=== PATIENT | female | born 1995 | race Caucasian/White ===

== ENCOUNTER 2022-03-02 09:20 | Outpatient (CLI) | payer BC, SELFPAY ==
[2022-03-02 14:36] LABS: Chloride* 97 mmol/L (96-114); Potassium* 4.1 mmol/L (3.6-5.1); Sodium* 136 mmol/L (135-149)
[2022-03-02 14:38] LABS: Creatinine* 0.6 mg/dL (0.5-1.5); Estimated Glomerular Filt Rate 128 ml/min
[2022-03-02 14:39] LABS: Blood Urea Nitrogen* 14 mg/dL (5-24); Calcium* 9.5 mg/dL (8.4-10.6); Carbon Dioxide* 29 mmol/L (20-32); Glucose* 89 mg/dL (60-115)
== END 2022-03-02 09:21 | disposition home or self-care (01) ==
LOC: LONREF 09:21
PROVIDERS: PCP Family Medicine; Visit Provider Family Medicine
DX: Z01.818 Encounter for other preprocedural examination (principal)
CPT/HCPCS: 80048

== ENCOUNTER 2022-06-27 10:02 | Outpatient (CLI) | payer BC, SELFPAY ==
--- NOTE | 2022-06-27 10:15 | CRLHL7_ITS ---
For Patients: As a result of the Century Cures Act, medical imaging exams and procedure reports are released immediately into your electronic medical record. You may view this report before your referring provider. If you have questions, please contact your health care provider. Indication: Infertility Technique: Hysterosalpingogram. Fluoroscopic time 39 seconds. IMPRESSION: Normal patency of the fallopian tubes with spillage into the peritoneum. No endometrial cavity filling defect. Dictated by Surinder De Guzman MD @ 06/27/2022 11:45:31 AM (Electronically Signed)
--- NOTE | 2022-06-27 10:58 | W.PM.GYNPROC ---
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 Infertility 2. Patent fallopian tubes bilaterally. NAME OF PROCEDURE: Hysterosalpingogram. ANESTHESIA: None. COMPLICATIONS: None. PROCEDURE: After obtaining verbal consent, the patient was placed in the dorsal lithotomy position on the x-ray table. An open-sided bivalve speculum was introduced into the vagina and the cervix easily visualized. The cervix and vagina were then prepped with Betadine. The posterior lip of the cervix was grasped with a single-tooth tenaculum for traction. Os binder/cervical dilator used: No. A balloon tipped double-lumen catheter was then gently inserted through the cervical opening into the uterine cavity to the level of the fundus. The balloon was insufflated with 3 mL of air. The tenaculum and speculum were removed. The patient was repositioned in the supine position, covered, and the radiologist was called to the room. A hysterosalpingogram was then performed. A total of 20 cc of Optiray 300 water soluble contrast dye was injected through the double-lumen catheter under moderate pressure. There was immediate fill of both fallopian tubes and free spillage of dye on both sides. The balloon was deflated and 10 additional cc was injected to visualize the entirety of the uterine cavity. Normal uterine cavity contour. The catheter was removed. The patient tolerated the procedure well, though she did have moderate cramping discomfort during and just after the procedure. She was discharged to home in stable condition and make an appointment with her physician to review all of her lab results and procedure results.
== END 2022-06-27 10:03 | disposition home or self-care (01) ==
LOC: RAD 10:02
PROVIDERS: PCP Family Medicine; Visit Provider Obstetrics & Gynecology
DX: N97.1 Female infertility of tubal origin (principal)
CPT/HCPCS: 58340; 74740; A4649; Q9967

== ENCOUNTER 2022-08-04 15:57 | Outpatient (CLI) | payer BC, SELFPAY | END 2022-08-04 15:58 | disposition home or self-care (01) | LOC: NFLDREF 08-09 21:54 | PROVIDERS: PCP Family Medicine; Referring Provider Family Medicine; Visit Provider Obstetrics & Gynecology | DX: N97.0 Female infertility associated with anovulation (principal) | CPT/HCPCS: 84144 ==

== ENCOUNTER 2022-12-29 08:20 | Outpatient (CLI) | payer BC, SELFPAY ==
--- NOTE | 2022-12-29 08:15 | CRLHL7_ITS ---
For Patients: As a result of the Century Cures Act, medical imaging exams and procedure reports are released immediately into your electronic medical record. You may view this report before your referring provider. If you have questions, please contact your health care provider. INDICATION: First trimester scan, establish dates. COMPARISON: None. TECHNIQUE: Real-time johnson-scale imaging of the pelvis was performed. FINDINGS: Sonographic imaging demonstrates a single living intrauterine gestation. The embryo demonstrates a regular cardiac rate measuring 168 beats per minute. The embryo`s crown-rump length measurement of 1.9 cm corresponds to a gestational age of 8 weeks 3 days with a sonographic due date of 08/07/2023. There is a normal-appearing yolk sac. There are no gross abnormalities noted within the embryo at this early state of development. The gestational sac has a normal appearance. There is no evidence of a perigestational hemorrhage. The amount of fluid within the sac appears appropriate for gestational age. The cervix is closed. The myometrium appears normal. The ovaries are of normal size. Corpus luteal cyst left ovary. There are no suspicious fluid collections noted in the cul-de-sac. IMPRESSION: Normal first trimester OB ultrasound exam. Gestational age calculated at 8 weeks 3 days with a sonographic due date of 08/07/2023. Dictated by Surinder De Guzman MD @ 12/29/2022 9:45:27 AM (Electronically Signed)
== END 2022-12-29 08:21 | disposition home or self-care (01) ==
LOC: US 08:21
PROVIDERS: PCP Family Medicine; Visit Provider Advanced Practice Midwife
DX: Z34.91 Encounter for supervision of normal pregnancy, unspecified, first trimester (principal); Z3A.08 8 weeks gestation of pregnancy
CPT/HCPCS: 76817; 82565; 82570; 84156; 84450; 84460; 84550; 86703; 86803; 86850; 86900; 86901; 87086; 87340

== ENCOUNTER 2022-12-29 09:20 | Outpatient (CLI) | payer BC, SELFPAY | END 2022-12-29 09:21 | disposition home or self-care (01) | PROVIDERS: PCP Family Medicine; Visit Provider Advanced Practice Midwife | DX: Z34.91 Encounter for supervision of normal pregnancy, unspecified, first trimester (principal); Z3A.08 8 weeks gestation of pregnancy | CPT/HCPCS: 82565; 82570; 84156; 84450; 84460; 84550; 86592; 86703; 86762; 86787; 86803; 86850; 86900; 86901; 87086; 87340 ==

== ENCOUNTER 2023-01-24 11:28 | Outpatient (CLI) | payer BC, SELFPAY | END 2023-01-24 11:29 | disposition home or self-care (01) | LOC: NFLDREF 11:42 | PROVIDERS: PCP Family Medicine; Visit Provider Obstetrics & Gynecology | DX: Z34.91 Encounter for supervision of normal pregnancy, unspecified, first trimester (principal); Z3A.12 12 weeks gestation of pregnancy | CPT/HCPCS: 84450; 84460; 87491; 87591 ==

== ENCOUNTER 2023-02-28 13:44 | Outpatient (CLI) | payer BC, SELFPAY | END 2023-02-28 13:45 | disposition home or self-care (01) | LOC: NFLDREF 13:45 | PROVIDERS: PCP Family Medicine; Visit Provider Internal Medicine | DX: R00.2 Palpitations (principal) | CPT/HCPCS: 84443 ==

== ENCOUNTER 2023-03-23 07:24 | Outpatient (CLI) | payer BC, SELFPAY ==
--- NOTE | 2023-03-23 07:15 | CRLHL7_ITS ---
For Patients: As a result of the Century Cures Act, medical imaging exams and procedure reports are released immediately into your electronic medical record. You may view this report before your referring provider. If you have questions, please contact your health care provider. INDICATION: 2nd trimester anatomical survey. TECHNIQUE: Ultrasound OB pelvis transabdominal. Real-time johnson-scale imaging of the fetus was performed as well as color Doppler and spectral Doppler analysis of the umbilical artery. COMPARISON: December 29, 2022. FINDINGS: There is a single living intrauterine gestation. heart activity: Regular cardiac rate of 154 beats per minute. Orientation: Variable. Placenta: Anterior. No previa. Amniotic fluid volume: Normal. Deepest pocket 5 cm. Cervix: 4 cm. Biometry: Biparietal diameter: 20 weeks 3 days, 46 percentile. Head circumference: 20 weeks 2 days, 29th percentile. Abdominal circumference: 21 weeks 0 days, 57th percentile. Femoral length: 19 weeks 6 days, 21st percentile. The composite ultrasound gestational age is calculated at 20 weeks 4 days with an estimated sonographic due date of August 06, 2023. The weight is estimated at 356 grams, the 39th percentile. Anatomical Survey: 4 chamber heart: Visualized. Stomach: Visualized. Kidneys: Visualized. Bladder: Visualized. Spine: Visualized. Sacrum: Visualized. 4 extremities: Visualized. Cord insertion: Visualized. 3V cord: Visualized. Face: Visualized. Nose: Visualized. Lips: Visualized. Cerebellum: Visualized. Cisterna Magna: Visualized. Lateral ventricles: Visualized. IMPRESSION: 1. Single viable intrauterine . 2. No intrinsic abnormalities noted on anatomic survey. Dictated by Art Teresa MD @ 03/24/2023 10:51:26 AM (Electronically Signed)
== END 2023-03-23 07:25 | disposition home or self-care (01) ==
LOC: US 07:25
PROVIDERS: PCP Family Medicine; Visit Provider Obstetrics & Gynecology
DX: Z34.92 Encounter for supervision of normal pregnancy, unspecified, second trimester (principal); Z3A.20 20 weeks gestation of pregnancy
CPT/HCPCS: 76805; 87086

== ENCOUNTER 2023-05-16 10:07 | Outpatient (CLI) | payer BC, SELFPAY ==
--- OUTSIDE RECORDS SUMMARY | 2023-05-17 11:08 | XMS_ITS | Encounter Summary ---
Author Name Unknown Organization [facility] Address [address] [place] [address] Care Team Providers Care Herb Doctor Name Role Phone Jessenia Lott APRN C.N.P. Primary Care Pro vider Reason for Referral * Medication Prior Authorization - Closed Specialty Diagnoses / Procedures Referred By Shabnam zapata Referred To Contact Chai Saab D.O. [facility] [place] [address] Referral ID Status Reason Start Date Expiration Date Visits Re quested Visits Authorized [id number] Closed 1 1 Reason for Visit * Reason Comments Flank Pain Pt states pain/urgen cy/frequency that started on monday. Back pain and pelvic pain started on Monday afternoon. Encounter Details Date Type Department Care Team (Late st Contact Info) Description 12/03/2022 8:32 AM CDT - 12/03/2022 12:20 PM CDT Emergency [facility] [address] [place] [phone] Chai Saab D.O. [address] [place] [phone] Pyelonephritis Acute (Primary Dx); Cystitis Hemorrhagic Discharge Disposition: Home or Self Care Social History Tobacco Use Types Packs/Day Years Used Date Smoking Tobacco: Never Smokeless Tobacco: Never Alcohol Use Standard Drinks/Week Comments Yes 0 (1 standard drink = 0.6 oz pur e alcohol) Social Humiliation, Afraid, Rape, and Kick questionnair e Answer Date Recorded Within the last year, have y ou been afraid of your partner or ex-partner? No 12/14/2021 Within the last year, have y ou been humiliated or emotionally abused in other ways by your partner or ex-partner? No Within the last year, have y ou been kicked, hit, slapped, or otherwise physically hurt by your partner or ex-partner? No 12/14/2021 Within the last year, have y ou been raped or forced to have any kind of sexual activity by your partner or ex-partner? No 12/14/2021 Social Connection and Isolat ion Panel [NHANES] Answer Date Recorded In a typical week, how many times do you talk on the phone with family, friends, or neighbors? More than three times a week 12/14/2021 How often do you get togethe r with friends or relatives? Three times a week 12/14/2021 How often do you attend [facility] or church services? 1 to 4 times per year 12/14/2021 Do you belong to any clubs o r organizations such as mormonism groups, unions, fraternal or athletic groups, or school groups? No 12/14/2021 How often do you attend meet ings of the clubs or organizations you belong to? Never 12/14/2021 Are you , , di vorced, , never , or living with a partner? Living with partner 12/14/2021 AUDIT-C Answer Date Recorded Q1: How often do you have a drink containing alc ohol? 2-3 times a week 12/14/2021 Q2: How many drinks containi ng alcohol do you have on a typical day when you are drinking? 1 or 2 12/14/2021 Q3: How often do you have si x or more drinks on one occasion? Never 12/14/2021 Overall Financial Resource Strain (CARDIA) Answe r Date Recorded How hard is it for you to pa y for the very basics like food, housing, medical care, and heating? Not hard at all 12/14/2021 PHQ-2 Answer Date Recorded PHQ-2 Score 0 05/18/2021 [facility] - Occupational Stress Questionnaire Answer Date Recorded Do you feel stress - tense, restless, nervous, or anxious, or unable to sleep at night because your mind is troubled all the time - these days? Only a little 12/14/2021 Exercise Vital Sign Answer Date Recorde d On average, how many days pe r week do you engage in moderate to strenuous exercise (like a brisk walk)? 3 days 12/14/2021 On average, how many minutes do you engage in exercise at this level? 30 min 12/14/2021 Hunger Vital Sign Answer Date Recorded Within the past 12 months, y ou worried that your food would run out before you got the money to buy more. Never true 12/15/19 Within the past 12 months, t he food you bought just didn't last and you didn't have money to get more. Never true 12/14/2021 PRAPARE - Transportation Answer Date Re corded In the past 12 months, has l ack of transportation kept you from medical appointments or from getting medications? No 11/23 In the past 12 months, has l ack of transportation kept you from meetings, work, or from getting things needed for daily living? No 12/14/2021 Housing Stability Vital Sign Answer Zaki e Recorded In the last 12 months, was t here a time when you were not able to pay the mortgage or rent on time? No 12/14/2021 In the last 12 months, how many places have you lived? 1 12/14/2021 In the last 12 months, was t here a time when you did not have a steady place to sleep or slept in a intermediate (including now)? No 12/14/2021 Nutrition Answer Date Recorded Nutrition: EVOO Fat Source No 12/14 On average, how many serving s of fruits and vegetables do you eat per day (serving size is equal to 1 cup or approximately the size of a tennis ball)? 0-1 12/14/2021 Dental Answer Date Recorded Dental: Regular Dentist Yes 05/18/19 Employment Answer Date Recorded Employment status Employed and actively working without restrictions 12/14/2021 Education Answer Date Recorded What is the highest level of school you have completed or the highest degree you have received? 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 - 12/03/2022 9:58 AM CDT You were seen in the emergency department for evaluation of your symptoms. Your ultrasound is most consistent with early that is complicated by clinical early pyelonephritis. Urine and blood cultures are pending. A dose of antibiotics and IV fluids were given here. Please utilize the painmedication as prescribed. You may take up to 1000 mg of Tylenol every 6 hours and your pain medication also has Tylenol in it and should be factor into this total. The pain medication has a small component of narcotics in it and you should not drive or do anything important as it can make you sleepy/slow reflexes and executive functioning. Please do follow-up with your primary care and obstetricsteams this week where a repeat beta quant/ hormone test and ultrasound should be considered. * Attachments The following attachments cannot be sent through Care Everywhere. * Pyelonephritis During (Pashto) documented in this encounter Medications at Time of Discharge Medication Sig Dispensed Refills Start Date End Date amoxicillin (AMOXIL) 500 mg capsuleIndications:Katy tis Media Acute Serous Right Take 2 capsules (1,000 mg total) by mouth 2 (two) times a day. 40 capsule 0 08/08/2021 dextroamphetamine-amph etamine (ADDERALL) 20 mg tablet Take 20 mg by mouth daily. 0 07/02/2021 naproxen (NAPROSYN) 500 mg tabletIndications:Pain Back Take 1 tablet twice daily with food for the next 5 days and then take twice daily as needed for pain. 24 tablet 0 06/02/2022 113/iron/lmfol/omeg3s ( [id number] ORAL) Take 1 tablet by mouth daily. 0 12/11/2018 spironolactone (ALDACTONE) 50 mg tablet Take 1 tablet by mouth daily. 100 mg in the AM and 50 mg in the PM 0 05/18/2021 SUMATRIPTAN SUCCINATE ORAL 50 mg as needed. 0 11/08/2021 cephalexin (KEFLEX) 500 mg capsule Take 2 capsules (1,000 mg total) by mouth every 12 (twelve) hours for 10 days. 40 capsule 0 12/03/2022 12/13/2022 HYDROcodone-acetaminop hen (NORCO) 5-325 mg per tabletIndications:Acut e Pain Take 1 tablet by mouth every 4 (four) hours as needed for pain for up to 3 days Indication: Acute Pain. 12 tablet 0 12/03/2022 12/06/2022 documented as of this encounter ED Notes * Chai Saab D.O. - 12/03/2022 8:55 AM CDT SUBJECTIVE CHIEF COMPLAINT / REASON FOR VISIT: Flank Pain (Pt states pain/urgency/frequency that started on monday. Back pain and pelvic pain started on Monday afternoon. ) HISTORY OF PRESENT ILLNESS Carmen Madrigal is a 27 y.o. 001 female who presents to the Emergency Department with a chief complaint of bilateral flank pain and abdominal pain. The patient is currently going to infertility treatments by use of letrozole. The patient took Tylenol at 03:00 and noted a slight improvement in her pain but notes a constant 5/10 pain. The patient notes on Monday, 3 days prior, patient hadburning, frequency, and urge with urination. The patient went to urgent care yesterday and was toldshe had a normal urinalysis. A speculum exam and wet prep was also performed and reported as negative. Patient without subjective or objective fevers. Patient has not yet had her first trimester ultrasound and LMP was 1 month prior on October 30. The patient notes her pelvic pain and flank pain worsened yesterday and did not have flank pain at her urgent care visit yesterday. REVIEW OF SYSTEMS Constitutional: Negative for fever. HENT: Negative for congestion. Respiratory: Negative for cough and shortness of breath. Cardiovascular: Negative for chest pain. Gastrointestinal: Positive for abdominal pain. Negative for nausea and vomiting. Genitourinary: Positive for dysuria, flank pain, frequency and urgency. Negative for hematuria. Musculoskeletal: Negative for back pain. Skin: Negative for rash. Allergic/Immunologic: Negative for immunocompromised state. Neurological: Negative for headaches. Psychiatric/Behavioral: Negative for confusion. ALLERGIES / CONTRAINDICATIONS Reviewed in medical record. CURRENT MEDICATIONS Reviewed in medical record. MEDICAL HISTORY History reviewed. No pertinent past medical history. There are no problems to display for this patient. SURGICAL HISTORY History reviewed. No pertinent surgical history. FAMILY HISTORY Reviewed in chart. SOCIAL HISTORY Social History Tobacco Use Smoking status: Never Smokeless tobacco: Never Substance Use Topics Alcohol use: Yes Comment: Social Social History Substance and Sexual Activity Drug Use Never OBJECTIVE INITIAL VITAL SIGNS: Initial Vitals Temperature 12/03/22 0834 37.5 ??C Pulse Rate 12/03/22 0834 67 Heart Rate -- Resp Rate 12/03/22 0834 16 Blood Pressure 12/03/22 0834 122/81 SpO2 12/03/22 0834 98 % Pain Score 12/03/22 0827 5 - Moderate pain PHYSICAL EXAMINATION Constitutional: Nursing note and vitals reviewed. No distress. HENT: Head: Normocephalic and atraumatic. Nose: Nose normal. No nasal discharge. Mouth/Throat: Mucous membranes are dry. Eyes: Conjunctivae are normal. Cardiovascular: Normal rate and regular rhythm. Pulmonary/Chest: Effort normal and breath sounds normal. There is normal air entry. No respiratory distress. Abdominal: Soft. exhibits no distension. There is abdominal tenderness (Mild diffuse). There is no rebound and no guarding. Trace bilateral CVA tenderness Musculoskeletal: General: Normal range of motion. Neurological: Alert and oriented to person, place, and time. Skin: Skin is intact and normal color. She is not diaphoretic. Psychiatric: She has a normal mood and affect. Behavior is normal. ED COURSE: ED Course as of 12/03/22 1204 Sat Dec 03, 2022 0927 us 0956 Ultrasound on-call coming into the facility. Patient's pain improved. Did discuss with obstetrics on-call who recommended ultrasound to rule out ectopic. Urine culture pending. Patient with dry oral mucosa and will place IV to give IV fluids and first dose of antibiotics. Blood cultures obtained from that draw. 1202 Ultrasounds reassuring given quant and patient's exam. Patient feeling much better at this time. Patient will require repeat beta quant and ultrasound at OB follow-up and patient advised to contact OB on Monday to update with this ED visit. Strict ED return precautions given. 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 Narcotic precautions also given. Abdominal exam remains benign and reassuring. VSS. Final Diagnoses: as of 12/03/22 1204 Pyelonephritis Acute Cystitis Hemorrhagic INTERVENTIONS: Medications sodium chloride 0.9 % injection 3 mL (has no administration in time range) sodium chloride 0.9 % injection 10 mL (has no administration in time range) sodium chloride 0.9 % injection 3 mL (3 mL intravenous Given 12/03/22 0914) HYDROcodone-acetaminophen 5-325 mg per tablet 2 tablet (NORCO) (2 tablets oral Given 12/03/22 0851) NaCl 0.9 % bolus 1,000 mL ( intravenous Restarted 12/03/22 1102) cefTRIAXone injection 2 g (ROCEPHIN) (2 g intravenous Given 12/03/22 1014) DIAGNOSTICS LABS: Labs Reviewed CBC WITH DIFFERENTIAL, B - Abnormal Result Value Hemoglobin 12.6 Hematocrit 36.9 Erythrocytes 3.92 MCV 94.1 RBC Distrib Width 11.8 (*) Platelet Count 185 Leukocytes 9.4 Neutrophils 7.34 (*) Lymphocytes 1.33 Monocytes 0.66 Eosinophils 0.10 Basophils 0.01 COMPREHENSIVE METABOLIC PANEL, S/P - Abnormal Potassium, P 3.6 Sodium, P 139 Chloride, P 102 Bicarbonate, P 26 Anion Gap, P 11 BUN (Blood Urea Nitrogen), P 11 Creatinine 0.66 Estimated GFR (eGFR) >90 Calcium, Total, P 9.6 Glucose, P 95 Protein, Total, P 7.5 Albumin, P 4.5 Aspartate Aminotransferase (AST), P 22 Alkaline Phosphatase, P 37 Alanine Aminotransferase (ALT), P 15 Bilirubin, Total, P 1.6 (*) URINALYSIS WITH MICROSCOPIC - Abnormal Source Urine, Urine, Midstream Clarity Cloudy (*) Color Yellow Blood Large (*) Nitrite Positive (*) Leukocyte Esterase Small (*) Protein >=300 (*) Glucose Negative Ketones, QI(U) Negative Bilirubin Negative pH 7.0 Specific [place] 1.020 Urobilinogen 0.2 White Blood Cells 51-100 (*) Red Blood Cells 51-100 (*) Dysmorphic Red Blood Cells <=25 Squamous Cells Occ-3 Bacteria Present (*) HUMAN CHORIONIC GONADOTROPIN (HCG), RADHA, - Abnormal HCG, Quantitative, , P 398 (*) BACTERIAL CULTURE, AEROBIC + SUSC, URINE BACTERIA / AUBRIE CULTURE, BLOOD Narrative: Specimen Information: Specimen ID: [id number] Specimen Source: Blood, Peripheral IV Specimen Comment: Specimen Source Site: Blood Specimen Collection Start Date: 12/03/2022 10:02 AM Specimen Received Date: 12/03/2022 10:18 AM Specimen ID: [id number] Specimen Source: Blood, Peripheral IV Specimen Comment: Specimen Source Site: Blood Specimen Collection Start Date: 12/03/2022 10:02 AM Specimen Received Date: 12/03/2022 10:18 AM Specimen ID: [id number] Specimen Source: Blood, Peripheral IV Specimen Comment: Specimen Source Site: Blood Specimen Collection Start Date: 12/03/2022 10:02 AM Specimen Received Date: 12/03/2022 10:18 AM BACTERIA / AUBRIE CULTURE, BLOOD Narrative: Specimen Information: Specimen ID: [id number] Specimen Source: Blood, Peripheral Draw Specimen Comment: Specimen Source Site: Blood Specimen Collection Start Date: 12/03/2022 10:14 AM Specimen Received Date: 12/03/2022 10:20 AM Specimen ID: [id number] Specimen Source: Blood, Peripheral Draw Specimen Comment: Specimen Source Site: Blood Specimen Collection Start Date: 12/03/2022 10:14 AM Specimen Received Date: 12/03/2022 10:20 AM Specimen ID: [id number] Specimen Source: Blood, Peripheral Draw Specimen Comment: Specimen Source Site: Blood Specimen Collection Start Date: 12/03/2022 10:14 AM Specimen Received Date: 12/03/2022 10:20 AM ABORH, RBC ABO Group A Rh Type POS LACTATE, B/P Lactate, P 0.7 ECG: RADIOLOGY: US OB First Trimester and Transvaginal Final Result of unknown location. No evidence of intrauterine . Possibilities include an intrauterine too early to be identified, miscarriage, or ectopic that is not seen. No positive findings of ectopic . US Kidneys Bilateral with Bladder Final Result Normal kidneys. PROCEDURES: None ASSESSMENT / PLAN I reviewed previous medical records including documentation from previous visits and lab results. The patient is a pleasant 27 y.o. female who presents to the emergency department with a chief complaint of abdominal pain, bilateral flank pain, urinary frequency, urge, and dysuria in the setting of early . The patient is currently undergoing fertility treatments and tested positive yeste rday patient has not yet had ultrasound to confirm IUP or rule out heterotopic. The patient's presentation is complicated by and infertility treatments. A broad differential appropriate for patient's underlying medical conditions, chief complaint, HPI,and physical exam was considered however the patient's clinical presentation is most consistent with developing pyelonephritis. The patient is in no acute cardiopulmonary distress and is nontoxic in appearance. The patient is hemodynamically stable. Disposition pending workup. Workup will begin with labs, urinalysis, and discussion with OB. Ultrasound on- call in currently unavailable. Did discuss the importance of ultrasound for both flank pain and determining location of to be critically important for patient bedside ultrasound unlikely to be helpful and exam is not consistent with acutely surgical process/peritoneal space filled with blood. Will begin treating patient's symptoms with p.o. Meno as discussions of pain control in first trimester discuss and very limited improvement with Tylenol 6 hours prior. Disposition pending aforementioned workup. DIAGNOSIS: Final diagnoses: [N10] Pyelonephritis Acute [N30.90] Cystitis Hemorrhagic ED DISCHARGE MEDS: ED Prescriptions Medication Sig Dispense Start Date End Date Auth. Provider cephalexin (KEFLEX) 500 mg capsule Take 2 capsules (1,000 mg total) by mouth every 12 (twelve) hours for 10 days. 40 capsule 12/03/2022 12/13/2022 Chai Saab D.O. HYDROcodone-acetaminophen (NORCO) 5-325 mg per tablet Take 1 tablet by mouth every 4 (four) hours as needed for pain for up to 3 days Indication: Acute Pain. 12 tablet 12/03/2022 12/06/2022 Chai Saab D.O. DISPOSITION: Home FOLLOW UP: PCP Chai Saab D.O. Emergency Medicine Chai Saab D.O. 12/03/22 1205 documented in this encounter Plan of Treatment Not on file documented as of this encounter Procedures Procedure Name Priority Date/Time Associated Diagnosis Comments US OB FIRST TRIMESTER AND TRANSVAGINAL RAD - Semiurgent (Fast; most ED patients; some inpatients) 12/03/2022 11:05 AM CDT US KIDNEYS BILATERAL WITH BLADDER RAD - Semiurgent (Fast; most ED patients; some inpatients) 12/03/2022 11:05 AM CDT BACTERIA / AUBRIE CULTURE, BLOOD STAT 12/03/2022 10:14 AM CDT LACTATE, B/P STAT 12/03/2022 10:14 AM CDT BACTERIA / AUBRIE CULTURE, BLOOD STAT 12/03/2022 10:02 AM CDT BACTERIAL CULTURE, AEROBIC + SUSC, URINE STAT 12/03/2022 9:09 AM CDT URINALYSIS WITH MICROSCOPIC STAT 12/03/2022 9:09 AM CDT ABORH, RBC STAT 12/03/2022 8:56 AM CDT CBC WITH DIFFERENTIAL, B STAT 12/03/2022 8:56 AM CDT HUMAN CHORIONIC GONADOTROPIN (HCG), RADHA, STAT 12/03/2022 8:56 AM CDT COMPREHENSIVE METABOLIC PANEL, S/P STAT 12/03/2022 8:56 AM CDT documented in this encounter Results * US OB First Trimester and Transvaginal (12/03/2022 11:05 AM CDT) Anatomical Region Laterality Modality Body, Ultrasound OB RST LOS, Ultrasound ARZ LOS, Ultrasound FLA LOS N/A Ultrasound 12/03/2022 11:5 5 AM CDT Impressions 12/03/2022 11:59 AM CDT of unknown location. No evidence of intrauterine . Possibilities include an intrauterine too early to be identified, miscarriage, or ectopic that is not seen. No positive findings of ectopic . Narrative 12/03/2022 11:59 AM CDT EXAM: US OB FIRST TRIMESTER AND TRANSVAGINAL COMPARISON: None TECHNIQUE: Transabdominal and Transvaginal FINDINGS: Number of Gestations: Single Gestational age and DIRK by LMP or OB/EHR assignment: 4 w 6 d, DIRK: 08/06/2023 INTRAUTERINE Pole: Not seen Gestational Sac: Not seen Yolk Sac: Not seen Uterus: Thickened endometrium. Trace fluid in the endometrial canal. Right Ovary/Adnexa: Normal. Left Ovary/Adnexa: 1.3 cm corpus luteum. Intraperitoneal Fluid: Trace. Procedure Note Jack Castillo M.D. - 12/03/2022 EXAM: US OB FIRST TRIMESTER AND TRANSVAGINAL COMPARISON: None TECHNIQUE: Transabdominal and Transvaginal FINDINGS: Number of Gestations: Single Gestational age and DIRK by LMP or OB/EHR assignment: 4 w 6 d, DIRK:08/06/2023 INTRAUTERINE Pole: Not seen Gestational Sac: Not seen Yolk Sac: Not seen Uterus: Thickened endometrium. Trace fluid in the endometrial canal. Right Ovary/Adnexa: Normal. Left Ovary/Adnexa: 1.3 cm corpus luteum. Intraperitoneal Fluid: Trace. IMPRESSION: of unknown location. No evidence of intrauterine .Possibilities include an intrauterine too early to be identified, miscarriage,or ectopic that is not seen. No positive findings of ectopic . Chai Saab D.O. IMG OB US PROCEDURE S * US Kidneys Bilateral with Bladder (12/03/2022 11:05 AM CDT) Anatomical Region Laterality Modality Abdomen, Renal, Ultrasound R ST LOS, Ultrasound ARZ LOS, Ultrasound FLA LOS Bilateral Ultrasound 12/03/2022 11:5 2 AM CDT Impressions 12/03/2022 11:54 AM CDT Normal kidneys. Narrative 12/03/2022 11:54 AM CDT EXAM: US KIDNEYS BILATERAL WITH BLADDER COMPARISON: None FINDINGS: Right kidney: 11.2 cm Cortical thickness: Normal. Parenchymal echogenicity: Normal. Collecting system: No hydronephrosis. Masses: None detected. Left kidney: 9.9 cm Cortical thickness: Normal. Parenchymal echogenicity: Normal. Collecting system: No hydronephrosis. Masses: None detected. Bladder: Nondistended. Procedure Note Jack Castillo M.D. - 12/03/2022 EXAM: US KIDNEYS BILATERAL WITH BLADDER COMPARISON: None FINDINGS: Right kidney: 11.2 cm Cortical thickness: Normal. Parenchymal echogenicity: Normal. Collecting system: No hydronephrosis. Masses: None detected. Left kidney: 9.9 cm Cortical thickness: Normal. Parenchymal echogenicity: Normal. Collecting system: No hydronephrosis. Masses: None detected. Bladder: Nondistended. IMPRESSION: Normal kidneys. Chai Saab D.O. IMG US PROCEDURES * Lactate, baseline (12/03/2022 10:14 AM CDT) Lactate, P 0.7 0.5 - 2.2 mmol/L 12/03/2022 10:39 AM CDT NPRG Blood (Blood, Venous) 12/03/2022 10:14 AM CDT 12/03/2022 10:19 AM CDT Chai Saab D.O. LAB BLOOD NON ADD-O N [facility] [address] [place] [address], [place] [address] [place] [address] * Bacteria / Aubrie Culture, Blood #2 (12/03/2022 10:14 AM CDT) Bacteria/Alise da Culture, Blood No growth after 5 day/s of incubation. 12/08/2022 11:03 AM CDT NPRG Blood (Blood, Peripheral Draw) 12/03/2022 10:14 AM CDT 12/03/2022 10:20 AM CDT Comment:Specimen Source Site : Blood Chai Saab D.O. LAB MICROBIOLOGY - GENERAL ORDERABLES Performing Organization Address City/[facility]/ZIP Co de Phone Number [facility] [address] [place] [address], [place] [address] [place] [address] * Bacteria / Aubrie Culture, Blood #1 (12/03/2022 10:02 AM CDT) Bacteria/Alise da Culture, Blood No growth after 5 day/s of incubation. 12/08/2022 11:03 AM CDT NPRG Blood (Blood, Peripheral IV) 12/03/2022 10:02 AM CDT 12/03/2022 10:18 AM CDT Comment:Specimen Source Site : Blood Chai Saab D.O. LAB MICROBIOLOGY - GENERAL ORDERABLES Performing Organization Address City/[facility]/ZIP Co de Phone Number [facility] [address] [place] [address], [place] [address] [place] [address] * (ABNORMAL) Bacterial Culture, Aerobic + Susceptibility, Urine (12/03/2022 9:09 AM CDT) [facility] Urine Culture ESCHERICHIA COLI >100,000 cfu/mL (A) 12/05/2022 8:48 AM CDT MKTO Urine (Urine, Midstream) 12/03/2022 9:09 AM CDT 12/03/2022 5:01 PM CDT Comment:Specimen Source Site : Urine Narrative Organism Antibiotic Method Susceptibility Escherichia coli Ampicillin SUSCEPTIBILITY, VENUS (MCG/ML) <=2 mcg/mL: Susceptible Escherichia coli Ampicillin + Sulbactam SUSCEPTI BILITY, VENUS (MCG/ML) <=2 mcg/mL: Susceptible Escherichia coli Piperacillin + Tazobactam SUSCE PTIBILITY, VENUS (MCG/ML) <=4 mcg/mL: Susceptible Escherichia coli Cefazolin SUSCEPTIBILITY, VENUS (MCG/ML) <=4 mcg/mL: Susceptible Comment: The interpretation applies to uncomplicated urinary tract infections only. It also applies to these oral cephalosporins: cefuroxime, cephalexin, and cefprozil. Escherichia coli Ceftazidime SUSCEPTIBILITY, VENUS (MCG/ML) <=1 mcg/mL: Susceptible Escherichia coli Ceftriaxone SUSCEPTIBILITY, VENUS (MCG/ML) <=1 mcg/mL: Susceptible Escherichia coli Cefepime SUSCEPTIBILITY, VENUS (MCG/ML) <=1 mcg/mL: Susceptible Escherichia coli Aztreonam SUSCEPTIBILITY, VENUS (MCG/ML) <=1 mcg/mL: Susceptible Escherichia coli Ertapenem SUSCEPTIBILITY, VENUS (MCG/ML) <=0.5 mcg/mL: Susceptible Escherichia coli Meropenem SUSCEPTIBILITY, VENUS (MCG/ML) <=0.25 mcg/mL: Susceptible Escherichia coli Gentamicin SUSCEPTIBILITY, VENUS (MCG/ML) <=1 mcg/mL: Susceptible Escherichia coli Tobramycin SUSCEPTIBILITY, VENUS (MCG/ML) <=1 mcg/mL: Susceptible Escherichia coli Levofloxacin SUSCEPTIBILITY, VENUS (MCG/ML) <=0.12 mcg/mL: Susceptible Escherichia coli Nitrofurantoin SUSCEPTIBILITY, VENUS (MCG/ML) <=16 mcg/mL: Susceptible Escherichia coli Trimethoprim + Sulfamethoxazole SUSCEPTIBILITY, VENUS (MCG/ML) <=20 mcg/mL: Susceptible Chai Saab D.O. LAB MICROBIOLOGY - GENERAL ORDERABLES [facility] [address] [place] [address], [facility] MKTO [facility] [place] [address] [place] [address] * (ABNORMAL) Urinalysis with Microscopic: Urine, Midstream (12/03/2022 9:09 AM CDT) Source Urine, Urine, Midstream 12/03/2022 9:09 AM CDT NPRG Clarity Cloudy(A) Clear 12/03/2022 9:12 AM CDT NPRG Color Yellow 12/03/2022 9:12 AM CDT NPRG Comment: ----REFERENCE VALUE---- Colorless Yellow [place] Blood Large(A) Negative 12/03/2022 9:12 AM CDT NPRG Nitrite Positive(A) Negative 12/03/2022 9:12 AM CDT NPRG Leukocyte Esterase Small(A) Negative 12/03/2022 9:12 AM CDT NPRG Protein >=300(A) mg/dL 12/03/2022 9:12 AM CDT NPRG Comment: ----REFERENCE VALUE---- Negative Trace Glucose Negative Negative mg/dL 12/03/2022 9:12 AM CDT NPRG Ketones, QI(U) Negative Negative mg/dL 12/03/2022 9:12 AM CDT NPRG Bilirubin Negative Negative 12/03/2022 9:12 AM CDT NPRG pH 7.0 5.0 - 8.0 12/03/2022 9:12 AM CDT NPRG Specific [place] 1.020 1.001 - 1.035 12/03/2022 9:12 AM CDT NPRG Urobilinogen 0.2 0.2 - 1.0 mg/dL 12/03/2022 9:12 AM CDT NPRG White Blood Cells 51-100(A) /hpf 12/03/2022 9:25 AM CDT NPRG Comment: ----REFERENCE VALUE---- Males: 0-3 Females: 0-10 Unknown: 0-10 Red Blood Cells 51-100(A) 0 - 2 /hpf 9:25 AM CDT NPRG Dysmorphic Red Blood Cells <=25 <=25 % 12/03/2022 9:25 AM CDT NPRG Squamous Cells Occ-3 /hpf 12/03/2022 9:25 AM CDT NPRG Bacteria Present(A) None Seen 12/03/2022 9:25 AM CDT NPRG Urine (Urine, Midstream) 12/03/2022 9:09 AM CDT 12/03/2022 9:09 AM CDT Chai Saab D.O. LAB URINE ORDERABLE S Performing Organization Address City/[facility]/ZIP Co de Phone Number [facility] [address] [place] [address], [facility] NPRG [place] [address] [place] [address] * ABO/Rh, RBC (12/03/2022 8:56 AM CDT) ABO Group A 12/03/2022 10: 13 AM CDT NPRG Rh Type POS 12/03/2022 10: 13 AM CDT NPRG Blood (Blood, Venous) 12/03/2022 8:56 AM CDT 12/03/2022 9:00 AM CDT Chai Saab D.O. LAB BLOOD BANK TEST ORDERABLES Performing Organization Address [facility] Co de Phone Number [facility] [address] [place] [address], [facility] NPRG [address] [address] * (ABNORMAL) hCG (Human Chorionic Gonadotropin), Quantitative, (12/03/2022 8:56 AM CDT) HCG, Quantitative, , P 398(H) <5 IU/L 12/03/2022 9:22 AM CDT NPRG Blood (Blood, Venous) 12/03/2022 8:56 AM CDT 12/03/2022 9:00 AM CDT Chai Saab D.O. LAB BLOOD ADD-ON Performing Organization Address City/[facility]/ZIP Co de Phone Number [facility] [address] [place] [address], [place] NPRG [facility] [address] [place] [address] * (ABNORMAL) Comprehensive Metabolic Panel (12/03/2022 8:56 AM CDT) Potassium, P 3.6 3.6 - 5.2 mmol/L 12/03/2022 9:24 AM CDT NPRG Sodium, P 139 135 - 145 mmol/L 12/03/2022 9:24 AM CDT NPRG Chloride, P 102 98 - 107 mmol/L 12/03/2022 9:24 AM CDT NPRG Bicarbonate, P 26 22 - 29 mmol/L 12/03/2022 9:24 AM CDT NPRG Anion Gap, P 11 7 - 15 12/03/2022 9:24 AM CDT NPRG BUN (Blood Urea Nitrogen), P 11 6 - 21 mg/dL 12/03/2022 9:24 AM CDT NPRG Creatinine 0.66 0.59 - 1.04 mg/dL 12/03/2022 9:24 AM CDT NPRG Estimated GFR (eGFR) >90 >=60 mL/min/BS A 12/03/2022 9:24 AM CDT NPRG Comment: Estimated GFR calculated using the 2020 CKD_EPI creatinine equation. Calcium, Total, P 9.6 8.6 - 10.0 mg/dL 12/03/2022 9:24 AM CDT NPRG Glucose, P 95 70 - 140 mg/dL 12/03/2022 9:24 AM CDT NPRG Protein, Total, P 7.5 6.3 - 7.9 g/dL 12/03/2022 9:24 AM CDT NPRG Albumin, P 4.5 3.5 - 5.0 g/dL 12/03/2022 9:24 AM CDT NPRG Aspartate Aminotransferase (AST), P 22 8 - 43 U/L 12/03/2022 9:24 AM CDT NPRG Alkaline Phosphatase, P 37 35 - 104 U/L 12/03/2022 9:24 AM CDT NPRG Alanine Aminotransferase (ALT), P 15 7 - 45 U/L 12/03/2022 9:24 AM CDT NPRG Bilirubin, Total, P 1.6(H) <=1.2 mg/dL 12/03/2022 9:24 AM CDT NPRG Blood (Blood, Venous) 12/03/2022 8:56 AM CDT 12/03/2022 9:00 AM CDT Chai Saab D.O. LAB BLOOD ADD-ON [facility] [address] [place] [address], [facility] NPRG [facility] [address] [place] [address] * (ABNORMAL) CBC with Differential, Blood (12/03/2022 8:56 AM CDT) Hemoglobin 12.6 11.6 - 15.0 g/dL 12/03/2022 9:05 AM CDT NPRG Hematocrit 36.9 35.5 - 44.9 % 12/03/2022 9:05 AM CDT NPRG Erythrocytes 3.92 3.92 - 5.13 x10(12)/L 12/03/2022 9:05 AM CDT NPRG MCV 94.1 78.2 - 97.9 fL 12/03/2022 9:05 AM CDT NPRG RBC Distrib Width 11.8(L) 12.2 - 16.1 % 12/03/2022 9:05 AM CDT NPRG Platelet Count 185 157 - 371 x10(9)/L 12/03/2022 9:05 AM CDT NPRG Leukocytes 9.4 3.4 - 9.6 x10(9)/L 12/03/2022 9:05 AM CDT NPRG Neutrophils 7.34(H) 1.56 - 6.45 x10(9)/L 12/03/2022 9:05 AM CDT NPRG Lymphocytes 1.33 0.95 - 3.07 x10(9)/L 12/03/2022 9:05 AM CDT NPRG Monocytes 0.66 0.26 - 0.81 x10(9)/L 12/03/2022 9:05 AM CDT NPRG Eosinophils 0.10 0.03 - 0.48 x10(9)/L 12/03/2022 9:05 AM CDT NPRG Basophils 0.01 0.01 - 0.08 x10(9)/L 12/03/2022 9:05 AM CDT NPRG Blood (Blood, Venous) 12/03/2022 8:56 AM CDT 12/03/2022 9:00 AM CDT Chai Saab D.O. LAB BLOOD ADD-ON [facility] [address] [place] [address], [place] NPRG [facility] [address] [place] [address] documented in this encounter Visit Diagnoses Diagnosis Pyelonephritis Acute- Primary Cystitis Hemorrhagic documented in this encounter Administered Medications Inactive Administered Medications - up to 3 most recent administrations Medication Order MAR Action Action Date Dose Rate Site cefTRIAXone injection 2 g (ROCEPHIN) 2 g, intravenous, Once, On 12/03/22 at 0955, For 1 dose, If needed, reconstitute vial per package insert instructions. See IVAG for administration guidelines., Drug Monitoring Program: Pharmacist to adjust medication dosing based on indication and drug clearance factors., Indications: Upper UTI (pyelonephritis) Given 12/03/2022 10:14 AM CDT 2 g HYDROcodone-acetaminophen 5-325 mg per tablet 2 tablet (NORCO) 2 tablet, oral, Once, On 12/03/22 at 0849, For 1 dose Given 12/03/2022 8:51 AM CDT 2 tablets NaCl 0.9 % bolus 1,000 mL 1,000 mL, intravenous, at 1,000 mL/hr, Administer over 1 Hours, Once, On 12/03/22 at 0955, For 1 dose Restarted 12/03/2022 11:02 AM CDT 1000 mL/hr New Bag 12/03/2022 10:15 AM CDT 1,000 mL 1000 mL/hr sodium chloride 0.9 % injection 10 mL 10 mL, intravenous, As needed, line care, Starting on 12/03/22 at 0846, Peripheral Intravenous Catheter and Rapid Infusion Catheter, prior to blood sampling, post blood transfusion or post blood sampling sodium chloride 0.9 % injection 3 mL 3 mL, intravenous, As needed, line care, Starting on 12/03/22 at 0846, Prior to and following infusion and between multiple consecutive infusions: sodium chloride 0.9 % injection sodium chloride 0.9 % injection 3 mL 3 mL, intravenous, Every 12 hours scheduled, First dose on 12/03/22 at 0900, Peripheral Intravenous Catheter and Rapid Infusion Catheter, when no infusion to maintain patency Given 12/03/2022 9: 14 AM CDT 3 mL documented in this encounter Active and Recently Administered Medications Times are shown in CDT. Scheduled Medication Order 12/01/2022 12/02/2022 12/03/2022 cefTRIAXone injection 2 g (ROCEPHIN) (COMPLETED) 2 g, intravenous, Once, On 12/03/22 at 0955, For 1 dose, If needed, reconstitute vial per package insert instructions. See IVAG for administration guidelines., Drug Monitoring Program: Pharmacist to adjust medication dosing based on indication and drug clearance factors., Indications: Upper UTI (pyelonephritis) 1014 (Given - Provid er: Josue Fuller RBlancaN.) HYDROcodone-acetaminophen 5-325 mg per tablet 2 tablet (NORCO) (COMPLETED) 2 tablet, oral, Once, On 12/03/22 at 0849, For 1 dose 0851 (Given - Provid er: Josue Fuller RBlancaNBlanca) NaCl 0.9 % bolus 1,000 mL (COMPLETED) 1,000 mL, intravenous, at 1,000 mL/hr, Administer over 1 Hours, Once, On 12/03/22 at 0955, For 1 dose 1015 (New Bag - Prov ider: Josue Fuller R.N.)1025 (Stopped - Provider: Josue Fuller R.N.)1102 (Restarted - Provider: Josue Fuller R.N.)1200 (Stopped - Provider: Lashawn Pradhan R.N.) sodium chloride 0.9 % injection 3 mL 3 mL, intravenous, Every 12 hours scheduled, First dose on 12/03/22 at 0900, Peripheral Intravenous Catheter and Rapid Infusion Catheter, when no infusion to maintain patency 0914 (Given - Provid er: Josue R Alina, R.N.) PRN Medication Order 12/01/2022 12/02/2022 12/03/2022 sodium chloride 0.9 % injection 10 mL 10 mL, intravenous, As needed, line care, Starting on 12/03/22 at 0846, Peripheral Intravenous Catheter and Rapid Infusion Catheter, prior to blood sampling, post blood transfusion or post blood sampling sodium chloride 0.9 % injection 3 mL 3 mL, intravenous, As needed, line care, Starting on 12/03/22 at 0846, Prior to and following infusion and between multiple consecutive infusions: sodium chloride 0.9 % injection documented in this encounter Care Teams Herb Doctor Relationship Specialty Start Date End Date Jessenia Lott APRN, C.N.P. [facility] [place] [phone] PCP - General Family Medicine 05/17/21 documented as of this encounter
--- OUTSIDE RECORDS SUMMARY | 2023-05-17 11:08 | XMS_ITS | Clinical Summary ---
Author Name Unknown Organization [facility] Address [address] [place] [address] Care Team Providers Care Bristle Machine Operator Name Role Phone Jessenia Lott APRN, C.N.P. Primary Care Pro vider Source Comments Patient records contain information from all sites at [facility]. For routine questions regarding patient records, call [phone] during business hours, M-F 8:00 AM - 5:00 PM Central Time. Record requests for emergency care only can be directed to [phone] at any time.[facility] Allergies No known active allergies Medications Medication Sig Dispensed Refills Start Date End Date Status spironolactone (ALDACTONE) 50 mg tablet Take 1 tablet by mouth daily. 100 mg in the AM and 50 mg in the PM 0 05/18/2021 Active 113/iron/lmfol/ome g3s ( 921-[id number]-[id number]-OM EG3 ORAL) Take 1 tablet by mouth daily. 0 12/11/2018 Active dextroamphetamine- amphetamine (ADDERALL) 20 mg tablet Take 20 mg by mouth daily. 0 07/02/2021 Active amoxicillin (AMOXIL) 500 mg capsuleIndications :Otitis Media Acute Serous Right Take 2 capsules (1,000 mg total) by mouth 2 (two) times a day. 40 capsule 0 08/08/2021 Active Additional Information Patient not taking.Reported on 06/02/2022 SUMATRIPTAN SUCCINATE ORAL 50 mg as needed. 0 11/08/2021 Acti ve cyclobenzaprine (FLEXERIL) 5 mg tabletIndications: Pain Back Take 1 tablet (5 mg total) by mouth 3 (three) times a day as needed for muscle spasms for up to 7 days. 20 tablet 0 06/02/2022 Active naproxen (NAPROSYN) 500 mg tabletIndications: Pain Back Take 1 tablet twice daily with food for the next 5 days and then take twice daily as needed for pain. 24 tablet 0 06/02/2022 Active Active Problems Comments Yes No known active problems Immunizations Name Administration Dates Next Due HepB Adult 12/10/2019,10/09/2019,07/22/2019 Influenza (Nasal), Unspecified 02/08/2019 MMR 07/22/2019 Tdap 10/03/2018 JOSE 07/22/2019 influenza vaccine quad (FLUZ ONE/FLUARIX) (6 months and older)(PF) 01/15/2020 Social History Tobacco Use Types Packs/Day Years Used Date Smoking Tobacco: Never Smokeless Tobacco: Never Tobacco Cessation:Counseling Given: Not Answered Alcohol Use Standard Drinks/Week Comments Yes 0 [...] week 12/14/2021 How often do you attend [facility] or scientologist services? 1 to 4 times per year 12/14/2021 Do you belong to any clubs o r organizations such as amish groups, unions, fraternal or athletic groups, or [...] Answer Date Recorded PHQ-2 Score 0 05/18/2021 [facility] of Occupat ional Health - Occupational Stress Questionnaire Answer Date Recorded [...] money to buy more. Never true 12/15/19 22 Within the past 12 months, t he [...] place to sleep or slept in a retirement (including now)? No 12/14/2021 Nutrition Answer Date [...] Sex Assigned at Female 04/30/2021 10:45 AM NEWS PRODUCTION SUPERVISOR Gender Identity Female 04/30/2021 10:45 AM NEWS PRODUCTION SUPERVISOR Sexual Orientation Straight 04/30/2021 10 :45 AM NEWS PRODUCTION SUPERVISOR Last Filed Vital Signs Vital Sign Reading [...] Mass Index 20.74 12/03/2022 8:34 AM CDT Plan of Treatment Health Maintenance Due Date Last Done Comments HIV Screening 1996 Hepatitis C Screening 1996 COVID-19 Vaccine (#1) 01/30/1997 HPV Vaccines (1 - 2-dose series) 2005 Varicella Vaccines (2 of 2 - 13+ 2-dose series) 08/19/2019 07/22/2019 Influenza Vaccine (#1) 2023 0, 02/08/2019 Depression Screening (Annual PHQ-2) 04/24/2023 Creatinine Level (Kidney Function Test) 12/04/2023 12/03/2022, 05/18/2021, 12/30/2018 Potassium Level 12/04/2023 12/03/2022, 05/18/2021, 12/30/2018 Sodium Level 12/04/2023 12/03/2022, 05/18/2021, 12/30/2018 Cervical Cancer Screening 05/28/20242021, 11/01/2019, 12/03/2018 (Performed elsewhere) DTaP,Tdap,and Td Vaccines (2 - Td or Tdap) 10/03/2028 10/03/2018 RSV vaccine - (32-36 weeks) or 60+ years (1 - 1-dose 60+ series) 2056 Hepatitis B Vaccines Completed 12/10/2019, 10/09/2019, 07/22/2019 Chlamydia and Gonorrhea Screening Discontinued 05/28/2021 Pneumococcal vaccine (0-64 years) Aged Out No longer eligible b ased on patient's age to complete this topic Care Teams Bristle Machine Operator Relationship Specialty Start Date End Date Jessenia Lott APRN, C.N.P. [address] [place] [phone] PCP - General Family Medicine 05/17/21
--- OUTSIDE RECORDS SUMMARY | 2023-05-17 11:08 | XMS_ITS | Encounter Summary ---
Author Name Unknown Organization [facility] Address [address] [place] [address] Care Team Providers Care Regional Environmental Manager Name Role Phone Jessenia Lott APRN, C.N.P. Primary Care Pro vider Reason for Visit * Reason Onset Date Comments Flank Pain 12/03/2022 Encounter Details Date Type Department Care Team (Late st Contact Info) Description 12/03/2022 Nurse Triage Department of Family Medicine in [place], [place] [address] [place] [phone] Traci Vargas, R.NBlanca [address] [place] [phone] Flank Pain Social History Tobacco Use Types Packs/Day Years [...] week 12/14/2021 How often do you attend chur or voodoo services? 1 to 4 times per year 12/14/2021 Do you belong to any clubs o r organizations such as sabianism groups, unions, fraternal or athletic groups, or [...] Answer Date Recorded PHQ-2 Score 0 05/18/2021 [facility] [place] of Occupat ional Health - Occupational Stress [...] place to sleep or slept in a long-term (including now)? No 12/14/2021 Nutrition Answer Date [...] Sex Assigned at Female 04/30/2021 10:45 AM RECEPTIONIST NURSE Gender Identity Female 04/30/2021 10:45 AM RECEPTIONIST NURSE Sexual Orientation Straight 04/30/2021 10 :45 AM RECEPTIONIST NURSE documented as of this encounter Miscellaneous Notes * Telephone Encounter - Traci Vargas R.N. - 12/03/2022 6:30 AM CDT Chief Complaint / Reason for Call Patient is a 27 y.o. female calling regarding Flank Pain. Assessment Concern: pain with urination, constant flank pain (5/10) Present for: 3 days, flank pain 12 hours Home cares tried: was seen in (said urine was clear), Tylenol Calling to request: advice The recommended disposition is See a health care provider within 24 hours. She will come to . Encouraged call back with new, worsening, or persistent symptoms. Reason for Disposition Flank pain (Exception: Pain that is only present with movement.) Protocols used: - Back [id number]-GLNPM-BO Care Advice Patient/Caregiver understands and will follow care advice?: Yes, able to teach back PAIN MEDICINE DURING - ACETAMINOPHEN: * For pain relief, you can take acetaminophen (e.g., Tylenol). * It is an jbgn-nlx-ometmvo (OTC) pain drug. You can buy it at the drugstore. * Generally, it is best to avoid medicine use during . However, acetaminophen is considered safe during . * ACETAMINOPHEN - REGULAR STRENGTH TYLENOL: Take 650 mg (two 325 mg pills) by mouth every 4 to 6 hours as needed. Each Regular Strength Tylenol pill has 325 mg of acetaminophen. The most you should take each day is 3,250 mg (10 pills a day). * ACETAMINOPHEN - EXTRA STRENGTH TYLENOL: Take 1,000 mg (two 500 mg pills) every 8 hours as needed.Each Extra Strength Tylenol pill has 500 mg of acetaminophen. The most you should take each day is 3,000 mg (6 pills a day). CALL BACK IF: * Fever occurs * You become worse documented in this encounter Plan of Treatment Not on file documented as of this encounter Visit Diagnoses Not on filedocumented in this encounter Care Teams Regional Environmental Manager Relationship Specialty Start Date End Date Jessenia Lott APRN, C.N.P. [place] [phone] PCP - General Family Medicine 05/17/21 documented as of this encounter
--- OUTSIDE RECORDS SUMMARY | 2023-05-17 11:08 | XMS_ITS ---
Author Name Unknown Organization [facility] Address [address] [place] [address] Care Team Providers Care Motor Grader Operator Name Role Phone Unavailable Unavailable Unavailable Surgery Details Not on file Complications Check Surgery Details section. Procedure Estimated Blood Loss Check Surgery Details section. Procedure Findings Check Surgery Details section. Procedure Specimens Taken Check Surgery Details section.
--- OUTSIDE RECORDS SUMMARY | 2023-05-17 11:08 | XMS_ITS | Encounter Summary ---
Author Name Unknown Organization [facility] Address [address] [place] [address] Care Team Providers Care Stenographer Print Shop Name Role Phone Jessenia Lott APRN, C.N.P. Primary Care Pro vider Reason for Visit * Reason Onset Date Comments Left Without Being Seen 05/12/2023 Encounter Details Date Type Department Care Team (Late st Contact Info) Description 12/03/2022 8:30 AM CDT Office Visit Urgent Care, [facility], in [place], [place] [address] [place] [phone] Procedure And Treatment Not Carried Out Due To Patient Leaving Prior To Being Seen By Health Care Provider (Primary Dx) Social History Tobacco Use Types Packs/Day Years [...] How often do you attend chur or hinduism services? 1 to 4 times per year 12/14/2021 Do you belong to any clubs o r organizations such as confucianist groups, unions, fraternal or athletic groups, or [...] Answer Date Recorded PHQ-2 Score 0 05/18/2021 [facility] of Occupat ional Health - Occupational Stress [...] place to sleep or slept in a half-way (including now)? No 12/14/2021 Nutrition Answer Date [...] Sex Assigned at Female 04/30/2021 10:45 AM INSURANCE SALES ASSOCIATE Gender Identity Female 04/30/2021 10:45 AM INSURANCE SALES ASSOCIATE Sexual Orientation Straight 04/30/2021 10 :45 AM INSURANCE SALES ASSOCIATE documented as of this encounter Progress Notes * Mary Jane Rodrigues, DIRECTOR DESIGN - 12/03/2022 8:30 AM CDT Carmen Madrigal was scheduled and checked in for an appointment but left before being seen. RANCE SALES ASSOCIATE documented in this encounter Plan of Treatment Not on file documented as of this encounter Visit Diagnoses Diagnosis Procedure And Treatment Not Carried Out Due To Patient Leaving Prior To Being Seen By Health Care Provider- Primary documented in this encounter Care Teams Stenographer Print Shop Relationship Specialty Start Date End Date Jessenia Lott APRN, C.N.P. [address] [place] [phone] PCP - General Family Medicine 05/17/21 documented as of this encounter
--- OUTSIDE RECORDS SUMMARY | 2023-05-17 11:08 | XMS_ITS | Referral Summary ---
Author Name Unknown Organization [facility] Address [address] [place] [address] Care Team Providers Care Director Of Cardiac Cath Lab Name Role Phone Jessenia Lott APRN, C.N.P. Primary Care Pro vider Source Comments Patient records contain information from all sites at [facility]. For routine questions regarding patient records, call [phone] during business hours, M-F 8:00 AM - 5:00 PM Central Time. Record requests for emergency care only can be directed to [phone] at any time.[facility] Allergies No known active allergies Medications Medication Sig Dispensed Refills Start Date End Date Status spironolactone (ALDACTONE) 50 mg tablet Take 1 tablet by mouth daily. 100 mg in the AM and 50 mg in the PM 0 05/18/2021 Active 113/iron/lmfol/ome g3s ( [id number]-OM EG3 ORAL) Take 1 tablet by mouth [...] week 12/14/2021 How often do you attend [facility] or holiness services? 1 to 4 times per year 12/14/2021 Do you belong to any clubs o r organizations such as evangelical groups, unions, fraternal or athletic groups, or [...] Answer Date Recorded PHQ-2 Score 0 05/18/2021 [facility] of Occupat ional Health - Occupational Stress [...] place to sleep or slept in a care home (including now)? No 12/14/2021 Nutrition Answer Date [...] Sex Assigned at Female 04/30/2021 10:45 AM VALVE TECHNICIAN Gender Identity Female 04/30/2021 10:45 AM VALVE TECHNICIAN Sexual Orientation Straight 04/30/2021 10 :45 AM VALVE TECHNICIAN Last Filed Vital Signs Vital Sign Reading [...] 12/03/2022 8:34 AM CDT Plan of Treatment Not on file Care Teams Director Of Cardiac Cath Lab Relationship Specialty Start Date End Date Jessenia Lott, DEX, C.N.P. [address] [place] [phone] PCP - General Family Medicine 05/17/21
--- OUTSIDE RECORDS SUMMARY | 2023-05-17 11:09 | XMS_ITS | Encounter Summary ---
Author Name Unknown Organization [facility] Address [address] [place] [address] Care Team Providers Care Digital Technician Name Role Phone Jessenia Lott APRN, C.N.P. Primary Care Pro vider Reason for Visit * Reason Comments Back Pain Shoulder Pain Fell on Monday. Lef t shoulder blade hurts at all times Encounter Details Date Type Department Care Team (Late st Contact Info) Description 06/02/2022 4:00 PM SLIP MIXER Office Visit Urgent Care, [facility], in [place], [place] [address] [place] [address] Miriam Loo APRN, C.N.P., D.N.P. Pain Back (Primary Dx); History Of Falling Discharge Disposition: Home or Self Care Social [...] How often do you attend chur or yazidism services? 1 to 4 times per year 12/14/2021 Do you belong to any clubs o r organizations such as adventist groups, unions, fraternal or athletic groups, or [...] Answer Date Recorded PHQ-2 Score 0 05/18/2021 [facility] of Occupat ional Health - Occupational Stress [...] have received? Associate degree: academic program 05/18/2021 Sex and Gender Information Value Date Recorded Sex Assigned at Female 04/30/2021 10:45 AM SLIP MIXER Gender Identity Female 04/30/2021 10:45 AM SLIP MIXER Sexual Orientation Straight 04/30/2021 10 :45 AM SLIP MIXER documented as of this encounter Last Filed Vital Signs Vital Sign Reading Time Taken Comments Blood Pressure 119/78 06/02/2022 4:06 PM SLIP MIXER Pulse 113 06/02/2022 4:06 PM SLIP MIXER Temperature 36.6 ??C (97.9 ??F) 06/02/2022 4:06 PM CS T Respiratory Rate 18 06/02/2022 4:06 PM SLIP MIXER Oxygen Saturation 98% 06/02/2022 4:06 PM SLIP MIXER Inhaled Oxygen Concentration - - Weight 52.8 kg (116 lb 6.5 oz) 06/02/2022 4:06 P M SLIP MIXER Height 162.2 cm (5' 3.86) 06/02/2022 4:06 PM CS T Body Mass Index 20.07 06/02/2022 4:06 PM SLIP MIXER documented in this encounter Patient Instructions * Attachments The following attachments cannot be sent through Care Everywhere. * Back pain (Lebanese) documented in this encounter Progress Notes * Miriam Loo APRN, C.N.P., D.N.P. - 06/02/2022 4:00 PM CST SUBJECTIVE CHIEF COMPLAINT / REASON FOR VISIT Back Pain and Shoulder Pain (Fell on Monday. Left shoulder blade hurts at all times). HISTORY OF PRESENT ILLNESS Carmen Madrigal is a 26 y.o. female who presents to the urgent care for evaluation of her back and shoulder pain. Reports that she slipped on ice and fell on Monday evening approximately 2 days ago. She reports falling onto her buttock and her back and head. The next day she noticed pain and generalized ache to her back. 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 She reports that the pain is a pinching, sharp and shooting pain. Pain is steady when she is not moving. Home treatments include find mg of Tylenol and 400 mg of ibuprofen 2 times since incident. REVIEW OF SYSTEMS Review of systems per HPI. All others negative at this time. ALLERGIES/CONTRAINDICATIONS No Known Allergies The following portions of the patient's history were reviewed and updated as appropriate: family history, medical history and surgical history. OBJECTIVE VITAL SIGNS BP 119/78 Pulse (!) 113 Temp 36.6 ??C (Temporal) Resp 18 Ht 162.2 cm Wt 52.8 kg SpO2 98% BMI 20.07 kg/m?? PHYSICAL EXAMINATION General: Patient is a pleasant, cooperative 26 y.o. female. She is alert, oriented x3, well-groomed, and reliable historian. She is in no acute distress. Respiratory: Respirations regular and unlabored. Cardiovascular: Tachycardic. Musculoskeletal: No visible abnormalities. No palpable masses. No tenderness directly over cervical, thoracic lumbar spine or any bony step-offs. There is stiffness and pain elicited to paraspinous muscles. No rash. No bruising. Normal seeing a strength and sensation to bilateral upper extremities.Full range of motion of the upper extremities. Negative SLR bilaterally. - Marychuy/Fadir. -Pain reproduced with flex/ext/lateral twisting. In sitting position, bilateral lower extremities strong and equal again resistance including dorsiflexion of bilateral great toes. Sensation intact and equal to bilateral lower extremities. Skin: Color pink, warm, dry, and intact. No rashes, lesions, edema. DIAGNOSTICS No results found for this or any previous visit (from the past 24 hour(s)). No results found. ASSESSMENT / PLAN #1 Pain Back - cyclobenzaprine (FLEXERIL) 5 mg tablet; Take 1 tablet (5 mg total) by mouth 3 (three) times a dayas needed for muscle spasms for up to 7 days., Starting Luzma 06/02/2022, Until Luzma 06/09/2022 at 2359, Normal - naproxen (NAPROSYN) 500 mg tablet; Take 1 tablet twice daily with food for the next 5 days and then take twice daily as needed for pain., Normal #2 History Of Falling No radicular pain noted on exam today. Symmetric sensation and strength bilaterally to the upper and lower extremities. No bruising, or any bony tenderness on exam today. She has good range of motionof the upper and lower extremities. Will treat with a course of NSAID-naproxen that she should take twice daily with meals for the next 5 days and then if needed. S that she may use Tylenol 1000 mg up to 3 times a day as needed for pain or discomfort. We also discussed application of ice for the next day and then followed by ice with heat. She may he also use topical Biofreeze, Lidoderm patch or icy hot. For muscle spasms, may use Flexeril 1 tablet up to 3 times a day as needed. Medication profile and side effects reviewed. Note for work was provided. Continue gentle stretching exercises. Imaging deferred today as no acute bony findings noted on exam. Patient is aware that if she has any persistent pain, or any other concerning symptoms, she should present for evaluation at which time imaging may be considered. Electronically signed by: Miriam Loo APRN, C.N.Seymour, D.N.P. 06/02/22 4:56 PM SLIP MIXER MIXER documented in this encounter Plan of Treatment Not on file documented as of this encounter Visit Diagnoses Diagnosis Pain Back- Primary History Of Falling documented in this encounter Care Teams Digital Technician Relationship Specialty Start Date End Date Jessenia Lott APRN, C.N.P. [address] [place] [address] [place] [address] PCP - General Family Medicine 05/17/21 documented as of this encounter
--- OUTSIDE RECORDS SUMMARY | 2023-05-17 11:09 | XMS_ITS | Encounter Summary ---
Author Name Unknown Organization [facility] Address [address] [place] [id number] Care Team Providers Care Counter Hop Name Role Phone Canelo Tarango PA-C Primary Care Provider [phone] Reason for Visit * Reason Comments UTI Burning with urinati on and pelvic pressure began Monday, vaginal discharge and vaginal odor, test Encounter Details Date Type Department Care Team Description 12/02/2022 10:40 AM CDT Office Visit [place] [address] [facility] [address] [place] [address] Brandon Mathias MD [address] [place], [place] [id number] Dysuria; Vaginal discharge; Glucosuria; Less than 8 weeks gestation of Social History Tobacco Use Types Packs/Day Years Used Date Smoking Tobacco: Never Smokeless Tobacco: Never Alcohol Use Standard Drinks/Week Comments Yes 4 (1 standard drink = 0.6 oz pur e alcohol) occasionally PHQ-2 Answer Date Recorded PHQ-2 Score 0 10/09/2019 Sex and Gender Information Value Date Recorded Sex Assigned at Not on file Gender Identity Not on file Sexual Orientation Not on file documented as of this encounter Last Filed Vital Signs Vital Sign Reading Time Taken Comments Blood Pressure 119/86 12/02/2022 10:23 AM CDT Pulse 99 12/02/2022 10:23 AM CDT Temperature 36.9 ??C (98.5 ??F) 12/02/2022 10:23 AM C DT Respiratory Rate 14 12/02/2022 10:23 AM CDT Oxygen Saturation 100% 12/02/2022 10:23 AM CDT Inhaled Oxygen Concentration - - Weight - - Height - - Body Mass Index - - documented in this encounter Progress Notes * Brandon Mathias MD - 12/02/2022 10:40 AM CDT Nursing Notes: Luz Jorge RN 12/02/22 1022 Signed Carmen Madrigal is a 27 y.o.female presents to the Urgent Care for UTI (Burning with urination and pelvic pressure began Monday, vaginal discharge and vaginal odor, test ) SUBJECTIVE: Carmen Madrigal is a 27 y.o. female here with her . They have been trying to get . 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 She is had some dysuria over last couple of days and increasedurinary frequency and some vaginal discharge with odor. Today she had positive home test.No nausea, vomiting, diarrhea, fever, bleeding. Last menstrual period October 30. Allergies: Patient has no known allergies. Past medical history: has a past medical history of Depression with anxiety (HRC), Exercise-inducedasthma (HRC), Menorrhagia (07/11/2013), and Vaginal hematoma (02/15/2019). Medications: Current Outpatient Medications Medication Sig Dispense Refill amphetamine-dextroamphetamine (ADDERALL) 20 MG tablet Take 1 Tablet (20 mg) by mouth daily. Fexofenadine-Pseudoephedrine (ALYSON-D24) 180-240 MG tablet Take 1 Tablet by mouth daily. 30 Tablet 0 Multiple Vitamins-Minerals (MULTIVITAMIN ADULT OR) Norethindrone, Contraceptive, (MICRONOR) 0.35 MG tablet Take 1 Tablet by mouth daily. (Patient not taking: Reported on 12/02/2022) 3 vitamin-ferrous fumarate-folic acid (PRENATALPLUS) 27-1 MG tablet Take 1 Tablet by mouth daily. (Patient not taking: Reported on 12/02/2022) spironolactone (ALDACTONE) 50 MG tablet Take by mouth. (Patient not taking: Reported on 12/02/2022) No current facility-administered medications for this visit. OBJECTIVE: Vital Signs: BP 119/86 (BP Location: Right Arm, BP Cuff Size: Regular) Pulse 99 Temp36.9 ??C (98.5 ??F) (Oral) Resp 14 SpO2 100% EXAM: She looks well. Nonobese. Normal skin color. No CVA tenderness. Mild suprapubic discomfort topalpation. External genitalia looks normal. Vaginal vault unremarkable. Minimal grayish creamy discharge in the vault. I ordered wet prep and I reviewed to be negative. I ordered urinary test which was positive. I ordered urinalysis which showed 4-7 red cells, no white cells, otherwise unremarkable. There was a bit of glucose so I ordered Accu-Chek which was 101. She ate few hours ago. ASSESSMENT: 1. New . She will make a 1st intake appointment with her internal carver. She will start vitamins. We talked about few precautions associated with her new state of . Should return to a place like hours at any time, as needed. 2. Vaginal discharge by report, some dysuria, urine culture is ordered and pending. The patient has no concern regarding STD. PLAN: See above. The patient was discharged ambulatory and in stable condition. documented in this encounter Nursing Notes * Luz Jorge RN - 12/02/2022 10:40 AM CDT Carmen Madrigal is a 27 y.o.female presents to the Urgent Care for UTI (Burning with urination and pelvic pressure began Monday, vaginal discharge and vaginal odor, test ) documented in this encounter Plan of Treatment Not on file documented as of this encounter Procedures Procedure Name Priority Date/Time Associated Diagnosis Comments GLUCOSE, WHOLE BLOOD POCT Routine 12/02/2022 11:17 AM CDT VAGINAL WET PREP STAT 12/02/2022 10:4 2 AM CDT Vaginal discharge URINE CULTURE Routine 12/02/2022 10:26 AM CDT Dysuria UA WITH MICROSCOPIC STAT 12/02/2022 1 0:26 AM CDT Dysuria TEST (URINE) STAT 12/02/2022 10:26 AM CDT Dysuria documented in this encounter Results * Glucose, Whole Blood POCT (12/02/2022 11:17 AM CDT) Pathologist [facility] Glucose, Whole Blood 101 70 - 180 mg/dL 12/02/2022 11:19 AM CDT [facility] POCT Comment 1 Notified 11:19 AM CDT [facility] Performing Location [facility] 12/02/2022 11:19 AM CDT [facility] Blood 12/02/2022 11:1 7 AM CDT 12/02/2022 11:19 AM CDT Brandon Mathias MD LAB_1 Performing Organization Address [facility]/ZIP Co de Phone Number [facility] [address] [place] [address], [place] [phone] * Vaginal Wet Prep (12/02/2022 10:42 AM CDT) [facility] Fungal Elements Not Detected Not detected 12/02/2022 10:51 AM CDT [facility] Clue Cells Not Detected Not Detected 12/02/2022 10:51 AM CDT [facility] White Blood Cells Not Detected 12/02/2022 10:51 AM CDT [facility] Trich Vaginalis Not Detected Not detected 12/02/2022 10:51 AM CDT [facility] Swab (Source Required) VAGINAL CERVIX / Unknown Non-blood Collection / Unknown 12/02/2022 10:42 AM CDT 12/02/2022 10:47 AM CDT Brandon Mathias MD LAB_1 Performing Organization Address [facility]/ZIP Co de Phone Number [facility] [address] [place] [address], [place] [phone] * (ABNORMAL) Urine Culture (12/02/2022 10:26 AM CDT) Urine Culture Growth(A) 12/06/2022 8:21 AM CDT [facility] Urine Culture 10,000 - 50,000 CFU/mL Escherichia coli 12/06/2022 8:21 AM CDT [facility] Comment:This is an edited re sult. Previous organism was Gram Negative Bacilli on 12/04/2022 at 1144 CDT. Urine URINE SPECIMEN COLLECTION, CLEAN CATCH / Unknown Non-blood Collection / Unknown 12/02/2022 10:26 AM CDT 12/02/2022 10:47 AM CDT Narrative Organism Antibiotic Method Susceptibility Escherichia coli Ampicillin/Sulbactam 2 mcg/mL: Susceptible Escherichia coli Piperacillin/Tazobactam <=2 mcg/mL: Susceptible Escherichia coli Cefazolin <=1 mcg/mL: Susceptible Comment:Predicts res ults for oral agents cefaclor, cefdinir, cefpodoxime, cefprozil, cefuroxime, cephalexin, and loracarbef when used for therapy of uncomplicated UTIs due to E. coli, K. pneumoniae, and Pr. mirabilis. Additionally, in such cases an VENUS of <16 ug/ml is considered susceptible based on a dosage regiment of 2g administered every 12 hours. Escherichia coli Ceftriaxone <=1 mcg/mL: Susceptible Escherichia coli Cefepime <=1 mcg/mL: Susceptible Escherichia coli Ciprofloxacin <=0.25 mcg/mL: Susceptible Escherichia coli Levofloxacin <=0.5 mcg/mL: Susceptible Escherichia coli Ertapenem <=0.25 mcg/mL: Susceptible Escherichia coli Meropenem <=0.5 mcg/mL: Susceptible Escherichia coli Tobramycin <=2 mcg/mL: Susceptible Escherichia coli Trimethoprim/Sulfamethoxazole <=0.5 mcg/mL: Susceptible Escherichia coli Nitrofurantoin <=16 mcg/mL: Susceptible Escherichia coli Cefoxitin <=4 mcg/mL: Susceptible Escherichia coli Gentamicin <=2 mcg/mL: Susceptible Escherichia coli Cefotetan Escherichia coli Cefuroxime <=4 mcg/mL: Susceptible Escherichia coli Minocycline Brandon Mathias MD LAB_[address] [address], [facility] [phone] * (ABNORMAL) Test (Urine) - Collect in Lab (12/02/2022 10:26 AM CDT) HCG, Urine Positive(A ) Negative 12/02/2022 11:00 AM T [facility] Urine URINE SPECIMEN COLLECTION, CLEAN CATCH / Unknown Non-blood Collection / Unknown 12/02/2022 10:26 AM CDT 12/02/2022 10:47 AM CDT Brandon Mathias MD LAB_1 [facility] [address] [place] [address], [place] [phone] * (ABNORMAL) UA with Microscopic: Clean Catch (12/02/2022 10:26 AM CDT) Pathologist [facility] Urine Color Yellow 12/02/2022 10:56 AM [facility] Urine Clarity Clear Clear 12/02/2022 10:56 AM [facility] Specific [place], Urine 1.015 1.005 - 1.030 12/02/2022 10:56 AM [facility] PH Urine 8.5(A) 5.0 - 8.0 12/02/2022 10:56 AM [facility] Protein, Urine Qual (mg/dL) Trace Neg/Trace 12/02/2022 10:56 AM [facility] Glucose Urine Qual (mg/dL) 100(A) Negative 12/02/2022 10:56 AM [facility] Ketones, Urine (mg/dL) Negative Negative 12/02/2022 10:56 AM [facility] Urobilinogen, Urine (EU/dL) 1.0 <2.0 12/02/2022 10:56 AM [facility] Bilirubin Urine Negative Negative 12/02/2022 10:56 AM [facility] Blood, Urine Trace Neg/Trace 12/02/2022 10:56 AM [facility] Nitrite Urine Positive(A) Negative 12/02/2022 10:56 AM [facility] Leukocyte Est. Negative Negative 12/02/2022 10:56 AM CDT [facility] Red Blood Cells 4-7(A) 0 - 3 /HPF 12/02/2022 10:56 AM CDT [facility] White Blood Cells 0-5 0 - 5 /HPF 12/02/2022 10:56 AM CDT [facility] Bacteria Occasional(A) None Seen /HPF 12/02/2022 10:56 AM CDT [facility] Squamous Epithelial Cells Occasional None Seen, Occasional, Few /HPF 12/02/2022 10:56 AM T [facility] Crystals, Amorphous Present(A) None Seen /HPF 12/02/2022 10:56 AM CDT [facility] Urine Source Clean Catch 12/02/2022 10:56 AM T [facility] Urine URINE SPECIMEN COLLECTION, CLEAN CATCH / Unknown Non-blood Collection / Unknown 12/02/2022 10:26 AM CDT 12/02/2022 10:47 AM CDT Eliecer VASQUEZ LAB_1 [facility] [address] [place] [address], [facility] [phone] documented in this encounter Visit Diagnoses Diagnosis Dysuria Vaginal discharge Leukorrhea, not specified as infective Glucosuria Glycosuria Less than 8 weeks gestation of state, incidental documented in this encounter Care Teams Counter Hop Relationship Specialty Start Date End Date Canelo Tarango PA-C [address] [place] [address] PCP - General Physician Pump And Blower Operator 07/17/19 documented as of this encounter
--- OUTSIDE RECORDS SUMMARY | 2023-05-17 11:09 | XMS_ITS | Encounter Summary ---
Author Name Unknown Organization [facility] Address [address] [place] [address] Care Team Providers Care Target Aircraft Controller Name Role Phone Jessenia Lott APRN, C.N.P. Primary Care Pro vider Encounter Details Date Type Department Care Team (Latest Contact Info) Description 10/27/2022 2:50 PM CDT - 10/27/2022 11:59 PM CDT Hospital Encounter Department of Laboratory Medicine in [place] [address] [place] [phone] Sadie Mullen M.D. 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 1 to 4 times per year [...] Answer Date Recorded PHQ-2 Score 0 05/18/2021 [facility] of Occupat ional Health - Occupational Stress [...] Sex Assigned at Female 04/30/2021 10:45 AM ORTHODONTIST VICE PRESIDENT Gender Identity Female 04/30/2021 10:45 AM ORTHODONTIST VICE PRESIDENT Sexual Orientation Straight 04/30/2021 10 :45 AM ORTHODONTIST VICE PRESIDENT documented as of this encounter Medications at Time of Discharge Medication Sig Dispensed Refills Start Date End Date amoxicillin (AMOXIL) 500 mg capsuleIndications:Otit is Media Acute Serous Right Take 2 capsules (1,000 mg total) by mouth 2 (two) times a day. 40 capsule 0 08/08/2021 dextroamphetamine-amphe tamine (ADDERALL) 20 mg tablet Take 20 mg by mouth daily. 0 07/02/2021 naproxen (NAPROSYN) 500 mg tabletIndications:Pain Back Take 1 tablet twice daily with food for the next 5 days and then take twice daily as needed for pain. 24 tablet 0 06/02/2022 113/iron/lmfol/omeg3s ( [id number] ORAL) Take 1 tablet by mouth daily. 0 12/11/2018 spironolactone (ALDACTONE) 50 mg tablet Take 1 tablet by mouth daily. 100 mg in the AM and 50 mg in the PM 0 05/18/2021 SUMATRIPTAN SUCCINATE ORAL 50 mg as needed. 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 Follicular phase: <=0.89 ng/mL Ovulation: <=12 ng/mL Luteal phase: 1.8-24 ng/ml Post-menopausal: <0.20 ng/mL 1st Trimester: 11-44 ng/mL 2nd Trimester: 25-83 ng/mL 3rd Trimester: 58-214 ng/mL Blood (Blood, Venous) 10/27/2022 3:42 PM CDT 10/29/2022 9:14 AM CDT Sadie Mullen M.D. 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 [address] [place] [address] PCP - General Family Medicine 05/17/21 documented as of this encounter
--- OUTSIDE RECORDS SUMMARY | 2023-05-17 11:09 | XMS_ITS | Encounter Summary ---
Author Name Unknown Organization [facility] Address [address] [place] [address] Care Team Providers Care Airfreight Loading Supervisor Name Role Phone Jessenia Lott APRN, C.N.P. Primary Care Pro vider Reason for Visit * Reason Onset Date Comments Shoulder Pain 06/02/2022 Triage 06/02/2022 Encounter Details Date Type Department Care Team (Late st Contact Info) Description 06/02/2022 Nurse Triage Department of Family Medicine in [place], [place] [address] [place] [address] Minna Jacobs, R.NBlanca [address] [place] [place] [phone] Shoulder Pain; Triage Social History Tobacco Use Types Packs/Day Years [...] 12/14/2021 How often do you attend chur ch or nondenominational services? 1 to 4 times per year 12/14/2021 Do you belong to any clubs o r organizations such as christianity groups, unions, fraternal or athletic groups, or [...] PHQ-2 Score 0 05/18/2021 [facility] of Occupat ional Health - Occupational [...] place to sleep or slept in a chcf (including now)? No 12/14/2021 Nutrition Answer Date [...] Sex Assigned at Female 04/30/2021 10:45 AM MAINTENANCE MECHANIC TELEPHONE Gender Identity Female 04/30/2021 10:45 AM MAINTENANCE MECHANIC TELEPHONE Sexual Orientation Straight 04/30/2021 10 :45 AM MAINTENANCE MECHANIC TELEPHONE documented as of this encounter Miscellaneous Notes * Telephone Encounter - Minna Jacobs R.N. - 06/02/2022 2:45 PM CST Chief Complaint / Reason for Call Patient is a 26 y.o. female calling regarding Shoulder Pain and Triage. Assessment Concern: Patient calling with concerns of shoulder pain. Reports left shoulder pain. States she fell on the ice two days ago and started having shoulder pain today. Denies any radiating chest, neck or jaw pain. No difficulty breathing or shortness of breath noted. States she has numbness and tingling into her hand and fingers on the left side. Describes the pain as constant, sharp, shooting, and pinching. Home cares tried: Tylenol, Ibuprofen, Ice Calling to request: Advice The recommended disposition is See a health care provider within 24 hours. Reason for Disposition Numbness (i.e., loss of sensation) in hand or fingers Protocols used: Shoulder Orio-[id number]-FF Care Advice Patient/Caregiver understands and will follow care advice?: Yes, able to teach back SEE PCP WITHIN 24 HOURS: * IF OFFICE WILL BE OPEN: You need to be examined within the next 24 hours. Call your doctor (or CROSS ENTERPRISE INTEGRATOR/PA) when the office opens and make an appointment. * IF OFFICE WILL BE CLOSED: You need to be seen within the next 24 hours. A clinic or an urgent care center is often a good source of care if your doctor's office is closed or you can't get an appointment. PAIN MEDICINES: * For pain relief, you can take either acetaminophen, ibuprofen, or naproxen. * They are mltb-dxt-mpcunwq (OTC) pain drugs. You can buy them at the drugstore. * ACETAMINOPHEN - REGULAR STRENGTH TYLENOL: Take [...] is 3,000 mg (6 pills a day). * IBUPROFEN (E.G., MOTRIN, ADVIL): Take 400 mg (two 200 mg pills) by mouth every 6 hours. The most you should take each day is 1,200 mg (six 200 mg pills), unless your doctor has told you to take more. * NAPROXEN (E.G., ALEVE): Take 220 mg (one 220 mg pill) by mouth every 8 to 12 hours as needed. Youmay take 440 mg (two 220 mg pills) for your first dose. The most you should take each day is 660 mg(three 220 mg pills a day), unless your doctor has told you to take more. CALL BACK IF: * You become worse Patient was warm transferred to, Nupur, Patient Appointment Hat Steamer at the clinic for further assistance. If clinic appointment is not available in the next 24 hours, caller is advised to be seen in urgent care. TENANCE MECHANIC TELEPHONE documented in this encounter Plan of Treatment Not on file documented as of this encounter Visit Diagnoses Not on filedocumented in this encounter Care Teams Airfreight Loading Supervisor Relationship Specialty Start Date End Date Jessenia Lott APRN, C.N.P. [address] [place] [address] PCP - General Family Medicine 05/17/21 documented as of this encounter
--- OUTSIDE RECORDS SUMMARY | 2023-05-17 11:09 | XMS_ITS | Encounter Summary ---
Author Name Unknown Organization [facility] Address [address] [place] [address] Care Team Providers Care Patient Support Representative Name Role Phone Jessenia Lott APRN, C.N.P. Primary Care Pro vider Encounter Details Date Type Department Care Team (Late st Contact Info) Description 09/28/2022 Orders Only [facility] Jessenia Lott APRN, C.N.P. [address] [place] [phone] Monitoring For Therapeutic Drug Therapy Social History Tobacco Use Types Packs/Day Years [...] week 12/14/2021 How often do you attend [facility] or pentecostalism services? 1 to 4 times per year 12/14/2021 Do you belong to any clubs o r organizations such as mosque groups, unions, fraternal or athletic groups, or [...] Answer Date Recorded PHQ-2 Score 0 05/18/2021 [facility] of Occupat ional Health - Occupational Stress [...] place to sleep or slept in a mcc (including now)? No 12/14/2021 Nutrition Answer Date [...] Sex Assigned at Female 04/30/2021 10:45 AM HARPOON ENGAGEMENT PLANNING OPERATOR Gender Identity Female 04/30/2021 10:45 AM HARPOON ENGAGEMENT PLANNING OPERATOR Sexual Orientation Straight 04/30/2021 10 :45 AM HARPOON ENGAGEMENT PLANNING OPERATOR documented as of this encounter Plan of Treatment Not on file documented as of this encounter Visit Diagnoses Diagnosis Monitoring For Therapeutic Drug Therapy documented in this encounter Care Teams Patient Support Representative Relationship Specialty Start Date End Date Jessenia Lott APRN, [place] [phone] PCP - General Family Medicine 05/17/21 documented as of this encounter
--- OUTSIDE RECORDS SUMMARY | 2023-05-17 11:09 | XMS_ITS | Clinical Summary ---
Author Name Unknown Organization [facility] Address [address], [place] [address] Care Team Providers Care Assistant Broker Name Role Phone Canelo Tarango PA-C Primary Care Provider [phone]- [phone] Source Comments You are receiving this document as you are listed as the primary care provider,follow-up provider, or the patient has been referred to you for consultation.This is in compliance with the Medicare andSt. [facility] Hospitalcaid EHR Incentive Program,which states Providers who transition their patient to another setting of careor provider of care or refers their patient to another provider of care shouldprovide summary care record for each transition of care or referral. [facility] Allergies No known active allergies Medications Medication Sig Dispensed Refills Start Date End Date Status vitamin-ferrous fumarate-folic acid (PRENATALPLUS) 27-1 MG tablet Take 1 Tablet by mouth daily. 0 Active Norethindrone, Contraceptive, (MICRONOR) 0.35 MG tablet Take 1 Tablet by mouth daily. 3 01/16/2019 Active Multiple Vitamins-Minerals (MULTIVITAMIN ADULT OR) 0 Active Fexofenadine-Pseudoep hedrine (ALYSON-D24) 180-240 MG tabletIndications:Sea shen allergies Take 1 Tablet by mouth daily. 30 Tablet 0 01/15/2020 Active amphetamine-dextroamp hetamine (ADDERALL) 20 MG tablet Take 1 Tablet (20 mg) by mouth daily. 0 11/02/2022 Active spironolactone (ALDACTONE) 50 MG tablet Take by mouth. 0 11/10/2022 Active Active Problems Problem Noted Date Diagnosed Date Atypical squamous cells of u ndetermined significance (ASCUS) on Papanicolaou smear of cervix 06/12/2018 Overview: 06/12/18 ASCUS pap @ 22 yo. Plan 1 year pap 11/01/19 Appt Resolved Problems Problem Noted Date Diagnosed Date Resolved Date Vaginal hematoma 02/15/2019 10/09/2019 Overview: Added automatically from request for surgery [id number] Menorrhagia 07/11/2013 10/09/2019 Immunizations Name Administration Dates Next Due HepB Adult (Engerix-B, 20+ y rs, 3 dose series) 12/10/2019,10/09/2019,07/22/2019 Influenza (LAIV), Unspecified 02/08/2019 Influenza IIV4 (Quadrivalent) 0.5mL (56302) 12/24 MMR 07/22/2019 Tdap 10/03/2018 Varicella 07/22/2019 Family History Medical History Relation Name Comments Back pain problems Father Cardiovascular Disease Father Depression Father Depression Mother Relation Name Status Comments Father Alive Mother Brother 1 Alive Brother 2 Alive Daughter Arelis Alive Sister 1 Alive Sister 2 Alive Sister 3 Alive Social History Tobacco Use Types Packs/Day Years Used Date Smoking Tobacco: Never Smokeless Tobacco: Never Alcohol Use Standard Drinks/Week Comments Yes 4 (1 standard drink = 0.6 oz pur e alcohol) occasionally PHQ-2 Answer Date Recorded PHQ-2 Score 0 10/09/2019 Sex and Gender Information Value Date Recorded Sex Assigned at Not on file Gender Identity Not on file Sexual Orientation Not on file Last Filed Vital Signs Vital Sign Reading Time Taken Comments Blood Pressure 119/86 12/02/2022 10:23 AM CDT Pulse 99 12/02/2022 10:23 AM CDT Temperature 36.9 ??C (98.5 ??F) 12/02/2022 10:23 AM C DT Respiratory Rate 14 12/02/2022 10:23 AM CDT Oxygen Saturation 100% 12/02/2022 10:23 AM CDT Inhaled Oxygen Concentration - - Weight 55.1 kg (121 lb 6.4 oz) 10/09/2019 2:30 P M CDT Height 158.8 cm (5' 2.5) 10/09/2019 2:30 PM CDT Body Mass Index 21.85 10/09/2019 2:30 PM CDT Plan of Treatment Health Maintenance Due Date Last Done Comments COVID-19 Vaccine (#1) 01/30/1997 HPV Vaccine (1 - 2-dose series) 08/01/2007 MMR (2 of 2 - Risk 2-dose series) 08/19/2019 07/22/2019 Varicella (2 of 2 - 13+ 2-dose series) 08/19/2019 07/22/2019 Adult Preventive Visit 10/08/2021 10/09/2019 Cervical Cancer Screening 10/31/20222019 (Completed) Influenza (#1) 2022 01/15/2020, 02/08/2019 DTaP/Tdap/Td (2 - Tdap) 10/03/2028 10/03/2018 Zoster/Shingles (1 of 2) 2046 Chlamydia Discontinued 10/09/2019, 03/23/2018 HIV Screening (Preventive Services) Completed 10/09/2019 Hep C Screening (Preventive Services) Completed 10/09/2019 HepB Completed 12/10/2019, 10/09/2019, 07/22/2019 HepA Aged Out No longer eligi ble based on patient's age to complete this topic Hib Aged Out No longer eligi ble based on patient's age to complete this topic IPV (Polio) Aged Out No longer eligi ble based on patient's age to complete this topic MCV4 Aged Out No longer eligi ble based on patient's age to complete this topic Pneumococcal Aged Out No longer eligi ble based on patient's age to complete this topic Care Teams Assistant Broker Relationship Specialty Start Date End Date Canelo Tarango, PAAlanisC [address] [place] [address] PCP - General Physician Engineering Intern 07/17/19
== END 2023-05-16 10:08 | disposition home or self-care (01) ==
LOC: NFLDREF 05-17 11:02
PROVIDERS: PCP Family Medicine; Referring Provider Family Medicine; Visit Provider Obstetrics & Gynecology
DX: Z34.83 Encounter for supervision of other normal pregnancy, third trimester (principal)
CPT/HCPCS: 86592; 86850

== ENCOUNTER 2023-05-23 16:40 | Outpatient (CLI) | payer BC, SELFPAY ==
[2023-05-23 16:20] VITALS: BP 114/73; PULSE 106; RESP 20; TEMP 37; O2SAT 97; BMI 28.9
--- OUTSIDE RECORDS SUMMARY | 2023-05-23 16:42 | XMS_ITS | Clinical Summary ---
Author Name Unknown Organization [facility] Address [address] [place] [address] Care Team Providers Care Ladle Operator Name Role Phone Canelo Tarango PA-C Primary Care Provider [phone]- [phone] Source Comments You are receiving this document as you are listed as the primary care provider,follow-up provider, or the patient has been referred to you for consultation.This is in compliance with the Medicare and[facility] Hospitalca[facility] EHR Incentive Program,which states Providers who transition their patient to another setting of careor provider of care or refers their patient to another provider of care shouldprovide summary care record for each transition of care or referral. [facility] Allergies No known active allergies Medications Medication [...] Overview: Added automatically from request for surgery [id number] Menorrhagia 07/11/2013 10/09/2019 Immunizations Name Administration Dates Next Due HepB Adult (Engerix-B, 20+ y rs, 3 dose series) 12/10/2019,10/09/2019,07/22/2019 Influenza (LAIV), Unspecified 02/08/2019 Influenza IIV4 (Quadrivalent) 0.5mL (23195) 12/24 MMR 07/22/2019 Tdap 10/03/2018 Varicella 07/22/2019 [...] age to complete this topic Care Teams Ladle Operator Relationship Specialty Start Date End Date Canelo Tarango, PAAlanisC [address] [place] [address] PCP - General Physician Scanning Clerk 07/17/19
--- OUTSIDE RECORDS SUMMARY | 2023-05-23 16:43 | XMS_ITS | Encounter Summary ---
Author Name Unknown Organization [facility] Address [address] [place] [place] [address] Care Team Providers Care Die Equipment Operator Name Role Phone Canelo Tarango PA-C Primary Care Provider [phone]- [phone] Reason for Visit * Reason Comments UTI Burning with urinati on and pelvic pressure began Monday, vaginal discharge and vaginal odor, test Encounter Details Date Type Department Care Team Description 12/02/2022 10:40 AM CDT Office Visit [facility] [facility] [address] [place] [address] Brandon Mathias MD [address] [place], [place] [id number] Dysuria; Vaginal discharge; Glucosuria; Less than 8 [...] trying to get . 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 She is had some dysuria over last [...] make a 1st intake appointment with her truck washer. She will start vitamins. We talked about [...] Blood POCT (12/02/2022 11:17 AM CDT) Pathologist [facility] Glucose, Whole Blood 101 70 - 180 mg/dL 12/02/2022 11:19 AM CDT [facility] POCT Comment 1 Notified 11:19 AM CDT [facility] Performing Location [facility] 12/02/2022 11:19 AM CDT [facility] Blood 12/02/2022 11:1 7 AM CDT 12/02/2022 11:19 AM CDT Brandon Mathias MD LAB_1 Performing Organization Address [facility]/ZIP Co de Phone Number [facility] [address] [place] [address], [place] [phone] * Vaginal Wet Prep (12/02/2022 10:42 AM CDT) [facility] Fungal Elements Not Detected Not detected 12/02/2022 10:51 AM CDT [facility] Clue Cells Not Detected Not Detected 12/02/2022 10:51 AM CDT [facility] White Blood Cells Not Detected 12/02/2022 10:51 AM CDT [facility] Trich Vaginalis Not Detected Not detected 12/02/2022 10:51 AM CDT [facility] Swab (Source Required) VAGINAL CERVIX / Unknown Non-blood Collection / Unknown 12/02/2022 10:42 AM CDT 12/02/2022 10:47 AM CDT Brandon Mathias MD LAB_1 Performing Organization Address [facility]/ZIP Co de Phone Number [facility] [address] [place] [address], [place] [phone] * (ABNORMAL) Urine Culture (12/02/2022 10:26 AM CDT) Urine Culture Growth(A) 12/06/2022 8:21 AM CDT [facility] Urine Culture 10,000 - 50,000 CFU/mL Escherichia coli 12/06/2022 8:21 AM CDT [facility] Comment:This is an edited re sult. Previous [...] Escherichia coli Minocycline Brandon Mathias MD LAB_[address] [address], [facility] [phone] * (ABNORMAL) Test (Urine) - Collect in Lab (12/02/2022 10:26 AM CDT) HCG, Urine Positive(A ) Negative 12/02/2022 11:00 AM T [facility] Urine URINE SPECIMEN COLLECTION, CLEAN CATCH / Unknown Non-blood Collection / Unknown 12/02/2022 10:26 AM CDT 12/02/2022 10:47 AM CDT Brandon Mathias MD LAB_1 [facility] [address] [place] [address], [place] [phone] * (ABNORMAL) UA with Microscopic: Clean Catch (12/02/2022 10:26 AM CDT) Pathologist [facility] Urine Color Yellow 12/02/2022 10:56 AM [facility] Urine Clarity Clear Clear 12/02/2022 10:56 AM [facility] Specific [place], Urine 1.015 1.005 - 1.030 12/02/2022 10:56 AM [facility] PH Urine 8.5(A) 5.0 - 8.0 12/02/2022 10:56 AM [facility] Protein, Urine Qual (mg/dL) Trace Neg/Trace 12/02/2022 10:56 AM [facility] Glucose Urine Qual (mg/dL) 100(A) Negative 12/02/2022 10:56 AM [facility] Ketones, Urine (mg/dL) Negative Negative 12/02/2022 10:56 AM [facility] Urobilinogen, Urine (EU/dL) 1.0 <2.0 12/02/2022 10:56 AM [facility] Bilirubin Urine Negative Negative 12/02/2022 10:56 AM [facility] Blood, Urine Trace Neg/Trace 12/02/2022 10:56 AM [facility] Nitrite Urine Positive(A) Negative 12/02/2022 10:56 AM [facility] Leukocyte Est. Negative Negative 12/02/2022 10:56 AM CDT [facility] Red Blood Cells 4-7(A) 0 - 3 /HPF 12/02/2022 10:56 AM CDT [facility] White Blood Cells 0-5 0 - 5 /HPF 12/02/2022 10:56 AM CDT [facility] Bacteria Occasional(A) None Seen /HPF 12/02/2022 10:56 AM CDT [facility] Squamous Epithelial Cells Occasional None Seen, Occasional, Few /HPF 12/02/2022 10:56 AM T [facility] Crystals, Amorphous Present(A) None Seen /HPF 12/02/2022 10:56 AM CDT [facility] Urine Source Clean Catch 12/02/2022 10:56 AM T [facility] Urine URINE SPECIMEN COLLECTION, CLEAN CATCH / Unknown Non-blood Collection / Unknown 12/02/2022 10:26 AM CDT 12/02/2022 10:47 AM CDT Eliecer VASQUEZ LAB_1 [facility] [address] [place] [address], [facility] [phone] documented in this encounter Visit Diagnoses Diagnosis Dysuria Vaginal discharge Leukorrhea, not specified as infective Glucosuria Glycosuria Less than 8 weeks gestation of state, incidental documented in this encounter Care Teams Die Equipment Operator Relationship Specialty Start Date End Date Canelo Tarango PA-C [address] [place] [address] PCP - General Physician Physical Science Professor 07/17/19 documented as of this encounter
--- OUTSIDE RECORDS SUMMARY | 2023-05-23 16:43 | XMS_ITS | Referral Summary ---
Author Name Unknown Organization [facility] Address [address] [place] [address] Care Team Providers Care Hat And Cap Parts Cutter Hand Name Role Phone Jessenia Lott APRN, C.N.P. Primary Care Pro vider Source Comments Patient records contain information from all sites at [facility]. For routine questions regarding patient records, call [phone] during business hours, M-F 8:00 AM - 5:00 PM Central Time. Record requests for emergency care only can be directed to [phone] at any time.[facility] Allergies No known active allergies Medications Medication Sig Dispensed Refills Start Date End Date Status spironolactone (ALDACTONE) 50 mg tablet Take 1 tablet by mouth daily. 100 mg in the AM and 50 mg in the PM 0 05/18/2021 Active 113/iron/lmfol/ome g3s ( 313-QESG-KTXUXL-OM EG3 ORAL) Take 1 tablet by mouth [...] week 12/14/2021 [facility] or [facility]-day services? 1 to 4 times per year 12/14/2021 Do you belong to any clubs o r organizations such as judaism groups, unions, fraternal or athletic groups, or [...] Answer Date Recorded PHQ-2 Score 0 05/18/2021 [facility] of Occupat ional Health - Occupational Stress [...] place to sleep or slept in a senior care (including now)? No 12/14/2021 Nutrition Answer Date [...] Sex Assigned at Female 04/30/2021 10:45 AM COMMERCIAL HVAC SERVICE TECHNICIAN Gender Identity Female 04/30/2021 10:45 AM COMMERCIAL HVAC SERVICE TECHNICIAN Sexual Orientation Straight 04/30/2021 10 :45 AM COMMERCIAL HVAC SERVICE TECHNICIAN Last Filed Vital Signs Vital Sign [...] of Treatment Not on file Care Teams Hat And Cap Parts Cutter Hand Relationship Specialty Start Date End Date Jessenia Lott, DEX, C.N.P. [address] [place] [phone] PCP - General Family Medicine 05/17/21
--- OUTSIDE RECORDS SUMMARY | 2023-05-23 16:43 | XMS_ITS | Encounter Summary ---
Author Name Unknown Organization [facility] Address [address] [place] [address] Care Team Providers Care Casing Running Machine Tender Name Role Phone Jessenia Lott APRN, C.N.P. Primary Care Pro vider Reason for Visit * Reason Onset Date Comments Flank Pain 12/03/2022 Encounter Details Date Type Department Care Team (Late st Contact Info) Description 12/03/2022 Nurse Triage Department of Family Medicine in [place], [place] [address] [place] [phone] Traci Vargas, R.NBlanca [address] [place] [phone] Flank Pain Social History Tobacco Use Types [...] How often do you attend chur or sabianist services? 1 to 4 times per year 12/14/2021 Do you belong to any clubs o r organizations such as latter-day groups, unions, fraternal or athletic groups, or [...] Answer Date Recorded PHQ-2 Score 0 05/18/2021 [facility] of Occupat ional Health - Occupational Stress [...] place to sleep or slept in a custodial (including now)? No 12/14/2021 Nutrition Answer Date [...] Sex Assigned at Female 04/30/2021 10:45 AM REAL ESTATE ADMINISTRATIVE ASSISTANT Gender Identity Female 04/30/2021 10:45 AM REAL ESTATE ADMINISTRATIVE ASSISTANT Sexual Orientation Straight 04/30/2021 10 :45 AM REAL ESTATE ADMINISTRATIVE ASSISTANT documented as of this encounter Miscellaneous Notes [...] present with movement.) Protocols used: - Back Yblc-FAUJO-PW Care Advice Patient/Caregiver understands and will follow care advice?: Yes, able to teach back PAIN MEDICINE DURING - ACETAMINOPHEN: * For pain relief, you can take acetaminophen (e.g., Tylenol). * It is an tiiz-ipd-qvdcvnd (OTC) pain drug. You can buy it [...] on filedocumented in this encounter Care Teams Casing Running Machine Tender Relationship Specialty Start Date End Date Jessenia Lott APRN, C.N.P. [facility] [place] [address] PCP - General Family Medicine 05/17/21 documented as of this encounter
--- OUTSIDE RECORDS SUMMARY | 2023-05-23 16:43 | XMS_ITS | Encounter Summary ---
Author Name Unknown Organization [facility] Address [address] [place] [address] Care Team Providers Care Senior Chemical Process Engineer Name Role Phone Jessenia Lott APRN, C.N.P. Primary Care Pro vider Reason for Visit * Reason Onset Date Comments Left Without Being Seen 05/12/2023 Encounter Details Date Type Department Care Team (Late st Contact Info) Description 12/03/2022 8:30 AM CDT Office Visit Urgent Care[facility], in [place], [place] [address] [place] [address] Procedure And Treatment Not Carried Out Due [...] How often do you attend chur or denominational services? 1 to 4 times per year 12/14/2021 Do you belong to any clubs o r organizations such as mormon groups, unions, fraternal or athletic groups, or [...] Answer Date Recorded PHQ-2 Score 0 05/18/2021 [facility] of Occupat ional Health - Occupational [...] Sex Assigned at Female 04/30/2021 10:45 AM PRODUCTION CELL LEADER Gender Identity Female 04/30/2021 10:45 AM PRODUCTION CELL LEADER Sexual Orientation Straight 04/30/2021 10 :45 AM PRODUCTION CELL LEADER documented as of this encounter Progress Notes * Mary Jane Rodrigues, ANDROID SOFTWARE ENGINEER - 12/03/2022 8:30 AM CDT Carmen Madrigal was scheduled and checked in for an appointment but left before being seen. UCTION CELL LEADER documented in this encounter Plan of Treatment Not on file documented as of this encounter Visit Diagnoses Diagnosis Procedure And Treatment Not Carried Out Due To Patient Leaving Prior To Being Seen By Health Care Provider- Primary documented in this encounter Care Teams Senior Chemical Process Engineer Relationship Specialty Start Date End Date Jessenia Lott APRN, C.N.P. [address] [place] [phone] PCP - General Family Medicine 05/17/21 documented as of this encounter
--- OUTSIDE RECORDS SUMMARY | 2023-05-23 16:43 | XMS_ITS | Encounter Summary ---
Author Name Unknown Organization [facility] Address [address] [place] [address] Care Team Providers Care Manager Commission Name Role Phone Jessenia Lott APRN, C.N.P. Primary Care Pro vider Encounter Details Date Type Department Care Team (Latest Contact Info) Description 10/27/2022 2:50 PM CDT - 10/27/2022 11:59 PM CDT Hospital Encounter Department of Laboratory Medicine in [place] [address] [place] [phone] Sadie Mullen M.D. 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 1 to 4 times per year 12/14/2021 Do you belong to any clubs o r organizations such as religion groups, unions, fraternal or athletic groups, or [...] Answer Date Recorded PHQ-2 Score 0 05/18/2021 [facility] Occupat ional Health - Occupational Stress [...] place to sleep or slept in a prison (including now)? No 12/14/2021 Nutrition Answer Date [...] Sex Assigned at Female 04/30/2021 10:45 AM HALF BACKER Gender Identity Female 04/30/2021 10:45 AM HALF BACKER Sexual Orientation Straight 04/30/2021 10 :45 AM HALF BACKER documented as of this encounter Medications at [...] pain. 24 tablet 0 06/02/2022 113/iron/lmfol/omeg3s ( 334-SSIF-FACVBZ-OMEG3 ORAL) Take 1 tablet by mouth daily. [...] CDT Sadie Mullen M.D. 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 [address] [place] [phone] PCP - General Family Medicine 05/17/21 documented as of this encounter
--- OUTSIDE RECORDS SUMMARY | 2023-05-23 16:43 | XMS_ITS | Clinical Summary ---
Author Name Unknown Organization [facility] Address [address] [place] [address] Care Team Providers Care Roasterman Name Role Phone Jessenia Lott APRN, C.N.P. Primary Care Pro vider Source Comments Patient records contain information from all sites at [facility]. For routine questions regarding patient records, call [phone] during business hours, M-F 8:00 AM - 5:00 PM Central Time. Record requests for emergency care only can be directed to [phone] at any time.[facility] Allergies No known active allergies Medications Medication Sig Dispensed Refills Start Date End Date Status spironolactone (ALDACTONE) 50 mg tablet Take 1 tablet by mouth daily. 100 mg in the AM and 50 mg in the PM 0 05/18/2021 Active 113/iron/lmfol/ome g3s ( 836-YNDY-JNXZHH-OM EG3 ORAL) Take 1 tablet by mouth [...] week 12/14/2021 How often do you attend [facility] or hindu services? 1 to 4 times per year 12/14/2021 Do you belong to any clubs o r organizations such as yarsanism groups, unions, fraternal or athletic groups, or [...] Sex Assigned at Female 04/30/2021 10:45 AM WEAVER NARROW FABRICS Gender Identity Female 04/30/2021 10:45 AM WEAVER NARROW FABRICS Sexual Orientation Straight 04/30/2021 10 :45 AM WEAVER NARROW FABRICS Last Filed Vital Signs Vital Sign Reading [...] age to complete this topic Care Teams Roasterman Relationship Specialty Start Date End Date Jessenia Lott APRN, C.N.P. [address] [place] [phone] PCP - General Family Medicine 05/17/21
--- OUTSIDE RECORDS SUMMARY | 2023-05-23 16:43 | XMS_ITS | Encounter Summary ---
Author Name Unknown Organization [facility] Address [address] [place] [address] Care Team Providers Care Aquatic Biologist Name Role Phone Jessenia Lott APRN, C.N.P. Primary Care Pro vider Reason for Visit * Reason Comments Back Pain Shoulder Pain Fell on Monday. Lef t shoulder blade hurts at all times Encounter Details Date Type Department Care Team (Late st Contact Info) Description 06/02/2022 4:00 PM PIN SETTER Office Visit Urgent Care, [facility], in [place], [place] [address] [place] [phone] Miriam Loo APRN, C.N.P., D.N.P. Pain Back [...] How often do you attend chur or yazidi services? 1 to 4 times per year 12/14/2021 Do you belong to any clubs o r organizations such as quaker groups, unions, fraternal or athletic groups, or [...] Answer Date Recorded PHQ-2 Score 0 05/18/2021 [facility] [place] of Occupat ional Health - Occupational Stress [...] place to sleep or slept in a group home (including now)? No 12/14/2021 Nutrition Answer [...] Sex Assigned at Female 04/30/2021 10:45 AM PIN SETTER Gender Identity Female 04/30/2021 10:45 AM PIN SETTER Sexual Orientation Straight 04/30/2021 10 :45 AM PIN SETTER documented as of this encounter Last Filed Vital Signs Vital Sign Reading Time Taken Comments Blood Pressure 119/78 06/02/2022 4:06 PM PIN SETTER Pulse 113 06/02/2022 4:06 PM PIN SETTER Temperature 36.6 ??C (97.9 ??F) 06/02/2022 4:06 PM CS T Respiratory Rate 18 06/02/2022 4:06 PM PIN SETTER Oxygen Saturation 98% 06/02/2022 4:06 PM PIN SETTER Inhaled Oxygen Concentration - - Weight 52.8 kg (116 lb 6.5 oz) 06/02/2022 4:06 P M PIN SETTER Height 162.2 cm (5' 3.86) 06/02/2022 4:06 PM CS T Body Mass Index 20.07 06/02/2022 4:06 PM PIN SETTER documented in this encounter Patient Instructions * Attachments The following attachments cannot be sent through Care Everywhere. 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 06/02/22 4:56 PM PIN SETTER SETTER documented in this encounter Plan of Treatment Not on file documented as of this encounter Visit Diagnoses Diagnosis Pain Back- Primary History Of Falling documented in this encounter Care Teams Aquatic Biologist Relationship Specialty Start Date End Date Jessenia Lott APRN, C.N.P. [address] [place] [address] [place] [phone] PCP - General Family Medicine 05/17/21 documented as of this encounter
--- OUTSIDE RECORDS SUMMARY | 2023-05-23 16:43 | XMS_ITS | Encounter Summary ---
Author Name Unknown Organization [facility] Address [address] [place] [address] Care Team Providers Care Broadcast News Producer Name Role Phone Jessenia Lott APRN C.N.P. Primary Care Pro vider Reason for Referral * Medication Prior Authorization - Closed Specialty Diagnoses / Procedures Referred By Shabnam zapata Referred To Contact Chai Saab D.O. [facility] [place] [address] Referral ID Status Reason Start Date Expiration Date Visits Re quested Visits Authorized [id number] Closed 1 1 Reason for Visit * Reason Comments Flank Pain Pt states pain/urgen cy/frequency that started on monday. Back pain and pelvic pain started on Monday afternoon. Encounter Details Date Type Department Care Team (Late st Contact Info) Description 12/03/2022 8:32 AM CDT - 12/03/2022 12:20 PM CDT Emergency [facility] [address] [place] [phone] Chai Saab D.O. [address] [place] [phone] Pyelonephritis Acute (Primary Dx); Cystitis Hemorrhagic Discharge [...] week 12/14/2021 How often do you attend [facility] or yarsanism services? 1 to 4 times per year 12/14/2021 Do you belong to any clubs o r organizations such as baptist groups, unions, fraternal or athletic groups, or [...] Answer Date Recorded PHQ-2 Score 0 05/18/2021 [facility] - Occupational Stress Questionnaire Answer Date Recorded [...] place to sleep or slept in a longterm (including now)? No 12/14/2021 Nutrition Answer Date [...] Sex Assigned at Female 04/30/2021 10:45 AM RESTAURANT CREW PERSON Gender Identity Female 04/30/2021 10:45 AM RESTAURANT CREW PERSON Sexual Orientation Straight 04/30/2021 10 :45 AM RESTAURANT CREW PERSON documented as of this encounter Last Filed [...] sent through Care Everywhere. * Pyelonephritis During (Amharic) documented in this encounter Medications at Time [...] pain. 24 tablet 0 06/02/2022 113/iron/lmfol/omeg3s ( 918-PCHE-RJRPUA-OMEG3 ORAL) Take 1 tablet by mouth daily. [...] QI(U) Negative Bilirubin Negative pH 7.0 Specific [place] 1.020 Urobilinogen 0.2 White Blood Cells 51-100 (*) Red Blood Cells 51-100 (*) Dysmorphic Red Blood Cells <=25 Squamous Cells Occ-3 Bacteria Present (*) HUMAN CHORIONIC GONADOTROPIN (HCG), RADHA, - Abnormal HCG, Quantitative, , P 398 (*) BACTERIAL CULTURE, AEROBIC + SUSC, URINE BACTERIA / AUBRIE CULTURE, BLOOD Narrative: Specimen Information: Specimen ID: [id number] Specimen Source: Blood, Peripheral IV Specimen Comment: Specimen Source Site: Blood Specimen Collection Start Date: 12/03/2022 10:02 AM Specimen Received Date: 12/03/2022 10:18 AM Specimen ID: [id number] Specimen Source: Blood, Peripheral IV Specimen Comment: Specimen Source Site: Blood Specimen Collection Start Date: 12/03/2022 10:02 AM Specimen Received Date: 12/03/2022 10:18 AM Specimen ID: [id number] Specimen Source: Blood, Peripheral IV Specimen Comment: Specimen Source Site: Blood Specimen Collection Start Date: 12/03/2022 10:02 AM Specimen Received Date: 12/03/2022 10:18 AM BACTERIA / AUBRIE CULTURE, BLOOD Narrative: Specimen Information: Specimen ID: [id number] Specimen Source: Blood, Peripheral Draw Specimen Comment: Specimen Source Site: Blood Specimen Collection Start Date: 12/03/2022 10:14 AM Specimen Received Date: 12/03/2022 10:20 AM Specimen ID: [id number] Specimen Source: Blood, Peripheral Draw Specimen Comment: Specimen Source Site: Blood Specimen Collection Start Date: 12/03/2022 10:14 AM Specimen Received Date: 12/03/2022 10:20 AM Specimen ID: [id number] Specimen Source: Blood, Peripheral Draw Specimen Comment: [...] Will begin treating patient's symptoms with p.o. [place] as discussions of pain control in first [...] Saab D.O. LAB BLOOD NON ADD-O N [facility] [address] [place] [address], [place] [address] [place] [address] * Bacteria / Aubrie Culture, Blood #2 (12/03/2022 10:14 AM CDT) Bacteria/Alise da Culture, Blood No growth after 5 day/s of incubation. 12/08/2022 11:03 AM CDT NPRG Blood (Blood, Peripheral Draw) 12/03/2022 10:14 AM CDT 12/03/2022 10:20 AM CDT Comment:Specimen Source Site : Blood Chai Saab D.O. LAB MICROBIOLOGY - GENERAL ORDERABLES Performing Organization Address City/[facility]/ZIP Co de Phone Number [facility] [address] [place] [address], [place] [address] [place] [address] * Bacteria / Aubrie Culture, Blood #1 (12/03/2022 10:02 AM CDT) Bacteria/Alise da Culture, Blood No growth after 5 day/s of incubation. 12/08/2022 11:03 AM CDT NPRG Blood (Blood, Peripheral IV) 12/03/2022 10:02 AM CDT 12/03/2022 10:18 AM CDT Comment:Specimen Source Site : Blood Chai Saab D.O. LAB MICROBIOLOGY - GENERAL ORDERABLES Performing Organization Address City/[facility]/ZIP Co de Phone Number [facility] [address] [place] [address], [place] [address] [place] [address] * (ABNORMAL) Bacterial Culture, Aerobic + Susceptibility, Urine (12/03/2022 9:09 AM CDT) [facility] Urine Culture ESCHERICHIA COLI >100,000 cfu/mL (A) [...] Saab D.O. LAB MICROBIOLOGY - GENERAL ORDERABLES [facility] [address] [place] [address], [facility] MKTO [facility] in [place] [address] [place] [address] * (ABNORMAL) Urinalysis with Microscopic: Urine, Midstream (12/03/2022 9:09 AM CDT) Source Urine, Urine, Midstream 12/03/2022 9:09 AM CDT NPRG Clarity Cloudy(A) Clear 12/03/2022 9:12 AM CDT NPRG Color Yellow 12/03/2022 9:12 AM CDT NPRG Comment: ----REFERENCE VALUE---- Colorless Yellow Katherine Blood Large(A) Negative 12/03/2022 9:12 AM CDT [...] 8.0 12/03/2022 9:12 AM CDT NPRG Specific [place] 1.020 1.001 - 1.035 12/03/2022 9:12 AM [...] LAB URINE ORDERABLE S Performing Organization Address City/[facility]/ZIP Co de Phone Number [facility] [address] [place] [address], [facility] NPRG [place] [address] [place] [address] * ABO/Rh, RBC (12/03/2022 8:56 AM CDT) ABO Group A 12/03/2022 10: 13 AM CDT NPRG Rh Type POS 12/03/2022 10: 13 AM CDT NPR[facility] Blood (Blood, Venous) 12/03/2022 8:56 AM CDT 12/03/2022 9:00 AM CDT Chai Saab D.O. LAB BLOOD BANK TEST ORDERABLES Performing Organization Address [facility] Co de Phone Number [facility] [address] [place] [address], [facility] NPRG [address] [address] * (ABNORMAL) hCG (Human Chorionic Gonadotropin), Quantitative, (12/03/2022 8:56 AM CDT) HCG, Quantitative, , P 398(H) <5 IU/L 12/03/2022 9:22 AM CDT NPRG Blood (Blood, Venous) 12/03/2022 8:56 AM CDT 12/03/2022 9:00 AM CDT Chai Saab D.O. LAB BLOOD ADD-ON Performing Organization Address City/[facility]/ZIP Co de Phone Number [facility] [address] [place] [address], [place] NPRG [facility] [address] [place] [address] * (ABNORMAL) Comprehensive Metabolic Panel (12/03/2022 8:56 [...] CDT Chai Saab D.O. LAB BLOOD ADD-ON [facility] [address] [place] [address], [facility] NPRG [facility] [address] [place] [address] * (ABNORMAL) CBC with Differential, Blood (12/03/2022 [...] CDT Chai Saab D.O. LAB BLOOD ADD-ON [facility] [address] [place] [address], [place] NPRG [facility] [address] [place] [address] documented in this encounter Visit Diagnoses Diagnosis [...] injection documented in this encounter Care Teams Broadcast News Producer Relationship Specialty Start Date End Date Jessenia Lott APRN, C.N.P. [place] [phone] PCP - General Family Medicine 05/17/21 documented as of this encounter
--- OUTSIDE RECORDS SUMMARY | 2023-05-23 16:43 | XMS_ITS | Encounter Summary ---
Author Name Unknown Organization [facility] Address [address] [place] [address] Care Team Providers Care Manager Power Name Role Phone Jessenia Lott APRN, C.N.P. Primary Care Pro vider Reason for Visit * Reason Onset Date Comments Shoulder Pain 06/02/2022 Triage 06/02/2022 Encounter Details Date Type Department Care Team (Late st Contact Info) Description 06/02/2022 Nurse Triage Department of Family Medicine in [place], [place] [address] [place] [address] Minna Jacobs, R.NBlanca [address] [place] [phone] Shoulder Pain; Triage Social History Tobacco Use [...] often do you attend chur ch or congregational services? 1 to 4 times per year 12/14/2021 Do you belong to any clubs o r organizations such as hinduism groups, unions, fraternal or athletic groups, or [...] Answer Date Recorded PHQ-2 Score 0 05/18/2021 [facility] Occupat ional Health - Occupational [...] Sex Assigned at Female 04/30/2021 10:45 AM CUSTOMER ORDER CLERK Gender Identity Female 04/30/2021 10:45 AM CUSTOMER ORDER CLERK Sexual Orientation Straight 04/30/2021 10 :45 AM CUSTOMER ORDER CLERK documented as of this encounter Miscellaneous Notes [...] in hand or fingers Protocols used: Shoulder [id number] Care Advice Patient/Caregiver understands and will follow care advice?: Yes, able to teach back SEE PCP WITHIN 24 HOURS: * IF OFFICE WILL BE OPEN: You need to be examined within the next 24 hours. Call your doctor (or TRAVELING FREIGHT AGENT/PA) when the office opens and make an [...] acetaminophen, ibuprofen, or naproxen. * They are hexl-pxv-mdrnvgp (OTC) pain drugs. You can buy them [...] was warm transferred to, Nupur, Patient Appointment Decal Applier at the clinic for further assistance. If clinic appointment is not available in the next 24 hours, caller is advised to be seen in urgent care. OMER ORDER CLERK documented in this encounter Plan of Treatment Not on file documented as of this encounter Visit Diagnoses Not on filedocumented in this encounter Care Teams Manager Power Relationship Specialty Start Date End Date Jessenia Lott APRN, C.N.P. [address] [place] [address] PCP - General Family Medicine 05/17/21 documented as of this encounter
--- OUTSIDE RECORDS SUMMARY | 2023-05-23 16:43 | XMS_ITS ---
Author Name Unknown Organization [facility] Address [address] [place] [address] Care Team Providers Care Blower Blast Furnace Name Role Phone Unavailable Unavailable Unavailable Surgery Details Not on file Complications Check Surgery Details section. Procedure Estimated Blood Loss Check Surgery Details section. Procedure Findings Check Surgery Details section. Procedure Specimens Taken Check Surgery Details section.
--- OUTSIDE RECORDS SUMMARY | 2023-05-23 16:43 | XMS_ITS | Encounter Summary ---
Author Name Unknown Organization [facility] Address [address] [place] [address] Care Team Providers Care Mixing Technician Name Role Phone Jessenia Lott APRN, C.N.P. Primary Care Pro vider Encounter Details Date Type Department Care Team (Late st Contact Info) Description 09/28/2022 [facility]N, C.N.P. [address] [place] [phone] Monitoring For Therapeutic Drug Therapy Social History [...] week 12/14/2021 How often do you attend [facility] or yazidi services? 1 to 4 times per year 12/14/2021 Do you belong to any clubs o r organizations such as orthodoxy groups, unions, fraternal or athletic groups, or [...] Answer Date Recorded PHQ-2 Score 0 05/18/2021 [facility] of Occupat ional Health - Occupational [...] place to sleep or slept in a penitentiary (including now)? No 12/14/2021 Nutrition Answer Date [...] Sex Assigned at Female 04/30/2021 10:45 AM EARTH MOVING TECHNICIAN Gender Identity Female 04/30/2021 10:45 AM EARTH MOVING TECHNICIAN Sexual Orientation Straight 04/30/2021 10 :45 AM EARTH MOVING TECHNICIAN documented as of this encounter Plan of Treatment Not on file documented as of this encounter Visit Diagnoses Diagnosis Monitoring For Therapeutic Drug Therapy documented in this encounter Care Teams Mixing Technician Relationship Specialty Start Date End Date Jessenia Lott APRN, C.N.P. [address] [facility] [place] [phone] PCP - General Family Medicine 05/17/21 documented as of this encounter
[2023-05-23 16:52] VITALS: TEMP 37.4
[2023-05-23 16:53] VITALS: BP 113/61; PULSE 95; PULSE 96; O2SAT 96
[2023-05-23 17:26] LABS: Basophils Absolute Auto 0.01 K/uL (0.00-0.30); Basophils Percent Auto 0.1 % (0.0-3.0); Eosinophils Absolute Auto 0.04 K/uL (0.00-0.50); Eosinophils Percent Auto 0.5 % (0.0-7.0); Hematocrit 30.8 % (33.0-51.0); Hemoglobin* 10.2 gm/dL (12.0-16.0); Immature Granulocytes Abs Auto 0.09 K/uL (0.00-0.30); Immature Granulocytes Pct Auto 1.1 %; Lymphocytes Percent Auto 15.7 % (20-44); Mean Corpuscular HGB Conc 33 gm/dL (32-36); Mean Corpuscular Hemoglobin 32 pg (26-34); Mean Corpuscular Volume 96 fL (80-100); Monocytes Percent Auto 7.7 % (0.0-11.0); Neutrophils Percent Auto 74.9 % (42.0-72.0); Platelet Count* 182 K/uL (140-440); RDW Coefficient of Variation % 12.2 % (11.5-15.5); White Blood Count* 8.35 K/uL (4.50-11.00)
[2023-05-23 17:27] LABS: Appearance Urine Slightly Cloudy (Clear); Bilirubin Urine Negative (Negative); Blood Urine Negative (Negative); Color Urine Yellow (Yellow); Glucose Urine Negative (Negative); Ketones Urine Negative (Negative); Leukocyte Esterase Urine Trace (Negative); Nitrite Urine Negative (Negative); Protein Urine Negative (Negative); Specific Gravity Urine 1.015 (1.000-1.030); Urobilinogen Urine 0.2 (0.2-1.0); pH Urine 7.5 (5.0-8.5)
[2023-05-23 17:28] LABS: Slide Review Reflex No
[2023-05-23] MEDS: METOCLOPRAMIDE 10 MG TABLET PO (17:37)
--- NOTE | 2023-05-23 17:59 | P.OBO_ITS ---
OB Outpatient HPI History of Present Illness Date Seen: 05/23/23 History of Present Illness: 27 year old at 29 2/7 weeks gestation presents to OB triage with several complaints. She has had intermittent tachycardia since early . She has been evaluated by Dr. Chavez, and found only to have intermittent sinus tachycardia. She is currently on labetalol 100 mg BID for prevention of tachycardia. She started this medication in February. Initially, this helped to control palpitations. However, in recent history, she has had more episodes. Today, at work, she felt fast heart rate, difficulty breathing, felt hot, and as though she were about to pass out. She felt this way several times during her shift. When this did occur, symptoms resolved with her sitting down. She reports eating normal meals today. She has also had a headache since last night, awakening her from sleep. This is accompanied by occasional floaters in her vision. She took 1 g of Tylenol earlier today, but BARBOUR did not resolve. It is currently 08/01. She has a history of preeclampsia in her first , and was worried that these symptoms were related to recurrence. She has been normotensive throughout this . Of note, she has anemia, diagnosed at 28 weeks, and has started iron supplementation. OB Problem List: Mirza, daughter: Arelis 1. Hx of preeclampsia Poor records of this in previous . Requested records and admission note 12/29. Was not on magnesium Recommended Baby ASA from 12weeks gestation. Baseline labs ordered at NOB AST elevated at NOB. Will repeat at next visit. Order placed: WNL 2. Hx of vaginal hematoma requiring surgical intervention at 6 weeks 3. Hx of hemorrhage Received 2 units RBC 4. Family hx of MTHFR deficiency 5. Hx of Chorio? Not clear in delivery note 6. Hx of Infertility Conceived on letrozole 7. ADHD Takes Adderall 20 mg, stopped in early but considering restarting as needed 8. Pyelonephritis in early , treated at [place] [facility] 10. Breast augmentation in fall of 2021 11. Palpitations, symptomatic. EKG normal sinus rhythm. Holter monitor: Intermittent sinus tachycardia. Patient was seen by internal medicine, Dr. Martin. Was started on labetalol 100 mg daily. 03/23/23: Labetalol is working well, but having symptoms in the late afternoon/evening- recommend increasing labetalol 100 mg 2 twice daily, message also sent to Dr. Martin 05/16/23: Symptoms continue to be well controlled on labetolol. 12. Anemia at 28 weeks - started iron supplement - Order repeat Hgb for 32 week visit Contractions: No Meds Home Medications and Allergies Home Medications Medication Instructions Recorded Confirmed Type prenat.vits,beba,see-evxc-qkqwp 1 tab PO QDAY 11/08/21 05/23/23 History sumatriptan succinate 50 mg tablet 50 mg PO .As Needed as needed PRN 11/08/21 05/23/23 History cetirizine 10 mg capsule (Zyrtec) 10 mg PO QDAY PRN 12/29/22 05/23/23 History fluticasone propionate 50 1 spray intranasal QDAY 12/29/22 05/23/23 History mcg/actuation nasal spray,suspension (Flonase Allergy Relief) benzoyl peroxide 10 % topical gel 1 applic topical QDAY 01/24/23 05/23/23 History (Acne Treatment (benzoyl peroxide)) aspirin 81 mg chewable tablet 81 mg PO QDAY 02/22/23 05/23/23 History acetaminophen 325 mg capsule 325 mg PO ONCE PRN 05/16/23 05/23/23 History (Tylenol) Allergies Allergy/AdvReac Type Severity Reaction Status Date / Time No Known Drug Allergies Allergy Verified 05/16/23 08:21 [facility] Medical History History of hemorrhage, currently ?O09.299 - Supervision of with other poor reproductive or obstetric history, unspecified trimester (ICD-10) History of pre-eclampsia ?Z87.59 - Personal history of other complications of , childbirth and the puerperium (ICD-10) Abnormal Pap smear of cervix ?R87.619 - Unspecified abnormal cytological findings in specimens from cervix uteri (ICD-10) Surgical History History of breast augmentation ?Z98.82 - Breast implant status (ICD-10) S/P evacuation of hematoma ?Z98.890 - Other specified postprocedural states (ICD-10) Family History Mother Domestic violence Heart disease Alcohol dependence Depression Father Heart disease High blood pressure Alcohol dependence Neurologic disorder Maternal Grandmother High blood pressure Maternal Grandfather Cerebrovascular disease Alcohol dependence Paternal Grandmother Cerebrovascular disease Heart disease Alcohol dependence Alzheimers disease Arthritis Depression Asthma Thyroid disease Paternal Grandfather Coronary artery disease High blood pressure Cerebrovascular disease High cholesterol Asthma Sister Alcohol dependence Drug dependence Brother Alcohol dependence Drug dependence Other Cardiovascular disease Clotting disorder Social History Narrative: SOCIAL Education: Bachelors 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, [employer]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) Partner: Mirza, Package Designer Lives with: Tio Blue Pets: 2 dogs, 1 cat, 1 fish Abuse: Denies past/present Special Diet: Denies Ok with a blood transfusion: yes Culture or taoist beliefs: denies RISK FACTORS Exercise Times/wk: Chasing a child Depression/Anxiety: no history Seat Belt Use: Routinely Smoking: Denies past/present Alcohol/day: Denies while ; Social 1-2x per week Caffeine: 1 cup per day Drug Use: Denies past/present Chicken Pox: Vaccinated MRSA: Denies What is your current living situation?: I presently have a place to live Problems where you live: no known problems In the past 12 months, utilities in danger of being shut off: no In past 12 months, lack of transportation kept you from medical appts, meetings, work, or getting things needed for daily living: no In the past 12 mos, have been you worried that your food would run out before you had money to buy more?: never true In the past 12 mos, the food you bought just didn't last and you didn't have money to buy more?: never true Smoking Status: Never smoker How often does anyone, including family, friends and others, physically hurt you : never How often does anyone, including family, friends and others, insult or talk down to you: never How often does anyone, including family, friends and others, threaten you with harm: never How often does anyone, including family, friends and others, scream or curse at you: never Little interest or pleasure in doing things: not at all Feeling down, depressed, or hopeless: not at all History History 2 Elective abortions Para 1 Spontaneous abortions Hx # Term Pregnancies Ectopic pregnancies Hx # Pregnancies Multiple births Number of Living Children 1 Past Pregnancies Del. Date GA/Weeks Outcome Route wt Inf Gender Labor Lgth Anesthesia Location Provider Compli 01/10/19 39 live - full term 6 lb 8 oz Female >12 hours epidural [place] [facility] Delivery Date: 01/10/19 Last Updated by: Jo Ann Carey, MARLENEM PROM, PPH, Vaginal hematoma, Pre-e, manual removal of placenta due to partial cord avulsion, Chorio? OB - H&P: Exam Physical Exam Vital signs: Temp Pulse Resp BP Pulse Ox O2 Del Method 99.3 F 95 20 113/61 96 Room Air 05/23/23 16:52 05/23/23 16:53 05/23/23 16:20 05/23/23 16:53 05/23/23 16:53 05/23/23 16:20 Narrative: Gen - NAD, pleasant, talkative, accompanied by her daughter Heart - RRR, no M/R/G Lungs - CTAB Abd - soft, NT, gravid LE - no edema or erythema tracing: Baseline 145 / accelerations to 160 / no decelerations / moderate variability Labs Labs Laboratory Tests 05/23/23 05/23/23 Range/Units 17:20 17:18 WBC 8.35 (4.50-11.00) K/uL RBC 3.20 L (4.00-5.20) m/uL Hgb 10.2 L (12.0-16.0) gm/dL Hct 30.8 L (33.0-51.0) % MCV 96 (80-100) fL MCH 32 (26-34) pg MCHC 33 (32-36) gm/dL RDW Coeff of Jose 12.2 (11.5-15.5) % Plt Count 182 (140-440) K/uL Neut % (Auto) 74.9 H (42.0-72.0) % Lymph % (Auto) 15.7 L (20-44) % Ida % (Auto) 7.7 (0.0-11.0) % Eos % (Auto) 0.5 (0.0-7.0) % Baso % (Auto) 0.1 (0.0-3.0) % Neut # (Auto) 6.30 (1.7-7.0) K/uL Lymph # (Auto) 1.30 (0.90-2.90) K/uL Ida # (Auto) 0.60 (0.00-0.90) K/UL Eos # (Auto) 0.04 (0.00-0.50) K/uL Baso # (Auto) 0.01 (0.00-0.30) K/uL Abs Immat Gran (auto) 0.09 (0.00-0.30) K/uL Imm/Tot Granulo (auto) 1.1 % Urine Color Yellow (Yellow) Urine Appearance Slightly Cloudy A (Clear) Urine pH 7.5 (5.0-8.5) Ur Specific [place] 1.015 (1.000-1.030) Urine Protein Negative (Negative) Urine Glucose (UA) Negative (Negative) Urine Ketones Negative (Negative) Urine Blood Negative (Negative) Urine Nitrite Negative (Negative) Urine Bilirubin Negative (Negative) Urine Urobilinogen 0.2 (0.2-1.0) Ur Leukocyte Esterase Trace A (Negative) Urine RBC Pending Urine WBC Pending Ur Squamous Epith Cells Pending Urine Bacteria Pending Assessment and Plan Assessment and plan (1) Palpitation: Status: Acute Assessment and Plan: Despite treatment with labetalol. Presently with normal HR and BP. TSH normal. Mild anemia continues. Given her presyncope today, and her completely normal pressure at this time, I suspect labetalol may be causing her side effects without avoiding palpitations. I recommended she speak to Dr. Chavez regarding continued management. Continue supplemental iron. (2) : Status: Acute Assessment and Plan: Reassuring status. (3) Migraine: Status: Acute Assessment and Plan: Suspect migraine with aura, suboptimally responsive to Tylenol, but not severe at this time. Improved after treatment with Reglan 10 mg.
[2023-05-23 18:16] LABS: RBC Urine 0-2 (0-2); Squamous Epithelial Cell Urine Few (None-Few); WBC Urine 0-2 (0-5)
[2023-05-23 18:50] LABS: Anion Gap 5 mEq/L (7-15); Blood Urea Nitrogen* 9 mg/dL (5-24); Carbon Dioxide* 26 mmol/L (20-32); Chloride* 105 mmol/L (96-114); Creatinine* 0.5 mg/dL (0.5-1.5); Est. Creatinine Clearance* 141.04; Estimated Glomerular Filt Rate 133 ml/min; Glucose* 77 mg/dL (60-115); Potassium* 3.5 mmol/L (3.6-5.1); Sodium* 136 mmol/L (135-149)
[2023-05-23 19:00] LABS: Thyroid Stimulating Hormone* 0.638 uIU/mL (0.270-4.20)
--- NOTE | 2023-05-23 19:28 | PC.OBNST ---
NST Note NST Note Start: 05/23/23 16:55 Freq: ONCE Status: Active Protocol: Document 05/23/23 19:24 [facility] (Rec: 05/23/23 19:26 [facility] [id number]) NST Note 2 Para (# of births) 1 EDC 08/06/23 Gestational Age In Weeks & Days 29 Weeks & 2 Days High Risk Factors High Blood Pressure - Preexisting Patient Presented with Complaint(s) of Headache,Other Reactive Yes Appropriate for Gestational Age Yes WESLEY Navarro Date 05/23/23 Reactive Yes Appropriate for Gestational Age Yes WESLEY Muniz Date 05/23/23 OB NST charge Yes Complete NST Note via Write Note Yes The provider's electronic signature indicates the NST is reactive/appropriate for gestational age. *Note to provider: If an addendum is required, open the patient's chart and click on the note under the Nurse/Allied Health tab.
== END 2023-05-23 19:36 | disposition home or self-care (01) ==
LOC: OB OUT 16:41 → OB 16:43
PROVIDERS: PCP Family Medicine; Visit Provider Obstetrics & Gynecology
DX: O10.913 Unspecified pre-existing hypertension complicating pregnancy, third trimester (principal); G43.909 Migraine, unspecified, not intractable, without status migrainosus; Z3A.29 29 weeks gestation of pregnancy
CPT/HCPCS: 36415; 59025; 80048; 81003; 81015; 84443; 85025; 87086; G0463; A9270

== ENCOUNTER 2023-07-12 09:00 | Outpatient (RCR) | payer BC, SELFPAY | END 2023-11-09 23:59 | disposition home or self-care (01) | PROVIDERS: PCP Family Medicine; Visit Provider Obstetrics & Gynecology | DX: O26.893 Other specified pregnancy related conditions, third trimester (principal); R10.2 Pelvic and perineal pain; Z51.89 Encounter for other specified aftercare | CPT/HCPCS: 97110; 97140; 97162; 97535 ==

== ENCOUNTER 2023-07-12 10:31 | Outpatient (CLI) | payer BC, SELFPAY ==
[2023-07-13 10:57] LABS: Strep B DNA Probe Negative (Negative)
[2023-07-13 11:09] LABS: Strep B Susceptibility Needed? No
== END 2023-07-12 10:32 | disposition home or self-care (01) ==
LOC: NFLDREF 10:31
PROVIDERS: PCP Family Medicine; Visit Provider Obstetrics & Gynecology
DX: Z34.93 Encounter for supervision of normal pregnancy, unspecified, third trimester (principal)
CPT/HCPCS: 87081; 87653

== ENCOUNTER 2023-07-12 11:20 | Outpatient (CLI) | payer BC, SELFPAY ==
--- NOTE | 2023-07-12 12:00 | US_ITS ---
Patient: JENNIFER OLSEN Facility:?[facility] Patient ID:?[id number] Site Patient ID:?[id number]. Site :?[id number] Study:?US-OB Pelvis BPP/OB F/U-07/12/2023 12:34:22 PM Ordering Physician:?Jacey Robbins Final Report: INDICATION: Supervision of , patient c/o possible amniotic leak. TECHNIQUE: Real time johnson scale imaging of the fetus was performed. COMPARISON: 03/23/2023 FINDINGS: Sonographic imaging demonstrates a single living intrauterine gestation. Fetus demonstrates a regular cardiac rate of 133 beats per minute. Fetus has a vertex position. The placenta lies posteriorly. Amniotic fluid volume appears normal and there is a single deepest pocket of 6.2 cm. The estimated weight is 3090gm which lies at the 69th %. On the prior OB ultrasound dated 03/23/2023 the estimated weight was at the 39th percentile. BPD 91st percentile. HC 43rd percentile. AC 86th percentile. FL is 23rd percentile. The fetus was active and demonstrated normal breathing movements. There was normal flexion and extension of the trunk and extremities. IMPRESSION: Normal biophysical profile score 8/8. Sonographic gestational age 37 weeks 0 days and a sonographic due date 08/02/2023. Good correlation with dates. Normal interval growth. Estimated weight 69th percentile. Abdominal circumference 86th percentile. Dictated by Surinder De Guzman MD @ 07/12/2023 12:41:48 PM Signed by:?Surinder De Guzman MD @07/12/2023 12:41:48 PM (Electronic Signature)
== END 2023-07-12 11:21 | disposition home or self-care (01) ==
LOC: US 11:20
PROVIDERS: PCP Family Medicine; Visit Provider Obstetrics & Gynecology
DX: Z34.93 Encounter for supervision of normal pregnancy, unspecified, third trimester (principal); Z3A.37 37 weeks gestation of pregnancy
CPT/HCPCS: 76816; 76819

== ENCOUNTER 2023-07-26 16:10 | Inpatient (IN) | payer BC, SELFPAY ==
[2023-07-26] VITALS (71 sets, daily range): BP systolic 126–130; BP diastolic 78–83; PULSE 81–116; RESP 16; TEMP 36.9; O2SAT 92–100
--- NOTE | 2023-07-26 17:12 | PM.OBHPLI ---
OB - H&P: HPI Labor/Induction History of Present Illness Time Seen by Provider: 17:12 Date Seen: 07/26/23 Chief Complaint: The patient is a 27 year old 2 para 1 at 38 weeks gestation by LMP, who presents for induction of labor in the setting of symptomatic tachycardia. is complicated by symptomatic tachycardia status post cardiology evaluation on metoprolol, history of preeclampsia, history of hemorrhage, gestational anemia, asthma and ADHD. Patient is feeling well today, no acute concerns. She endorses ongoing episodes of symptomatic tachycardia, notes the frequency of these may be somewhat improved with metoprolol. She is status post Cardiology consult with echocardiogram, where no structural anomalies were visualized. She denies any chest pain, shortness of breath, dizziness or lightheadedness at present. Endorses intermittent contractions that are nonpainful. No vaginal bleeding or leaking of fluid. Endorses active movement. Chief complaint: Medical induction for severe heart palpitations Narrative: Carmen Zamora is a 27 year old female Specific Issues/Plans Mirza, daughter: Arelis H&P by NDP on 07/21/2023 1. Palpitations, symptomatic. EKG normal sinus rhythm. Holter monitor: Intermittent sinus tachycardia. Patient was seen by internal medicine, Dr. Martin. Was started on labetalol 100 mg daily. 03/23/23: Labetalol is working well, but having symptoms in the late afternoon/evening- recommend increasing labetalol 100 mg 2 twice daily, message also sent to Dr. Martin 05/16/23: Symptoms continue to be well controlled on labetalol. 06/13: Decreased labetalol to once daily after presyncope. 07/04: Dr. Chavez increased her labetalol again 07/12/23: Symptoms persist, cardiology referral KEVIN. Consider IOL at 38 weeks, due to multiple medications changes. 07/21/2023: Changed to metoprolol on 07/12/2023: 25mg PO BID. Continuing to be symptomatic. 2. Hx of preeclampsia Was not on magnesium Recommended Baby ASA from 12 weeks gestation. Baseline labs ordered at NOB AST elevated at NOB. Will repeat at next visit. Order placed: WNL 3. Hx of vaginal hematoma requiring surgical intervention at 6 weeks 4. Hx of hemorrhage Received 2 units RBC 5. Family hx of MTHFR deficiency 6. Hx of Chorio? Not clear in delivery note 7. Hx of Infertility Conceived on letrozole 8. ADHD Takes Adderall 20 mg, stopped in early but considering restarting as needed 9. Pyelonephritis in early , treated at [place] [facility] 10. Breast augmentation in fall of 2021 11. Anemia at 28 weeks, Hb 10.2 - started iron supplement - repeat at 32 weeks: 10.7 - 06/27/23: 11.0 COVID: Declined 05/31/2023 Flu: Declined 05/31/2023 TDAP: 05/31/23 32wk Mental Health: Meds Home Medications and Allergies Home Medications Medication Instructions Recorded Confirmed Type prenat.vits,beba,rmi-[id number] 1 tab PO QDAY 11/08/21 07/26/23 History sumatriptan succinate 50 mg tablet 50 mg PO .As Needed as needed PRN 11/08/21 07/26/23 History cetirizine 10 mg capsule (Zyrtec) 10 mg PO QDAY PRN 12/29/22 07/26/23 History fluticasone propionate 50 1 spray intranasal QDAY 12/29/22 07/26/23 History mcg/actuation nasal spray,suspension (Flonase Allergy Relief) benzoyl peroxide 10 % topical gel 1 applic topical QDAY 01/24/23 07/26/23 History (Acne Treatment (benzoyl peroxide)) aspirin 81 mg chewable tablet 81 mg PO QDAY 02/22/23 07/26/23 History acetaminophen 325 mg capsule 325 mg PO ONCE PRN 05/16/23 07/26/23 History (Tylenol) Allergies Allergy/AdvReac Type Severity Reaction Status Date / Time No Known Drug Allergies Allergy Verified 07/21/23 09:01 OB - H&P: Exam Physical Exam: Vital signs: Pulse BP Pulse Ox 90 126/78 98 07/26/23 16:26 07/26/23 16:26 07/26/23 16:25 Narrative: Physical exam: General: No acute distress Psych: Alert and oriented x3, full affect Abdomen: Gravid. Otherwise soft and nontender. EFW 3450 g by Beltran. heart rate: Reactive NST. Baseline of 130 beats per minute, moderate variability, accelerations present, decelerations absent. Cervix: 1/50/-2. Cook catheter placed. Presentation: Cephalic by Beltran and exam. OB - Problem Based A/P Additional Plan (1) Anemia complicating : Status: Acute (2) Tachycardia: Status: Acute (3) POTS (postural orthostatic tachycardia syndrome): Status: Acute (4) History of pre-eclampsia in prior , currently : Status: Acute (5) Asthma, exercise induced: Status: Acute Plan Ms. Zamora is a 27yo at 38w3d GA admitted for IOL in the setting of persistent symptomatic tachycardia despite treatment. is complicated by symptomatic tachycardia status post cardiology evaluation on metoprolol, POTS, history of preeclampsia, history of hemorrhage, gestational anemia, asthma and ADHD. - Cervix is 1/50/-2, status post Cook catheter placement. Plan low-dose Pitocin call overnight. - Blood type A positive, plan active type and screen and CBC on admission given history of hemorrhage and anemia - GBS negative - EFW by Beltran's 3450 g
[2023-07-26 18:05] LABS: Basophils Absolute Auto 0.01 K/uL (0.00-0.30); Basophils Percent Auto 0.1 % (0.0-3.0); Eosinophils Absolute Auto 0.02 K/uL (0.00-0.50); Eosinophils Percent Auto 0.2 % (0.0-7.0); Hematocrit 35.9 % (33.0-51.0); Hemoglobin* 11.9 gm/dL (12.0-16.0); Immature Granulocytes Abs Auto 0.06 K/uL (0.00-0.30); Immature Granulocytes Pct Auto 0.6 %; Lymphocytes Percent Auto 16.1 % (20-44); Mean Corpuscular HGB Conc 33 gm/dL (32-36); Mean Corpuscular Hemoglobin 32 pg (26-34); Mean Corpuscular Volume 97 fL (80-100); Monocytes Percent Auto 7.1 % (0.0-11.0); Neutrophils Percent Auto 75.9 % (42.0-72.0); Platelet Count* 174 K/uL (140-440); RDW Coefficient of Variation % 13.2 % (11.5-15.5); Red Blood Count 3.72 m/uL (4.00-5.20); White Blood Count* 10.04 K/uL (4.50-11.00)
[2023-07-26 18:07] LABS: Slide Review Reflex No
[2023-07-26] MEDS: ACETAMINOPHEN 500 MG TABLET 1000 MG PO (19:18)
[2023-07-26] MEDS: MORPHINE 10 MG/ML inj IM (21:24)
[2023-07-26] MEDS: hydrOXYzine pamoate 25 MG CAPSULE 100 MG PO (21:25)
[2023-07-27] VITALS (165 sets, daily range): BP systolic 103–169; BP diastolic 53–84; PULSE 72–147; RESP 16–18; TEMP 36.7–37.3; O2SAT 85–100
[2023-07-27] MEDS: LACTATED RINGERS 1000 ML 1,000 ML 125 ML IV ×2 (00:05→07:51)
[2023-07-27] MEDS: OXYTOCIN 30 unit/500 ML in NS 30 UNIT/500 ML BAG IVPB (00:05)
--- NOTE | 2023-07-27 08:15 | PM.OBPNL ---
Subjective Time Seen by Provider: 08:15 Date Seen: 07/27/23 Narrative: Subjective: Patient is feeling contractions but is comfortable with them. Pitocin: 8 milliunits/minute. Verbal consent obtained for artificial rupture of membranes. Vital signs: Per electronic medical record. EFM: Baseline 145, positive accelerations, negative decelerations, moderate variability, reactive. Category 1. [place]: Contractions every 2-3 minutes. SVE: 5 cm/70%/-2. AROM with clear fluid. Assessment: 27-year-old 2 para 1 at 38 weeks 4 days gestation undergoing induction of labor Plan: 1. Continue Pitocin per labor induction protocol. 2. Considering epidural for labor analgesia. 3. Okay to give metoprolol dose this morning. Objective Vital Signs: Last Vital Signs Temp 99.2 F 07/27/23 07:22 Pulse 108 H 07/27/23 08:07 Resp 16 07/27/23 05:15 BP 134/83 07/27/23 08:07 Pulse Ox 98 07/27/23 08:10
[2023-07-27] MEDS: METOPROLOL TARTRATE 25 MG TABLET PO (08:49)
[2023-07-27] MEDS: miSOPROStoL 800 MCG/4 TABLET PR (11:26)
--- NOTE | 2023-07-27 11:51 | W.PM.VAGDEL1 ---
Procedure Delivery date: 07/27/23 Procedure Done: Global Procedure Details: Carmen is a 27 year-old G in 2 P 1 now 2 admitted on 07/26/2023 at 4:00 p.m. at 38 Weeks, 3 Days gestation for induction of labor. AROM occurred at 8:08 a.m. on 07/27/2023 with clear fluid. Labor Analgesia: None Pitocin: Yes Labor onset: 07/27/2023 at 8:10 a.m.. Complete: 07/27/2023 at 10:50 a.m.. Pushin07/27/2023 at 10:51 a.m.. heart tones during second stage were: Category 2 with variable/early decelerations with some contractions well pushing, moderate variability between contractions, reassuring. At 11:16 a.m. a viable male infant delivered in vertex direct OA presentation over intact perineum via spontaneous vaginal delivery. The infant was placed on maternal abdomen. Cord was clamped and cut after a 30-60 second delay. Nose and mouth were bulb suctioned. Infant weight pending. 8 at 1 minute and 8 at 5 minutes. Shoulder dystocia: No. Nuchal cord: No. The patient received Pitocin IV 30 units in 500 mL wide open and Cytotec 800 mg p.r. for mild uterine atony after delivery of the placenta. Placenta delivered spontaneously and complete at 11:30 a.m. with a 3 vessel cord. Laceration(s): None. Blood loss: 400 mL. Blood loss measurement type: Quantitate Sponge and needles counts are correct. Specimen: None Mother and were stable after delivery. 's name: Colin The patient is planning on breast feeding. Events: Other (Symptomatic palpitations) Intrapartal Events: None Delivery monitor: external FHT Route of delivery: Laceration description: None Anesthesia type: None Disposition: floor
[2023-07-27] MEDS: IBUPROFEN 600 MG TABLET PO ×2 (12:06→18:02)
[2023-07-27] MEDS: ACETAMINOPHEN 500 MG TABLET 1000 MG PO ×2 (14:55→20:29)
[2023-07-27] MEDS: LANOLIN CREAM 1 APPLIC TOPICAL (15:13)
[2023-07-27] MEDS: BENZOCAINE/MENTHOL SPRAY 85 GM AEROSOL 1 APPLIC TOPICAL (15:13)
[2023-07-28] MEDS: IBUPROFEN 600 MG TABLET PO ×3 (00:25→14:02)
[2023-07-28 00:39] VITALS: BP 117/86; PULSE 74; RESP 16; TEMP 36.9; O2SAT 97
[2023-07-28] MEDS: ACETAMINOPHEN 500 MG TABLET 1000 MG PO ×3 (01:53→16:52)
[2023-07-28 04:55] VITALS: BP 114/82; PULSE 89; RESP 18; O2SAT 97
[2023-07-28 06:31] LABS: Hemoglobin* 10.3 gm/dL (12.0-16.0)
--- NOTE | 2023-07-28 07:39 | P.DS_ITS ---
DS: Providers Provider Date Seen: 07/28/23 Date of admission: 07/26/23 16:10 Primary care physician: Ernie Avalos MD Admitting Clinician: Eugenie Soliz MD Attending Physician on discharge: Jo Ann Carey CNM DS: Diagnosis Discharge Diagnosis (1) care and examination immediately after delivery: Status: Acute (2) Lactating mother: Status: Acute (3) Anemia complicating : Status: Acute Exam Narrative: Exam Narrative: GENERAL APPEARANCE:? normal affect, alert, no distress MOOD:? appropriate CHEST:? clear to auscultation HEART:? regular rate and rhythm ABDOMEN:? soft, non-tender the uterine fundus is At Umbilicus, slightly off to left and is appropriate for the stage of recovery. Pt encouraged to void. PERINEUM:? mild edema of the perineum; lochia scant EXTREMITIES:? normal and no edema Const: Vital Signs, click to edit/add: Vital Signs - 24 hr 07/27/23 07:40 07/27/23 07:45 07/27/23 07:50 Temperature Pulse Rate Pulse Rate [Pulse Oximeter] Respiratory Rate Blood Pressure Blood Pressure [Le ft Arm] Pulse Oximetry 100 100 100 [facility] 07/27/23 07:55 07/27/23 08:00 07/27/23 08:05 Temperature Pulse Rate Pulse Rate [Pulse Oximeter] Respiratory Rate Blood Pressure Blood Pressure [Le ft Arm] Pulse Oximetry 99 98 99 [facility] 07/27/23 08:07 07/27/23 08:10 07/27/23 08:15 Temperature Pulse Rate 108 H Pulse Rate [Pulse Oximeter] Respiratory Rate Blood Pressure 134/83 Blood Pressure [Le ft Arm] Pulse Oximetry 98 97 Oxygen Delivery Me od 07/27/23 08:20 07/27/23 08:25 07/27/23 08:30 Temperature Pulse Rate Pulse Rate [Pulse Oximeter] Respiratory Rate Blood Pressure Blood Pressure [Le ft Arm] Pulse Oximetry 97 99 99 [facility]xygen Delivery [facility] 07/27/23 08:35 07/27/23 08:40 07/27/23 08:44 Temperature 98.5 F Pulse Rate Pulse Rate [Pulse Oximeter] Respiratory Rate Blood Pressure Blood Pressure [Le ft Arm] Pulse Oximetry 99 98 Oxygen Delivery [facility] 07/27/23 08:45 07/27/23 08:50 07/27/23 08:55 Temperature Pulse Rate Pulse Rate [Pulse Oximeter] Respiratory Rate Blood Pressure Blood Pressure [Le ft Arm] Pulse Oximetry 98 99 97 Oxygen Delivery Me thod 07/27/23 09:00 07/27/23 09:04 07/27/23 09:05 Temperature Pulse Rate 109 H Pulse Rate [Pulse Oximeter] Respiratory Rate Blood Pressure 134/79 Blood Pressure [Le ft Arm] Pulse Oximetry 98 98 Oxygen Delivery De thod 07/27/23 09:29 07/27/23 09:29 07/27/23 10:11 Temperature 98.4 F Pulse Rate Pulse Rate [Pulse Oximeter] Respiratory Rate Blood Pressure Blood Pressure [Le ft Arm] Pulse Oximetry 94 96 Oxygen Delivery De thod 07/27/23 10:41 07/27/23 10:42 07/27/23 10:46 Temperature Pulse Rate 92 Pulse Rate [Pulse Oximeter] Respiratory Rate Blood Pressure 123/68 Blood Pressure [Le ft Arm] Pulse Oximetry 99 97 Oxygen Delivery De thod 07/27/23 10:47 07/27/23 10:51 07/27/23 11:11 Temperature Pulse Rate 106 H Pulse Rate [Pulse Oximeter] Respiratory Rate Blood Pressure 150/68 H Blood Pressure [Le ft Arm] Pulse Oximetry 89 100 100 Oxygen Delivery De thod 07/27/23 11:16 07/27/23 11:39 07/27/23 11:40 Temperature Pulse Rate 103 H Pulse Rate [Pulse Oximeter] Respiratory Rate Blood Pressure 127/81 Blood Pressure [Le ft Arm] Pulse Oximetry 94 96 Oxygen Delivery Me thod 07/27/23 11:44 07/27/23 11:49 07/27/23 11:54 Temperature Pulse Rate Pulse Rate [Pulse Oximeter] Respiratory Rate Blood Pressure Blood Pressure [Le ft Arm] Pulse Oximetry 95 98 99 Oxygen Delivery Me thod 07/27/23 11:56 07/27/23 11:59 07/27/23 12:00 Temperature Pulse Rate 97 Pulse Rate [Pulse Oximeter] Respiratory Rate 16 Blood Pressure 137/67 Blood Pressure [Le ft Arm] Pulse Oximetry 99 98 Oxygen Delivery Me thod 07/27/23 12:04 07/27/23 12:09 07/27/23 12:11 Temperature Pulse Rate 98 Pulse Rate [Pulse Oximeter] Respiratory Rate Blood Pressure 124/66 Blood Pressure [Le ft Arm] Pulse Oximetry 99 100 Oxygen Delivery Me thod 07/27/23 12:14 07/27/23 12:15 07/27/23 12:19 Temperature Pulse Rate Pulse Rate [Pulse Oximeter] Respiratory Rate 16 Blood Pressure Blood Pressure [Le ft Arm] Pulse Oximetry 99 98 99 Oxygen Delivery Me thod 07/27/23 12:24 07/27/23 12:27 07/27/23 12:29 Temperature Pulse Rate 121 H Pulse Rate [Pulse Oximeter] Respiratory Rate Blood Pressure 169/72 H Blood Pressure [Le ft Arm] Pulse Oximetry 100 99 Oxygen Delivery Me thod 07/27/23 12:30 07/27/23 12:34 07/27/23 12:39 Temperature Pulse Rate Pulse Rate [Pulse Oximeter] Respiratory Rate 16 Blood Pressure Blood Pressure [Le ft Arm] Pulse Oximetry 98 98 98 Oxygen Delivery Me thod 07/27/23 12:42 07/27/23 12:44 07/27/23 12:45 Temperature 98.7 F Pulse Rate 100 Pulse Rate [Pulse Oximeter] Respiratory Rate 16 Blood Pressure 132/58 L Blood Pressure [Le ft Arm] Pulse Oximetry 98 98 Oxygen Delivery Me thod 07/27/23 12:49 07/27/23 12:54 07/27/23 12:56 Temperature Pulse Rate 107 H Pulse Rate [Pulse Oximeter] Respiratory Rate Blood Pressure 138/84 Blood Pressure [Le ft Arm] Pulse Oximetry 98 98 Oxygen Delivery Me thod 07/27/23 12:59 07/27/23 13:00 07/27/23 13:04 Temperature 98.7 F Pulse Rate Pulse Rate [Pulse Oximeter] Respiratory Rate 16 Blood Pressure Blood Pressure [Le ft Arm] Pulse Oximetry 98 98 98 Oxygen Delivery Me thod 07/27/23 13:08 07/27/23 13:09 07/27/23 13:15 Temperature Pulse Rate 93 Pulse Rate [Pulse Oximeter] Respiratory Rate 16 Blood Pressure 125/71 Blood Pressure [Le ft Arm] Pulse Oximetry 99 Oxygen Delivery Me thod 07/27/23 14:58 07/27/23 20:33 07/28/23 00:39 Temperature 98.4 F 98.0 F 98.4 F Pulse Rate Pulse Rate [Pulse Oximeter] 93 79 74 Respiratory Rate 18 18 16 Blood Pressure Blood Pressure [Le ft Arm] 115/72 122/74 117/86 Pulse Oximetry 97 97 97 Oxygen Delivery Me thod Room Air Room Air Room Air 07/28/23 04:55 Temperature Pulse Rate Pulse Rate [Pulse Oximeter] 89 Respiratory Rate 18 Blood Pressure Blood Pressure [Le ft Arm] 114/82 Pulse Oximetry 97 Oxygen Delivery Me thod Room Air Documenting provider has reviewed patient's vital signs: yes OB - DS: Summary Hospital Course Hospital Course: Carmen is a 27 y.o. G 2 P 2 who was admitted to [facility] for induction of labor for symptomatic tachycardia affecting . ?She had a NVD that was uncomplicated. The patient feels well. ?The pain is well controlled with current medications. ?She has no new complaints. ?She is breast feeding and reports things are going well. the patient has done well.? Vitals have been stable.? She has remained afebrile.?Her heart rate has been stable and she feels palpitations have resolved since delivery. Has a good appetite, is tolerating a general diet. ?She is voiding without difficulty.? She is passing gas and has had a very small bowel movement.? She is ambulating and denies any dizziness.? Has small amount of rubra lochia. She is planning progesterone only pill for prevention. Patient is thinking she wants to discharge today but her and her were not in agreement. If she stays, will plan for someone to round on her tomorrow. Problems: Anemia plan: Discharge home with baby. Follow up in 2 weeks and 6 weeks. , may see if needed Hgb 10.3. Iron supplement can be continued orally every other day Symptomatic Tachycardia of , resolved. Stop taking Metoprolol per Dr. Crum. Patient aware of symptoms to reach out with. Peripartum Data Infant delivery method: Vaginal Laceration description: None complications: none [place] Infant Gender: Male Infant Discharge Plan: Home Status at Discharge Functional status at discharge: independent ambulation Overall status at discharge: patient is progressing back to baseline Time Spent with Patient Time attestation: Total time spent providing and/or coordinating discharge services: Time spent: Less than 30 minutes Discharge Plan Discharge Disposition: Home, Self-Care Date of Admission: 07/26/23 16:10 Attending Provider on Discharge: Jo Ann Carey Primary Care Provider: Ernie Avalos Condition: Stable Anticipated Discharge Date/Time: 07/28/23 12:00 Discharge Medications: New docusate sodium 100 mg Capsule 100 mg PO BID PRNQty: 90 0RF ibuprofen 600 mg Tablet 600 mg PO Q6H PRNQty: 60 0RF acetaminophen 500 mg Tablet 1,000 mg PO Q6H PRNQty: 0 0RF Continued prenat.vits,beba,wdk-sduc-xdzoa Tablet 1 tab PO QDAY sumatriptan succinate 50 mg tablet 50 mg PO .As Needed as needed PRN Rx Instructions: ONE TAB AT ONSET OF HEADACHE, MAY REPEAT Q2H PRN, MAX 200 MG/24 HRS Zyrtec 10 mg capsule 10 mg PO QDAY PRN fluticasone propionate [Flonase Allergy Relief] 50 mcg/actuation spray,suspension 1 spray intranasal QDAY Rx Instructions: administer into each nostril acetaminophen [Tylenol] 325 mg capsule 325 mg PO ONCE PRN clindamycin phosphate 1 % solution 1 applic topical BID Qty: 60 3RF benzoyl peroxide [Acne Treatment (benzoyl perox)] 10 % gel 1 applic topical QDAY ferrous sulfate [Feosol] 325 mg (65 mg iron) tablet 650 mg PO Q OTHER DAY Qty: 60 0RF Discontinued aspirin 81 mg tablet,chewable 81 mg PO QDAY metoprolol tartrate 25 mg tablet 25 mg PO Q12H Qty: 60 0RF Discharge Orders: Discharge Order (Routine); Ordered 07/28/23 Ordered By: Jo Ann Carey Patient Education: OB Over the Counter Medication Information, OB Vaginal/Breast Feeding Additional Instructions: Discharge instructions were reviewed with the patient including signs and symptoms of infection and home going medications Nothing vaginally for 6 weeks: no tampons or intercourse Off Work or School for 6 weeks 2-week visit: discuss feeding concerns, review control options and screen for anxiety/depression. 6-week visit for an annual exam. consultation services are available to all mothers and babies for the first year after delivery.? To make an appointment, please call [phone]. Activity Level: Activity as Tolerated Discharge Diet: Regular Follow Up Appointments: [facility] [Provider Group] Forms: [facility] Info Instructions
[2023-07-28 07:40] VITALS: BP 113/76; PULSE 84; RESP 16; TEMP 36.8; O2SAT 97
[2023-07-29 00:35] LABS: Rapid Plasma Reagin (RPR) Non Reactive (Non Reactive)
== END 2023-07-28 18:30 | disposition home or self-care (01) | DRG 560 ==
PROVIDERS: Admitting Provider Obstetrics & Gynecology; PCP Family Medicine; Visit Provider Obstetrics & Gynecology
DX: O99.892 Other specified diseases and conditions complicating childbirth (principal); G90.A Postural orthostatic tachycardia syndrome [POTS]; Z3A.38 38 weeks gestation of pregnancy; O99.02 Anemia complicating childbirth; O62.2 Other uterine inertia; O90.81 Anemia of the puerperium; D62 Acute posthemorrhagic anemia; R00.0 Tachycardia, unspecified; Z87.59 Personal history of other complications of pregnancy, childbirth and the puerperium; Z98.82 Breast implant status; O99.344 Other mental disorders complicating childbirth; F98.8 Other specified behavioral and emotional disorders with onset usually occurring in childhood and adolescence; Z37.0 Single live birth
CPT/HCPCS: 36415; 59200; 85018; 85025; 86592; 86850; 86900; 86901; A9270; C1726; J2270; J2371; J7120

== ENCOUNTER 2023-08-11 09:00 | Outpatient (CLI) | payer BC, SELFPAY ==
--- OUTSIDE RECORDS SUMMARY | 2023-08-11 09:03 | XMS_ITS | Encounter Summary ---
Author Name Unknown Organization [facility] Address [address] [place] [address] Care Team Providers Care Steel Fixer Name Role Phone Jessenia Lott APRN, C.N.P. Primary Care Pro vider Reason for Visit * Reason Onset Date Comments Order Request 07/14/2023 ECHO Encounter Details Date Type Department Care Team (Late st Contact Info) Description 07/14/2023 Clinical Communication Department of Radiology in [place] [id number] [place] [address] External, Referring Provider Order Request (ECHO) Social History Tobacco Use Types Packs/Day Years [...] How often do you attend chur or judaism services? 1 to 4 times per year 12/14/2021 Do you belong to any clubs o r organizations such as synagogue groups, unions, fraternal or athletic groups, or [...] Answer Date Recorded PHQ-2 Score 0 05/18/2021 [facility] Occupational Stress Questionnaire Answer [...] place to sleep or slept in a skilled nursing (including now)? No 12/14/2021 Nutrition Answer Date [...] Sex Assigned at Female 04/30/2021 10:45 AM SUBSTATION OPERATOR CHIEF Gender Identity Female 04/30/2021 10:45 AM SUBSTATION OPERATOR CHIEF Sexual Orientation Straight 04/30/2021 10 :45 AM SUBSTATION OPERATOR CHIEF documented as of this encounter Miscellaneous Notes * Telephone Encounter - Martha Boyd - 07/18/2023 4:00 PM CDT Looks like order is for [place] and patient lives in [place] documented in this encounter Plan of Treatment Not on file documented as of this encounter Visit Diagnoses Not on filedocumented in this encounter Care Teams Steel Fixer Relationship Specialty Start Date End Date Jessenia Lott APRN, C.N.P. [address] [place] [phone] PCP - General Family Medicine 05/17/21 documented as of this encounter
--- OUTSIDE RECORDS SUMMARY | 2023-08-11 09:03 | XMS_ITS | Referral Summary ---
Author Name Unknown Organization [facility] Address [address] [place] [address] Care Team Providers Care Data Scientist Name Role Phone Jessenia Lott APRN C.N.P. Primary Care Pro vider Source Comments Patient records contain information from all sites at [facility]. For routine questions regarding patient records, call [phone] during business hours, M-F 8:00 AM - 5:00 PM Central Time. Record requests for emergency care only can be directed to [phone] at any time.[facility] Encounters Date Type Department Care Team Description 07/14/2023 Clinical Communication Department of Radiology in [address] [address] External, Referring Provider Order Request (ECHO) from Last 3 Months Allergies No known active allergies Medications Medication Sig Dispensed Refills Start Date End Date Status spironolactone (ALDACTONE) 50 mg tablet Take 1 tablet by mouth daily. 100 mg in the AM and 50 mg in the PM 05/18/2021 Active 113/iron/lmfol/ome g3s ( [id number]-JIOY-[id number]-OM EG3 ORAL) Take 1 tablet by mouth daily. 12/11/2018 Active dextroamphetamine- amphetamine (ADDERALL) 20 mg tablet Take 20 mg by mouth daily. 07/02/2021 Active amoxicillin (AMOXIL) 500 mg capsuleIndications :Otitis Media Acute Serous Right Take 2 capsules (1,000 mg total) by mouth 2 (two) times a day. 40 capsule 08/08/2021 Active Additional Information Patient not taking.Reported on 06/02/2022 SUMATRIPTAN SUCCINATE ORAL 50 mg as needed. 11/08/2021 Acti ve cyclobenzaprine (FLEXERIL) 5 mg tabletIndications: Pain Back Take 1 tablet (5 mg total) by mouth 3 (three) times a day as needed for muscle spasms for up to 7 days. 20 tablet 06/02/2022 Active naproxen (NAPROSYN) 500 mg tabletIndications: Pain Back Take 1 tablet twice daily with food for the next 5 days and then take twice daily as needed for pain. 24 tablet 06/02/2022 Active Active Problems Comments Yes No [...] often do you attend chur ch or orthodox services? 1 to 4 times per year 12/14/2021 Do you belong to any clubs o r organizations such as restoration groups, unions, fraternal or athletic groups, or [...] Recorded PHQ-2 Score 0 05/18/2021 [facility] - Occupational [...] place to sleep or slept in a nursing home (including now)? No 12/14/2021 Nutrition Answer [...] Sex Assigned at Female 04/30/2021 10:45 AM MEDICAL AUDITOR Gender Identity Female 04/30/2021 10:45 AM MEDICAL AUDITOR Sexual Orientation Straight 04/30/2021 10 :45 AM MEDICAL AUDITOR Last Filed Vital Signs Vital Sign Reading [...] CDT Plan of Treatment Not on file Procedures Procedure Name Priority Date/Time Associated Diagnosis Comments CHLAMYDIA/GONORRHO EAE AMPLIFIED RNA Routine 05/28/2021 4:31 PM MEDICAL AUDITOR Preventive Gynecological Exam THINPREP SCREEN HPV REFLEX Routine 05/28/2021 4:31 PM MEDICAL AUDITOR Preventive Gynecological Exam from Last 3 Months or Most Recently Relevant to Health Maintenance Results * ThinPrep Screen HPV Reflex (05/28/2021 4:31 PM MEDICAL AUDITOR) 05/31/2021 3:47 PM MEDICAL AUDITOR [facility] Report electronically signed by MOISÉS Lucas(ASCP) I verify that I have examined all relevant slides/materials for the specimen(s) and rendered or confirmed the diagnosis. 05/31/2021 3:47 PM MEDICAL AUDITOR [facility] Gross Description Received specimen in a ThinPrep vial. 05/31/2021 3:47 PM MEDICAL AUDITOR [facility] Pap Test Source Cervical/Endocervi beba 05/31/2021 3:47 PM MEDICAL AUDITOR [facility] Interpretation Cervical/Endocervi beba ??(ThinPrep): Satisfactory for Evaluation Negative for Intraepithelial Lesion or Malignancy 05/31/2021 3:47 PM MEDICAL AUDITOR [facility] Varies (Cervix/Endocerv ix) 05/28/2021 4:31 PM MEDICAL AUDITOR 05/31/2021 7:15 AM MEDICAL AUDITOR Urban Mahmood Jr., M.D. LAB PAP PATHDX ORDERABLES [facility] [address] [place] [address], [facility]CY [facility] Cytology [address] [place] [id number] * Chlamydia / Gonorrhoeae Amplified RNA (05/28/2021 4:31 PM MEDICAL AUDITOR) Source Swab, Vagina 05/31/2021 3:24 PM MEDICAL AUDITOR MKTO Chlamydia trachomatis amplified RNA Negative Negative 05/31/2021 3:24 PM MEDICAL AUDITOR MK[facility] Source Swab, Vagina 05/31/2021 3:24 PM MEDICAL AUDITOR [facility] Neisseria gonorrhoeae amplified RNA Negative Negative 05/31/2021 3:24 PM MEDICAL AUDITOR [facility] Varies (Vagina) 05/28/2021 4 :31 PM MEDICAL AUDITOR 05/31/2021 10:50 AM MEDICAL AUDITOR Urban Mahmood Jr., M.D. LAB MICROBIOLO GY - GENERAL ORDERABLES [facility] [address] [place] [address], [facility] MKTO [facility] in [place] [address] [place] [id number] from Last 3 Months or Most Recently Relevant to Health Maintenance Care Teams Data Scientist Relationship Specialty Start Date End Date Jessenia Lott APRN, C.N.P. [address] [place] [phone] PCP - General Family Medicine 05/17/21
--- OUTSIDE RECORDS SUMMARY | 2023-08-11 09:03 | XMS_ITS ---
Author Name Unknown Organization [facility] Address [address] [place] [address] Care Team Providers Care Clinical Sciences Professor Name Role Phone Unavailable Unavailable Unavailable Surgery Details Not on file Complications Check Surgery Details section. Procedure Estimated Blood Loss Check Surgery Details section. Procedure Findings Check Surgery Details section. Procedure Specimens Taken Check Surgery Details section.
--- OUTSIDE RECORDS SUMMARY | 2023-08-11 09:03 | XMS_ITS | Clinical Summary ---
Author Name Unknown Organization [facility] Address [address] [place] [address] Care Team Providers Care Geriatrics Physician Name Role Phone Jessenia Lott APRN C.N.P. Primary Care Pro vider Source Comments Patient records contain information from all sites at [facility]. For routine questions regarding patient records, call [phone] during business hours, M-F 8:00 AM - 5:00 PM Central Time. Record requests for emergency care only can be directed to [phone] at any time.[facility] Allergies No known active allergies Medications Medication Sig Dispensed Refills Start Date End Date Status spironolactone (ALDACTONE) 50 mg tablet Take 1 tablet by mouth daily. 100 mg in the AM and 50 mg in the PM 05/18/2021 Active 113/iron/lmfol/ome g3s ( [id number]-OM EG3 ORAL) Take 1 tablet by mouth [...] Problems Comments Yes No known active problems Encounters Date Type Department Care Team Description 07/14/2023 Clinical Communication Department of Radiology in [address] [address] External, Referring Provider Order Request (ECHO) from Last 3 Months Immunizations Name Administration Dates Next Due HepB [...] often do you attend chur ch or hinduism services? 1 to 4 times per year 12/14/2021 Do you belong to any clubs o r organizations such as cheondoism groups, unions, fraternal or athletic groups, or [...] PHQ-2 Score 0 05/18/2021 [facility] - Occupational [...] place to sleep or slept in a residential (including now)? No 12/14/2021 Nutrition Answer Date [...] Sex Assigned at Female 04/30/2021 10:45 AM SUPERVISOR HANGING AND TRIMMING Gender Identity Female 04/30/2021 10:45 AM SUPERVISOR HANGING AND TRIMMING Sexual Orientation Straight 04/30/2021 10 :45 AM SUPERVISOR HANGING AND TRIMMING Last Filed Vital Signs Vital Sign Reading [...] HIV Screening 1996 Hepatitis C Screening 1996 Varicella Vaccines (2 of 2 - 13+ 2-dose series) 08/19/2019 07/22/2019 COVID-19 Vaccine (1 - 2022-24 season) 2022 Influenza Vaccine (#1) 2023 0, 02/08/2019 Depression Screening (Annual PHQ-2) 04/24/2023 Cervical Cancer Screening 05/28/20242021, 11/01/2019, 12/03/2018 (Performed elsewhere) DTaP,Tdap,and Td Vaccines (3 - Td or Tdap) 05/31/2033 05/31/2023, 10/03/2018 RSV vaccine - (32-36 weeks) or 60+ years (1 - 1-dose 60+ series) 2056 Hepatitis B Vaccines Completed 12/10/2019, 10/09/2019, 07/22/2019 Chlamydia and Gonorrhea Screening Discontinued 05/28/2021 HPV Vaccines Aged Out No longer eligi ble based on patient's age to complete this topic Pneumococcal vaccine (0-64 years) Aged Out No longer eligible b ased on patient's age to complete this topic Procedures Procedure Name Priority Date/Time Associated Diagnosis Comments CHLAMYDIA/GONORRHO EAE AMPLIFIED RNA Routine 05/28/2021 4:31 PM SUPERVISOR HANGING AND TRIMMING Preventive Gynecological Exam THINPREP SCREEN HPV REFLEX Routine 05/28/2021 4:31 PM SUPERVISOR HANGING AND TRIMMING Preventive Gynecological Exam from Last 3 Months or Most Recently Relevant to Health Maintenance Results * ThinPrep Screen HPV Reflex (05/28/2021 4:31 PM SUPERVISOR HANGING AND TRIMMING) 05/31/2021 3:47 PM SUPERVISOR HANGING AND TRIMMING [facility] Report electronically signed by MOISÉS Lucas[facility] I verify that I have examined all relevant slides/materials for the specimen(s) and rendered or confirmed the diagnosis. 05/31/2021 3:47 PM SUPERVISOR HANGING AND TRIMMING [facility] Gross Description Received specimen in a ThinPrep vial. 05/31/2021 3:47 PM SUPERVISOR HANGING AND TRIMMING [facility] Pap Test Source Cervical/Endocervi beba 05/31/2021 3:47 PM SUPERVISOR HANGING AND TRIMMING [facility] Interpretation Cervical/Endocervi beba ??(ThinPrep): Satisfactory for Evaluation Negative for Intraepithelial Lesion or Malignancy 05/31/2021 3:47 PM SUPERVISOR HANGING AND TRIMMING [facility] Varies (Cervix/Endocerv ix) 05/28/2021 4:31 PM SUPERVISOR HANGING AND TRIMMING 05/31/2021 7:15 AM SUPERVISOR HANGING AND TRIMMING Urban Mahmood Jr., M.D. LAB PAP PATHDX ORDERABLES Performing Organization Address City/[facility]/ZIP Co de Phone Number [facility] [address] [place] [address], [facility] [address] [place] [address] * Chlamydia / Gonorrhoeae Amplified RNA (05/28/2021 4:31 PM SUPERVISOR HANGING AND TRIMMING) Source Swab, Vagina 05/31/2021 3:24 PM SUPERVISOR HANGING AND TRIMMING MKTO Chlamydia trachomatis amplified RNA Negative Negative 05/31/2021 3:24 PM SUPERVISOR HANGING AND TRIMMING [facility] Source Swab, Vagina 05/31/2021 3:24 PM SUPERVISOR HANGING AND TRIMMING MKTO Neisseria gonorrhoeae amplified RNA Negative Negative 05/31/2021 3:24 PM SUPERVISOR HANGING AND TRIMMING [facility] Varies (Vagina) 05/28/2021 4 :31 PM SUPERVISOR HANGING AND TRIMMING 05/31/2021 10:50 AM SUPERVISOR HANGING AND TRIMMING Urban Mahmood Jr., M.D. LAB MICROBIOLO GY - GENERAL ORDERABLES [facility] [address] [place] [address], [facility] MK[facility] [place] [address] from Last 3 Months or Most Recently Relevant to Health Maintenance Care Teams Geriatrics Physician Relationship Specialty Start Date End Date Jessenia Lott APRN, C.N.P. [address] [place] [phone] PCP - General Family Medicine 05/17/21
--- OUTSIDE RECORDS SUMMARY | 2023-08-11 09:04 | XMS_ITS | Clinical Summary ---
Author Name Unknown Organization [facility] Address [address] [address] Care Team Providers Care Carder Blankets Name Role Phone Canelo Tarango PA-C Primary Care Provider [phone]- [phone] Source Comments You are receiving this document as you are listed as the primary care provider,follow-up provider, or the patient has been referred to you for consultation.This is in compliance with the Medicare and[facility] EHR Incentive Program,which states Providers who transition their patient to another setting of careor provider of care or refers their patient to another provider of care shouldprovide summary care record for each transition of care or referral. [facility] Allergies No known active allergies Medications Medication Sig Dispensed Refills Start Date End Date Status vitamin-ferrous fumarate-folic acid (PRENATALPLUS) 27-1 MG tablet Take 1 Tablet by mouth daily. Active Norethindrone, Contraceptive, (MICRONOR) 0.35 MG tablet Take 1 Tablet by mouth daily. 3 01/16/2019 Active Multiple Vitamins-Minerals (MULTIVITAMIN ADULT OR) Active Fexofenadine-Pseudoep hedrine (ALYSON-D24) 180-240 MG tabletIndications:Sea shen allergies Take 1 Tablet by mouth daily. 30 Tablet 01/15/2020 Active amphetamine-dextroamp hetamine (ADDERALL) 20 MG tablet Take 1 Tablet (20 mg) by mouth daily. 11/02/2022 Active spironolactone (ALDACTONE) 50 MG tablet Take by mouth. 11/10/2022 Active Active Problems Problem Noted Date Diagnosed Date Atypical squamous cells of u ndetermined significance (ASCUS) on Papanicolaou smear of cervix 06/12/2018 Overview: 06/12/18 ASCUS pap @ 22 yo. Plan 1 year pap 11/01/19 Appt Resolved Problems Problem Noted Date Diagnosed Date Resolved Date Vaginal hematoma 02/15/2019 10/09/2019 Overview: Added automatically from request for surgery [id number] Menorrhagia 07/11/2013 10/09/2019 Immunizations Name Administration Dates Next Due HepB Adult (Engerix-B, 20+ y rs, 3 dose series) 12/10/2019,10/09/2019,07/22/2019 Influenza (LAIV), Unspecified 02/08/2019 Influenza IIV4 (Quadrivalent) 0.5mL (09248) 12/24 MMR 07/22/2019 Tdap 10/03/2018 Varicella 07/22/2019 [...] Health Maintenance Due Date Last Done Comments MMR (2 of 2 - Risk 2-dose series) 08/19/2019 07/22/2019 Varicella (2 of 2 - 13+ 2-dose series) 08/19/2019 07/22/2019 Adult Preventive Visit 10/08/2021 10/09/2019 Cervical Cancer Screening 10/31/20222019 (Completed) COVID-19 Vaccine ( - 24 season) 2022 Influenza (#1) 2022 01/15/2020, 02/08/2019 DTaP/Tdap/Td (2 - Tdap) 10/03/2028 10/03/2018 Zoster/Shingles (1 of 2) 2046 HIV Screening (Preventive Services) Completed 10/09/2019 Hep C Screening (Preventive Services) Completed 10/09/2019 HepB Completed 12/10/2019, 10/09/2019, 07/22/2019 Chlamydia Discontinued 05/28/2021, 10/09/2019, 03/23/2018 HPV Vaccine Aged Out No longer eligi ble based on patient's age to complete this topic HepA Aged Out No longer eligi ble [...] Procedure Name Priority Date/Time Associated Diagnosis Comments CHLAMYDIA & GC, URINE (14 YEARS AND OLDER) Routine 10/09/2019 3:28 PM CDT Routine screening for STI (sexually transmitted infection) HIV 1/2 AG/AB 4TH GEN Routine 10/09/2019 3:26 PM CDT Screening for HIV (human immunodeficiency virus) Routine screening for STI (sexually transmitted infection) HEPATITIS C ANTIBODY, WITH REFLEX Routine 10/09/2019 3:26 PM CDT Routine screening for STI (sexually transmitted infection) from Last 3 Months or Most Recently Relevant to Health Maintenance Results * Chlamydia & GC, Urine (14 Years and Older) (10/09/2019 3:28 PM CDT) Chlamydia Trachomatis STD Not Detected Not Detected 10/10/2019 5:12 PM CDT [facility] N. gonorrhoeae STD Not Detected Not Detected 10/10/2019 5:12 PM CDT [facility] Urine STD (Urine for STD) Non-blood Collection / Unknown 10/09/2019 3:28 PM CDT 10/09/2019 3:28 PM CDT Narrative [facility] - 10/10/2019 5:12 PM CDT Test performed by Molecular Detection Canelo Tarango PA-C LAB_1 Performing Organization Address [facility] Co de Phone Number [facility] [address] [place] [address], [facility] [phone] * HIV 1/2 Ag/Ab 4th Generation (10/09/2019 3:26 PM CDT) Pathologist [facility] HIV 1/2 Antigen/Anti body (4th generation) Negative (Non Reactive) Negative (Non Reactive) 10/10/2019 11:53 AM CDT [facility] Comment:HIV-1 p24 Antigen an d HIV-1/HIV-2 Antibody not detected Blood Venipuncture / Unknown 10/09/2019 3:26 PM CDT 10/09/2019 3:26 PM CDT Canleo Tarango PA-C LAB_1 Performing Organization Address [facility] de Phone Number [facility] [address] [place] [address], [facility] [phone] * Hepatitis C Antibody, with Reflex (10/09/2019 3:26 PM CDT) Pathologist [facility] Hepatitis C Antibody Negative (Non Reactive) Negative (Non Reactive) 10/10/2019 11:52 AM CDT [facility] Comment:Antibodies to HCV no t detected. Does not exclude the possiblity of exposure to HCV. Blood Venipuncture / Unknown 10/09/2019 3:26 PM CDT 10/09/2019 3:26 PM CDT Canelo Tarango PA-C LAB_1 [facility] [address] [place], [place] [id number], [facility] [phone] from Last 3 Months or Most Recently Relevant to Health Maintenance Care Teams Carder Blankets Relationship Specialty Start Date End Date Canelo Tarango PA-C [address] [place] [address] PCP - General Physician Swatch Paster 07/17/19
--- NOTE | 2023-08-11 17:00 | P.LACCB_ITS ---
Consult Note - Mom Date of Visit Date of visit: 08/11/23 supervisor home energy consultant: Lola Le Visit Code: Visit Patient's Information Phone number: [phone] : 2 Para: 2 Allergies No Known Drug Allergies Allergy (Verified 08/18/23 13:33) Mother's Medical History: Medical History (Updated 07/29/23 @ 00:01 by Background Daemon) Palpitation ?R00.2 - Palpitations (ICD-10) Tachycardia ?R00.0 - Tachycardia, unspecified (ICD-10) Work Plans: Returns to work in October Delivery Information Delivery type: Vaginal Weeks Gestation: 38.4 Gestational Age: AGA Weight: 3.37 kg Discharge Weight: 3.37 kg Baby's Information Baby's Age at Visit: 15 days Baby's Provider or Clinic: Dr. Mondragon Jaundice: Yes (to abdomen) Reason for Consult Reason for Consult: slow weight gain Past Experience Past Experience: Yes (nursed her older lamonte a little over a year, had some difficulty initially) Current Frequency of Day Feedings: about every three hours around the clock Both Breasts: Yes Suck: strong Latch: fairly wide Length of Time: 10 - 15 minutes/side Pumping Pumping: No (uses the Haakaa) Quantity Pumped: about 2 - 3 oz total each time Supplementing EMB Supplement: Yes (baby has taken 1 oz EBM after every feeding since 08/07) Formula Supplement: No Baby Elimination Number of Wet Diapers a Day: almost every feeding Number of BM a Day: 3 - 4 times/24 hours Breast/Nipple Condition Breast Information: WNL Maternal Nipple Condition - Left: Common Nipple Maternal Nipple Condition - Right: Common Nipple Sore Nipples: No Onsite Pre-Feed weight: 3.226 kg Post-Feed weight: 3.302 kg Milk Transferred (mL): 76 Assessments/Interventions Assessments/Interventions: Met with mom and this now 15 day old ex- term AGA baby for consult. Mom reports baby didn't gain any weight between his NB visit on 08/01 and the visit for his circumcision on 08/07. At that visit the circumcision was not completed d/t the lack of any weight gain and mom was instructed to give him 1 oz EBM after every nursing session. Mom reports baby is nursing about every three hours around the clock, POC often have to wake him up. She's been keeping the sessions to 10 - 15 min/side and then supplementing with 1 oz EBM by paced feeding. She is nervous to pump stating she pumped a lot with her first child and that it was a lot of work. She does use the Haakaa on the opposite side baby is nursing from and gets 2 - 3 oz total each time. Breasts WNL- symmetrical with rounded lower quadrants, intramammary distance is < 1.5 inches. Nipples are a little larger than normal, but everted and don't flatten or retract on compression. No damage noted. Baby has gained 26 grams/day since his visit on 08/07 and he's now 4% below BW at 15 DOL. He's jaundiced to his abdomen, last TSB = 16.2 and was trending down. Mom denies any caput/cephalohematoma at delivery. She thinks baby has equal ROM when turning his head/moving his extremities. His palate is WNL. He has a strong suck on a finger and the tongue extends over the gumline. The tongue has fairly good lateral movement as well. Both his upper and lower frenulum appear to be WNL. Mom latched baby to the left side in the football hold and the latch looked wide, mom was comfortable. Baby aggressively nursing for a few minutes, but then got very sleepy and needed constant stimulation to stay awake. Mom even took him off after about 10 minutes to burp him and wake him back up. He nursed another 10 minutes on the left but still needed almost constant stimulation. Sh e offered the right side in the cross cradle hold and again had good positioning. Baby was very sleepy on this side as well and after 10 minutes he was weighed and had transferred 58 ml. As mom held him he started to get fussy so she put him back on the breast and with stimulation he nursed another 5 - 7 minutes, transferring 18 ml for a total of 76 ml (2.5 oz). Plan: 1. Continue to nurse baby ALD or at least every three hours. Offer both sides like you have been and work to keep him actively nursing. If she finishes a nursing session and he starts to act hungry again, ok to put him back to breast. 2. Continue supplementing. She will try reducing it a little- will give .5 oz after every feeding, or 1 oz after every other feeding, or put him back to breast. She and dad are aware of how to pace feed. 3. Continue to use the Haakaa like she has been. She really doesn't want to pump but agreed to once/day to empty. 4. F/U with PCP for a weight check and circumcision next week and I will call to see how she's doing. Meds Home Medications and Allergies Home Medications Medication Instructions Recorded Confirmed Type prenat.vits,beba,bcq-hqeq-psxbc 1 tab PO QDAY 11/08/21 07/26/23 History sumatriptan succinate 50 mg tablet 50 mg PO .As Needed as needed PRN 11/08/21 07/26/23 History cetirizine 10 mg capsule (Zyrtec) 10 mg PO QDAY PRN 12/29/22 07/26/23 History fluticasone propionate 50 1 spray intranasal QDAY 12/29/22 07/26/23 History mcg/actuation nasal spray,suspension (Flonase Allergy Relief) benzoyl peroxide 10 % topical gel 1 applic topical QDAY 01/24/23 07/26/23 History (Acne Treatment (benzoyl peroxide)) acetaminophen 325 mg capsule 325 mg PO ONCE PRN 05/16/23 07/26/23 History (Tylenol) Allergies Allergy/AdvReac Type Severity Reaction Status Date / Time No Known Drug Allergies Allergy Verified 08/18/23 13:33
== END 2023-08-11 09:01 | disposition home or self-care (01) ==
LOC: OB LAC 09:01
PROVIDERS: PCP Family Medicine; Visit Provider Obstetrics & Gynecology
DX: Z39.1 Encounter for care and examination of lactating mother (principal)
CPT/HCPCS: G0463

== ENCOUNTER 2023-11-07 11:48 | Outpatient (CLI) | payer BC, SELFPAY ==
--- OUTSIDE RECORDS SUMMARY | 2023-11-11 11:53 | XMS_ITS | Clinical Summary ---
Author Organization [facility] Address [address] [place] [address] Care Team Providers Care Modeler Name Role Phone Jessenia Lott APRN, C.N.P. Primary Care Pro vider Source Comments Patient records contain information from all sites at [facility]. For routine questions regarding patient records, call [phone] during business hours, M-F 8:00 AM - 5:00 PM Central Time. Record requests for emergency care only can be directed to [phone] at any time.[facility] Allergies No known active allergies Medications Medication Sig Dispensed Refills Start Date End Date Status spironolactone (ALDACTONE) 50 mg tablet Take 1 tablet by mouth daily. 100 mg in the AM and 50 mg in the PM 05/18/2021 Active 113/iron/lmfol/ome g3s ( 787-OIZM-LOGRUA-OM EG3 ORAL) Take 1 tablet by mouth [...] Encounters Date Type Department Care Team Description 08/17/2023 Clinical Communication Department of Cardiovascular Diseases in [address] [address] External, Referring Provider from Last 3 Months Immunizations Name Administration [...] often do you attend chur ch or shinto services? 1 to 4 times per year 12/14/2021 Do you belong to any clubs o r organizations such as jehovah's witness groups, unions, fraternal or athletic groups, or [...] Answer Date Recorded PHQ-2 Score 0 05/18/2021 [facility] - Occupational [...] place to sleep or slept in a mcfp (including now)? No 12/14/2021 Nutrition Answer Date [...] Sex Assigned at Female 04/30/2021 10:45 AM CLINICAL EDUCATION SPECIALIST Gender Identity Female 04/30/2021 10:45 AM CLINICAL EDUCATION SPECIALIST Sexual Orientation Straight 04/30/2021 10 :45 AM CLINICAL EDUCATION SPECIALIST Last Filed Vital Signs Vital Sign Reading [...] COVID-19 Vaccine (1 - 2022-24 season) 2022 Depression Screening (Annual PHQ-2) 04/24/2023 Influenza Vaccine (#1) 2024 0, 02/08/2019 Cervical Cancer Screening 05/28/20242021, 12/03/2018 (Performed elsewhere) DTaP,Tdap,and Td Vaccines (3 [...] EAE AMPLIFIED RNA Routine 05/28/2021 4:31 PM CLINICAL EDUCATION SPECIALIST Preventive Gynecological Exam THINPREP SCREEN HPV REFLEX Routine 05/28/2021 4:31 PM CLINICAL EDUCATION SPECIALIST Preventive Gynecological Exam from Last 3 Months or Most Recently Relevant to Health Maintenance Results * ThinPrep Screen HPV Reflex (05/28/2021 4:31 PM CLINICAL EDUCATION SPECIALIST) 05/31/2021 3:47 PM CLINICAL EDUCATION SPECIALIST [facility] Report electronically signed by MOISÉS Lucas([facility]) I verify that I have examined all relevant slides/materials for the specimen(s) and rendered or confirmed the diagnosis. 05/31/2021 3:47 PM CLINICAL EDUCATION SPECIALIST [facility] Gross Description Received specimen in a ThinPrep vial. 05/31/2021 3:47 PM CLINICAL EDUCATION SPECIALIST [facility] Pap Test Source Cervical/Endocervi beba 05/31/2021 3:47 PM CLINICAL EDUCATION SPECIALIST [facility] Interpretation Cervical/Endocervi beba ??(ThinPrep): Satisfactory for Evaluation Negative for Intraepithelial Lesion or Malignancy 05/31/2021 3:47 PM CLINICAL EDUCATION SPECIALIST [facility] Varies (Cervix/Endocerv ix) 05/28/2021 4:31 PM CLINICAL EDUCATION SPECIALIST 05/31/2021 7:15 AM CLINICAL EDUCATION SPECIALIST Urban Mahmood Jr., M.D. LAB PAP PATHDX ORDERABLES Performing Organization Address City/[facility]/ZIP Co de Phone Number [facility] [address] [place] [id number], [facility] [address] [place] [phone] * Chlamydia / Gonorrhoeae Amplified RNA (05/28/2021 4:31 PM CLINICAL EDUCATION SPECIALIST) Source Swab, Vagina 05/31/2021 3:24 PM CLINICAL EDUCATION SPECIALIST [facility]TO Chlamydia trachomatis amplified RNA Negative Negative 05/31/2021 3:24 PM CLINICAL EDUCATION SPECIALIST [facility] Source Swab, Vagina 05/31/2021 3:24 PM CLINICAL EDUCATION SPECIALIST [facility] Neisseria gonorrhoeae amplified RNA Negative Negative 05/31/2021 3:24 PM CLINICAL EDUCATION SPECIALIST [facility] Varies (Vagina) 05/28/2021 4 :31 PM CLINICAL EDUCATION SPECIALIST 05/31/2021 10:50 AM CLINICAL EDUCATION SPECIALIST Urban Mahmood Jr., M.D. LAB MICROBIOLO GY - GENERAL ORDERABLES [facility] [address] [place] [id number], [place] MKTO [facility] in [address] [address] from Last 3 Months or Most Recently Relevant to Health Maintenance Care Teams Modeler Relationship Specialty Start Date End Date Jessenia Lott APRN, C.N.P. [address] [place] [phone] PCP - General Family Medicine 05/17/21
--- OUTSIDE RECORDS SUMMARY | 2023-11-11 11:54 | XMS_ITS | Encounter Summary ---
Author Organization [facility] Address [address] [place] [address] Care Team Providers Care Blacksmith Supervisor Name Role Phone Jessenia Lott APRN, C.N.P. Primary Care Pro vider Reason for Visit * Reason Onset Date Comments Order Request 07/14/2023 ECHO Encounter Details Date Type Department Care Team (Late st Contact Info) Description 07/14/2023 Clinical Communication Department of Radiology in [place] [id number] [place] [address] External, Referring Provider Order Request [...] often do you attend chur ch or moravian services? 1 to 4 times per year 12/14/2021 Do you belong to any clubs o r organizations such as yazdanism groups, unions, fraternal or athletic groups, or [...] Answer Date Recorded PHQ-2 Score 0 05/18/2021 [facility] Questionnaire Answer Date [...] Sex Assigned at Female 04/30/2021 10:45 AM EMBOSSER OPERATOR Gender Identity Female 04/30/2021 10:45 AM EMBOSSER OPERATOR Sexual Orientation Straight 04/30/2021 10 :45 AM EMBOSSER OPERATOR documented as of this encounter Miscellaneous Notes * Telephone Encounter - Martha Boyd - 07/18/2023 4:00 PM CDT Looks like order is for [facility] and patient lives in [place] documented in this encounter Plan of Treatment Not on file documented as of this encounter Visit Diagnoses Not on filedocumented in this encounter Care Teams Blacksmith Supervisor Relationship Specialty Start Date End Date Jessenia Lott APRN, C.N.P. [facility] [place] [address] PCP - General Family Medicine 05/17/21 documented as of this encounter
--- OUTSIDE RECORDS SUMMARY | 2023-11-11 11:54 | XMS_ITS | Encounter Summary ---
Author Organization [facility] Address [address] [place] [address] Care Team Providers Care Construction Equipment Mechanic Helper Name Role Phone Jessenia Lott APRN, C.N.P. Primary Care Pro vider Encounter Details Date Type Department Care Team (Late st Contact Info) Description 08/17/2023 Clinical Communication Department of Cardiovascular Diseases in [place], [place] [address] [place] [address] External, Referring Provider Social History Tobacco Use Types Packs/Day Years [...] often do you attend chur ch or yarsanism services? 1 to 4 times per year 12/14/2021 Do you belong to any clubs o r organizations such as mandaeism groups, unions, fraternal or athletic groups, or [...] Answer Date Recorded PHQ-2 Score 0 05/18/2021 [facility] - Occupational Stress Questionnaire Answer Date [...] place to sleep or slept in a usp (including now)? No 12/14/2021 Nutrition Answer Date [...] Sex Assigned at Female 04/30/2021 10:45 AM WELL PULLER Gender Identity Female 04/30/2021 10:45 AM WELL PULLER Sexual Orientation Straight 04/30/2021 10 :45 AM WELL PULLER documented as of this encounter Miscellaneous Notes * Telephone Encounter - Martha Boyd - 08/18/2023 1:27 PM CDT I called the patient and she isn't sure if monitor is still needed. She will call Dr. Gandara at [facility] at [phone] and find out and call back if necessary. documented in this encounter Plan of Treatment Not on file documented as of this encounter Visit Diagnoses Not on filedocumented in this encounter Care Teams Construction Equipment Mechanic Helper Relationship Specialty Start Date End Date Jessenia Lott APRN, [place] [address] PCP - General Family Medicine 05/17/21 documented as of this encounter
--- OUTSIDE RECORDS SUMMARY | 2023-11-11 11:54 | XMS_ITS | Clinical Summary ---
Author Organization [facility] Address [address] [address] Care Team Providers Care Manager Business Intelligence Name Role Phone Canelo Tarango PA-C Primary Care Provider +1- [phone] Source Comments You are receiving this document as you are listed as the primary care provider,follow-up provider, or the patient has been referred to you for consultation.This is in compliance with the Medicare and[facility] EHR Incentive Program,which states Providers who transition their patient to another setting of careor provider of care or refers their patient to another provider of care shouldprovide summary care record for each transition of care or referral. [facility] Allergies No known active allergies [...] Overview: Added automatically from request for surgery [id number] Menorrhagia 07/11/2013 10/09/2019 Immunizations Name Administration Dates Next Due HepB Adult (Engerix-B, 20+ y rs, 3 dose series) 12/10/2019,10/09/2019,07/22/2019 Influenza (LAIV), Unspecified 02/08/2019 Influenza IIV4 (Quadrivalent) 0.5mL (72773) 12/24 MMR 07/22/2019 Tdap 10/03/2018 Varicella 07/22/2019 [...] Cervical Cancer Screening 10/31/20222019 (Completed) COVID-19 Vaccine (1 - 2022-24 season) 2022 Influenza (#1) 2023 01/15/2020, 02/08/2019 DTaP/Tdap/Td (2 - Tdap) 10/03/2028 [...] Detected Not Detected 10/10/2019 5:12 PM CDT [facility] N. gonorrhoeae STD Not Detected Not Detected 10/10/2019 5:12 PM CDT [facility] Urine STD (Urine for STD) Non-blood Collection / Unknown 10/09/2019 3:28 PM CDT 10/09/2019 3:28 PM CDT Narrative [facility] - 10/10/2019 5:12 PM CDT Test performed by Molecular Detection Canelo Tarango PA-C LAB_1 Performing Organization Address [facility] Co de Phone Number [facility] [address] [place] [address], [facility] [phone] * HIV 1/2 Ag/Ab 4th Generation (10/09/2019 3:26 PM CDT) Pathologist [facility] HIV 1/2 Antigen/Anti body (4th generation) Negative (Non Reactive) Negative (Non Reactive) 10/10/2019 11:53 AM CDT [facility] Comment:HIV-1 p24 Antigen an d HIV-1/HIV-2 Antibody not detected Blood Venipuncture / Unknown 10/09/2019 3:26 PM CDT 10/09/2019 3:26 PM CDT Canelo Tarango PA-C LAB_1 Performing Organization Address [facility] Co de Phone Number [facility] [address] [place] [address], [facility] [phone] * Hepatitis C Antibody, with Reflex (10/09/2019 3:26 PM CDT) Pathologist [facility] Hepatitis C Antibody Negative (Non Reactive) Negative (Non Reactive) 10/10/2019 11:52 AM CDT [facility] Comment:Antibodies to HCV no t detected. Does not exclude the possiblity of exposure to HCV. Blood Venipuncture / Unknown 10/09/2019 3:26 PM CDT 10/09/2019 3:26 PM CDT Canelo Tarango PA-C LAB_1 [facility] [address] [address], [facility] [phone] from Last 3 Months or Most Recently Relevant to Health Maintenance Care Teams Manager Business Intelligence Relationship Specialty Start Date End Date Canelo Tarango PA-C [address] [place] [address] PCP - General Physician Web Programmer 07/17/19
--- OUTSIDE RECORDS SUMMARY | 2023-11-11 11:54 | XMS_ITS ---
Author Organization [facility] Address [address] [place] [address] Care Team Providers Care Agricultural Mechanic Name Role Phone Unavailable Unavailable Unavailable Surgery Details Not on file Complications Check Surgery Details section. Procedure Estimated Blood Loss Check Surgery Details section. Procedure Findings Check Surgery Details section. Procedure Specimens Taken Check Surgery Details section.
--- OUTSIDE RECORDS SUMMARY | 2023-11-11 11:54 | XMS_ITS | Referral Summary ---
Author Organization [facility] Address [address] [place] [address] Care Team Providers Care Manager [employer] Name Role Phone Jessenia Lott APRN C.N.P. Primary Care Pro vider Source Comments Patient records contain information from all sites at [facility]. For routine questions regarding patient records, call [phone] during business hours, M-F 8:00 AM - 5:00 PM Central Time. Record requests for emergency care only can be directed to [phone] at any time.[facility] Encounters Date Type Department Care Team Description 08/17/2023 Clinical Communication Department of Cardiovascular Diseases in [address] [id number] External, Referring Provider from Last 3 Months Allergies No known active allergies Medications Medication Sig Dispensed Refills Start Date End Date Status spironolactone (ALDACTONE) 50 mg tablet Take 1 tablet by mouth daily. 100 mg in the AM and 50 mg in the PM 05/18/2021 Active 113/iron/lmfol/ome g3s ( [id number] EG3 ORAL) Take 1 tablet by mouth [...] often do you attend chur ch or restorationism services? 1 to 4 times per year 12/14/2021 Do you belong to any clubs o r organizations such as anabaptism groups, unions, fraternal or athletic groups, or [...] Answer Date Recorded PHQ-2 Score 0 05/18/2021 [facility] - Occupational [...] Sex Assigned at Female 04/30/2021 10:45 AM RESIDENTIAL FINISH [employer] Gender Identity Female 04/30/2021 10:45 AM RESIDENTIAL FINISH [employer]PENTER Sexual Orientation Straight 04/30/2021 10 :45 AM RESIDENTIAL FINISH CARPENTER Last Filed Vital Signs Vital Sign Reading [...] EAE AMPLIFIED RNA Routine 05/28/2021 4:31 PM [employer]IDENTIAL [employer] Preventive Gynecological Exam THINPREP SCREEN HPV REFLEX Routine 05/28/2021 4:31 PM RESIDENTIAL FIN[employer] Preventive Gynecological Exam from Last 3 Months or Most Recently Relevant to Health Maintenance Results * ThinPrep Screen HPV Reflex (05/28/2021 4:31 PM RESIDENTIAL FINISH [employer]PENTER) 05/31/2021 3:47 PM RESIDENTIAL FINISH [employer] [facility] Report electronically signed by MOISÉS Lucas(ASCP) I verify that I have examined all relevant slides/materials for the specimen(s) and rendered or confirmed the diagnosis. 05/31/2021 3:47 PM RESIDENTIAL FIN[employer] [facility] Gross Description Received specimen in a ThinPrep vial. 05/31/2021 3:47 PM [employer]IDENTIAL FIN[employer] [facility] Pap Test Source Cervical/Endocervi beba 05/31/2021 3:47 PM RESIDENTIAL FINISH [employer] [facility] Interpretation Cervical/Endocervi beba ??(ThinPrep): Satisfactory for Evaluation Negative for Intraepithelial Lesion or Malignancy 05/31/2021 3:47 PM RESIDENTIAL FINISH [employer] [facility] Varies (Cervix/Endocerv ix) 05/28/2021 4:31 PM RESIDENTIAL FINISH CARPENTER 05/31/2021 7:15 AM RESIDENTIAL FINISH CARPENTER Urban Mahmood Jr., M.D. LAB PAP PATHDX ORDERABLES [facility] [address] [place] [id number], [facility] [address] [place] [id number] * Chlamydia / Gonorrhoeae Amplified RNA (05/28/2021 4:31 PM RESIDENTIAL FINISH CARPENTER) Source Swab, Vagina 05/31/2021 3:24 PM RESIDENTIAL FINISH [employer]PENTER [facility] Chlamydia trachomatis amplified RNA Negative Negative 05/31/2021 3:24 PM RESIDENTIAL FINISH [employer] [facility] Source Swab, Vagina 05/31/2021 3:24 PM RESIDENTIAL FINISH [employer] [facility] Neisseria gonorrhoeae amplified RNA Negative Negative 05/31/2021 3:24 PM RESIDENTIAL FINISH [employer] [facility] Varies (Vagina) 05/28/2021 4 :31 PM RESIDENTIAL FINISH CARPENTER 05/31/2021 10:50 AM RESIDENTIAL FINISH CARPENTER Urban Mahmood Jr., M.D. LAB MICROBIOLO GY - GENERAL ORDERABLES [facility] [address] [place] [address], [place] [facility] [place] [address] [place] [id number] from Last 3 Months or Most Recently Relevant to Health Maintenance Care Teams Manager [employer] Relationship Specialty Start Date End Date Jessenia Lott APRN, C.N.P. [address] [place] [phone] PCP - General Family Medicine 05/17/21
== END 2023-11-07 11:49 | disposition home or self-care (01) ==
LOC: NFLDREF 11-11 11:52
PROVIDERS: PCP Family Medicine; Referring Provider Family Medicine; Visit Provider Physician Assistant
DX: R30.0 Dysuria (principal); N39.0 Urinary tract infection, site not specified; S91.319A Laceration without foreign body, unspecified foot, initial encounter
CPT/HCPCS: 87086; 87186

== ENCOUNTER 2024-07-15 10:30 | Outpatient (CLI) | payer BC, SELFPAY | END 2024-07-15 10:31 | disposition home or self-care (01) | PROVIDERS: PCP Family Medicine; Visit Provider Family Medicine | DX: R53.83 Other fatigue (principal); Z13.21 Encounter for screening for nutritional disorder; Z13.29 Encounter for screening for other suspected endocrine disorder | CPT/HCPCS: 82306; 84443 ==